=== PATIENT | female | born 1945 | race Caucasian/White ===

== ENCOUNTER 2017-06-21 02:36 | Emergency (ER) | payer MEDICARE, OTHER ==
[2017-06-21] MEDS ORDERED: Aspirin 81 MG Tab.Chew PO ONE (02:50)
[2017-06-21] MEDS: Sodium Chloride 0.9% 10 ML Syringe FLUSH PRN ×2 (02:55→04:00)
[2017-06-21] MEDS ORDERED: Nitroglycerin 0.4 MG Tab.SL SL PRN (03:51)
[2017-06-21] MEDS ORDERED: Ketorolac 30 MG/ML SDV IM ONE (03:52)
[2017-06-21] MEDS ORDERED: Ketorolac 30 MG/ML SDV IVPUSH ONE (03:54)
[2017-06-21 04:44] VITALS: BP 150/117
--- NOTE | 2017-06-21 11:01 | CR ---
INDICATION: Mid chest pain. CHEST: AP upright portable view of the chest 06/21/2017 was compared with 03/11 and 03/10/2016, revealing no definite interval change or acute process. The heart, again, appears to be enlarged. Minimal calcification in the arch of the aorta is suggested. The lungs appear to be slightly hyperaerated. A definite active infiltrate or effusion was not identified. Overlying EKG leads are noted. Evidence of exogenous obesity is noted. Degenerative changes are noted at the glenohumeral joints, left greater than right. IMPRESSION: Stable chest. No acute process. Multiple findings as noted above. MTDD
--- NOTE | 2017-06-22 01:57 | ER ---
DATE SEEN: 06/21/2017 TIME OF SERVICE: 0400 hours. HISTORY OF PRESENT ILLNESS: A 71-year-old female who came in to the ER on Monday morning with complaints of retrosternal chest pain 01/25. This started about 2100 hours. She had also fallen a few days ago and complains of pain in the left rib cage, worse with sudden movements. The pain when she presented was slightly relieved by nitroglycerin. This was not associated with any diaphoresis, vomiting, or shortness of breath. PAST MEDICAL HISTORY: I reviewed her past medical history that included type 2 diabetes, hypertension, history of PE. She was seen last year in February for similar symptoms as above and at that time the technical clerk and Dr. Shepherd believed that the pain was not cardiac based on the EKG findings and the labs. REVIEW OF SYSTEMS: She denies any anxiety, fevers, chills, cough, or cold symptoms. No constipation or heartburn. No dyspepsia. CURRENT MEDICATIONS: Please see the electronic record which was reviewed extensively. ALLERGIES: Please see the electronic record which was reviewed extensively. PHYSICAL EXAMINATION: VITAL SIGNS: Blood pressure initially 150/117, temperature 96.7, and pulse is 55, oxygenation was normal at 97%. ENT: Negative. NECK: Supple. Trachea is midline. CHEST: There is reproducible tenderness in the sternum. LUNGS: Clear. CARDIOVASCULAR: Normal. EXTREMITIES: No edema. MENTAL STATUS: Alert. LABORATORY DATA: White cell count was normal. Troponin was negative. EKG was normal. Chest x-ray was unremarkable. IMPRESSION: Atypical chest pain. PLAN: I gave her ketorolac which seemed to help some of her symptoms. I kept for six more hours so she could obtain a troponin, repeat and see if the symptoms are better. Dr. Garza will take over care at that time. /[id number] ALOK/GASTON
== END 2017-06-21 09:10 | disposition home or self-care (01) ==
LOC: FB.ED 02:36
DX: R07.89 Other chest pain (principal); E11.9 Type 2 diabetes mellitus without complications; I10 Essential (primary) hypertension; Z86.711 Personal history of pulmonary embolism
CPT/HCPCS: 36415; 71010; 80053; 82550; 82553; 84484; 85025; 93005; 99284; 99285; A9270; J1885; J7050; 96374

== ENCOUNTER 2017-07-21 08:41 | Emergency (ER) | payer MEDICARE, OTHER ==
[2017-07-21] MEDS ORDERED: Aspirin 81 MG Tab.Chew PO ONE (08:52)
[2017-07-21] MEDS ORDERED: Alum Hydroxide/Mag Hydroxide 30 ML, Lidocaine 2% 15 ML PO ONE ×4 (09:24→11:25)
--- NOTE | 2017-07-21 09:31 | EDM.PDOC ---
ED HPI GENERAL MEDICAL PROBLEM - General Chief Complaint: Chest Pain Stated Complaint: CHEST PAIN Time Seen by Provider: 07/21/17 09:05 Source of Information: Reports: Patient History Limitations: Reports: Altered Mental Status - History of Present Illness INITIAL COMMENTS - FREE TEXT/NARRATIVE: c/o lower sternal CP inc'd tender to palpation sternum, epigastrium also tender, since 3 AM, 6h has healing shingles under R breast around to back, present x 3w, pt says it gets worse when she gets flu vaccine lives in own house in [place], says her single adult son is going to move in with her no apparent distress, pleasant, talkative, says she took her morning meds on omeprazole for GERD on propranolol 80 mg qd and atenolol 100 mg qd as per EHR recent labs with CBC 1 1m ago, BUN/creat 28/1.1 1m ago (BUN 16 1y ago), mg 1.4 1y ago, CRP >20 1y ago, ammonia 69 1y ago, trop <.01 1m ago, BNP 45 1y ago recent imaging: CxR with cardiomegaly and DJD and nothing acute 1m ago EKG today with SR 47, no ST changes, RRR PMH includes dementia, DM - Related Data Allergies Allergy/AdvReac Type Severity Reaction Status Date / Time codeine Allergy Cannot Verified 07/21/17 09:07 Remember oxycodone [Oxycodone] Allergy Headache Verified 07/21/17 09:07 Penicillins Allergy Cannot Verified 07/21/17 09:07 Remember Home Meds: Home Meds Atenolol 100 mg PO WITHDINNER 04/18/14 [History] atorvaSTATin [Lipitor] 20 mg PO WITHDINNER 04/18/14 [History] carBAMazepine [Carbamazepine] 200 mg PO BID 04/18/14 [History] Albuterol Sulfate [Proair Hfa] 2 puff INH QID PRN 02/22/16 [History] Citalopram Hydrobromide [Citalopram HBr] 10 mg PO BEDTIME 02/22/16 [History] Levothyroxine Sodium [Synthroid] 75 mcg PO DAILY 02/22/16 [History] Omeprazole 20 mg PO BIDAC 02/22/16 [History] Aspirin [Adult Low Dose Aspirin EC] 81 mg PO BEDTIME 02/23/16 [History] Acetaminophen [Tylenol] 650 mg PO Q4H PRN #0 tablet 02/29/16 [Rx] Insulin Aspart [NovoLOG] See Protocol SUBCUT TIDMEALS 30 Days pen 02/29/16 [Rx] Donepezil [Aricept] 5 mg PO BEDTIME 06/21/17 [History] Gabapentin [Neurontin] 100 mg PO QID 06/21/17 [History] Insulin Detemir [Levemir] 32 unit SUBCUT DAILY 06/21/17 [History] Propranolol [Inderal LA] 80 mg PO DAILY 06/21/17 [History] glipiZIDE [Glipizide ER] 10 mg PO DAILY 06/21/17 [History] metFORMIN [Glucophage] 1,000 mg PO BIDMEALS 06/21/17 [History] Magnesium Oxide 400 mg PO DAILY #30 tab 07/21/17 [Rx] Past Medical History - Past Health History Medical/Surgical History: Denies Medical/Surgical History HEENT History: Reports: Cataract, Glaucoma, Hard of Hearing, Other (See Below) Other HEENT History: presbycusis, bryan hearing aids Cardiovascular History: Reports: High Cholesterol, Hypertension, Other (See Below) Other Cardiovascular History: Recent history of chest discomfort. Respiratory History: Reports: Sleep Apnea, Other (See Below) Other Respiratory History: uses CPAP at night Gastrointestinal History: Reports: GERD Genitourinary History: Reports: Urinary Incontinence, Other (See Below) Other Genitourinary History: urinary incontinence mostly at night MESS COOK History: Reports: Musculoskeletal History: Reports: Back Pain, Chronic, Osteoarthritis Neurological History: Reports: Neuropathy, Peripheral, Seizure Endocrine/Metabolic History: Reports: Diabetes, Type II, Hypothyroidism - Past Surgical History HEENT Surgical History: Reports: None Cardiovascular Surgical History: Reports: None GI Surgical History: Reports: Appendectomy Female Surgical History: Reports: Hysterectomy, Oophorectomy Musculoskeletal Surgical History: Reports: Carpal Tunnel, Hip Replacement, Other (See Below) Other Musculoskeletal Surgeries/Procedures:: right hip replacement Social & Family History - Family History Family Medical History: Noncontributory - Tobacco Use Smoking Status *Q: Never Smoker Second Hand Smoke Exposure: No - Caffeine Use Caffeine Use: Reports: None - Alcohol Use Days Per Week of Alcohol Use: 0 - Recreational Drug Use Recreational Drug Use: No ED ROS GENERAL - Review of Systems Review Of Systems: See Below Constitutional: Reports: No Symptoms HEENT: Reports: No Symptoms Respiratory: Reports: No Symptoms. Denies: Shortness of Breath, Wheezing, Pleuritic Chest Pain, Cough Cardiovascular: Reports: Chest Pain Endocrine: Reports: No Symptoms GI/Abdominal: Reports: Abdominal Pain. Denies: Nausea, Vomiting : Reports: No Symptoms Musculoskeletal: Reports: No Symptoms Skin: Reports: No Symptoms Neurological: Reports: Confusion Psychiatric: Reports: No Symptoms Hematologic/Lymphatic: Reports: No Symptoms Immunologic: Reports: No Symptoms ED EXAM, GENERAL - Physical Exam Exam: See Below Exam Limited By: Other (friendly, talkative, NAD, nontoxic) General Appearance: Alert, WD/WN, No Apparent Distress Eye Exam: Bilateral Eye: EOMI, Normal Inspection, PERRL Ears: Normal External Exam, Hearing Grossly Normal Nose: Normal Inspection, Normal Mucosa, No Blood Throat/Mouth: Normal Inspection, Normal Lips, Normal Oropharynx, Normal Voice, No Airway Compromise Head: Atraumatic, Normocephalic Neck: Normal Inspection, Supple, Non-Tender Respiratory/Chest: No Respiratory Distress, Lungs Clear, Normal Breath Sounds, No Accessory Muscle Use, Chest Non-Tender, Other (no dyspnea) Cardiovascular: Regular Rate, Rhythm, No Gallop, No Rub, Other (trace edema b/l , symmetric, quiet precordium, 2/6 MARIAM at LSB) GI/Abdominal: Normal Bowel Sounds, Soft, No Organomegaly, No Distention, Other ( 1+ tender at epigastrium and lower sternum) Back Exam: Normal Inspection, Full Range of Motion, NT Extremities: Normal Inspection, Non-Tender Neurological: Alert, CN II-XII Intact, No Motor/Sensory Deficits. No: Oriented , Normal Cognition Psychiatric: Normal Affect, Normal Mood Skin Exam: Warm, Dry, Intact, Normal Color, Other (under R breast is a dry maculopapular rash wrapping around the dermatone to midline of back with multiple dried ulcers of back) Course - Vital Signs Last Recorded V/S: Last Vital Signs Temp 36.8 C 07/21/17 08:45 Pulse 46 L 07/21/17 08:45 Resp 16 07/21/17 08:45 BP 135/57 L 07/21/17 08:45 Pulse Ox 97 07/21/17 08:45 - Orders/Labs/Meds Orders: Active Orders 24 hr Category Date Time Status AMMONIA [REF] Stat Lab 07/21/17 09:45 Received EKG 12 Lead [EK] Routine Ther 07/21/17 09:23 Ordered Labs: Laboratory Tests 07/21/17 07/21/17 07/21/17 Range/Units 09:45 09:45 09:45 WBC 7.1 (4.5-12.0) X10-3/uL RBC 3.97 (3.23-5.20) x10(6)uL Hgb 12.4 (11.5-15.5) g/dL Hct 37.0 (30.0-51.3) % MCV 93.2 (80-96) fL MCH 31.3 (27.7-33.6) pg MCHC 33.6 (32.2-35.4) g/dL RDW 13.7 (11.5-15.5) % Plt Count 160 (125-369) X10(3)uL MPV 8.0 (7.4-10.4) fL Neut % (Auto) 65.0 (46-82) % Lymph % (Auto) 27.8 (13-37) % [place] % (Auto) 6.9 (4-12) % Eos % (Auto) 0 L (1.0-5.0) % Baso % (Auto) 0 (0-2) % Neut # (Auto) 4.6 (1.6-8.3) # Lymph # (Auto) 2.0 (0.6-5.0) # [place]ws # (Auto) 0.5 (0.0-1.3) # Eos # (Auto) 0.0 (0.0-0.8) # Baso # (Auto) 0.0 (0.0-0.2) # Sodium 137 (135-145) mmol/L Potassium 6.0 H D (3.5-5.3) mmol/L Chloride 107 (100-110) mmol/L Carbon Dioxide 20 L (23-29) mmol/L BUN 39 H D (8-23) mg/dL Creatinine 1.2 (0.6-1.3) mg/dL Est Cr Clr Drug Dosing 32.45 mL/min Estimated GFR (MDRD) 44 L (>60) BUN/Creatinine Ratio 32.5 H (9-20) Glucose 103 (80-116) mg/dL Calcium 9.0 (8.6-10.2) mg/dL Magnesium 1.6 L (1.8-2.5) mg/dL Total Bilirubin 0.6 (0.1-1.3) mg/dL AST 15 D (5-27) IU/L ALT 14 (14-26) IU/L Alkaline Phosphatase 50 L (56-112) IU/L Troponin I < 0.01 L (0.02-0.06) NG/ML C-Reactive Protein < 0.5 (0.0-1.0) mg/dL Total Protein 7.2 (6.0-8.0) g/dL Albumin 4.0 (3.2-4.6) g/dL Globulin 3.2 g/dL Albumin/Globulin Ratio 1.3 Amylase (28-100) U/L Carbamazepine (4.0-10.0) Ug/mL 07/21/17 Range/Units 09:45 WBC (4.5-12.0) X10-3/uL RBC (3.23-5.20) x10(6)uL Hgb (11.5-15.5) g/dL Hct (30.0-51.3) % MCV (80-96) fL MCH (27.7-33.6) pg MCHC (32.2-35.4) g/dL RDW (11.5-15.5) % Plt Count (125-369) X10(3)uL MPV (7.4-10.4) fL Neut % (Auto) (46-82) % Lymph % (Auto) (13-37) % [place] % (Auto) (4-12) % Eos % (Auto) (1.0-5.0) % Baso % (Auto) (0-2) % Neut # (Auto) (1.6-8.3) # Lymph # (Auto) (0.6-5.0) # Mathews # (Auto) (0.0-1.3) # Eos # (Auto) (0.0-0.8) # Baso # (Auto) (0.0-0.2) # Sodium (135-145) mmol/L Potassium (3.5-5.3) mmol/L Chloride (100-110) mmol/L Carbon Dioxide (23-29) mmol/L BUN (8-23) mg/dL Creatinine (0.6-1.3) mg/dL Est Cr Clr Drug Dosing mL/min Estimated GFR (MDRD) (>60) BUN/Creatinine Ratio (9-20) Glucose (80-116) mg/dL Calcium (8.6-10.2) mg/dL Magnesium (1.8-2.5) mg/dL Total Bilirubin (0.1-1.3) mg/dL AST (5-27) IU/L ALT (14-26) IU/L Alkaline Phosphatase (56-112) IU/L Troponin I (0.02-0.06) NG/ML C-Reactive Protein (0.0-1.0) mg/dL Total Protein (6.0-8.0) g/dL Albumin (3.2-4.6) g/dL Globulin g/dL Albumin/Globulin Ratio Amylase 76 (28-100) U/L Carbamazepine 7.7 (4.0-10.0) Ug/mL Meds: Medications Discontinued Medications Generic Name Dose Route Start Last Admin Trade Name Freq PRN Reason Stop Dose Admin Aspirin 324 mg 07/21/17 08:52 07/21/17 08:52 Aspirin PO 07/21/17 08:53 324 mg ONETIME ONE Administration Al Hydroxide/Mg Hydroxide 30 0 ml 07/21/17 09:24 07/21/17 09:41 ml/ Lidocaine HCl 15 ml PO 07/21/17 09:25 15 ml ONETIME ONE Administration Al Hydroxide/Mg Hydroxide 30 0 ml 07/21/17 11:25 07/21/17 11:35 ml/ Lidocaine HCl 15 ml PO 07/21/17 11:26 15 ml ONETIME ONE Administration - Re-Assessments/Exams Free Text/Narrative Re-Assessment/Exam: 07/21/17 11:23 pt apparently had apt in clinic today but decided to take a taxi to ED instead epigastric pain and tenderness gone after GI cocktail, now back a little bit and will repeat GI cocktail I repeated 3x times that she had GERD and needed to increase fluids and use liquid antacids, pt did not seem to understand altho she did know today's day and date she continues to smile and is cheerful Departure - Departure Time of Disposition: 11:28 Disposition: Home, Self-Care 01 Condition: Good Clinical Impression: GERD (gastroesophageal reflux disease), Dehydration, Elevated BUN, Hypomagnesemia, Sinus bradycardia, Hyperkalemia Prescriptions: Magnesium Oxide 400 mg PO DAILY #30 tab Referrals: Newton Jacobs MD [Primary Care Provider] - Forms: ED Department Discharge Additional Instructions: To increase your heart rate, stop taking the propranolol. Continue your other medications. To replace your magnesium, start taking magnesium oxide 400 mg 1 tab daily. Increase your fluids as you are dehydrated. Drink at least 1.5 liters of fluids without caffeine daily. For heartburn (pain in your lower sternum and upper abdomen), take liquid antacids (such as Maalox or Mylanta) 2 tablespoons 2 hours after meals and bedtime for 1 week, then every 4 hours as needed. See Dr Jacobs in 3 days. Return to ED if you are feeling worse. - My Orders Last 24 Hours: My Active Orders 07/21/17 09:23 EKG 12 Lead [EK] Routine 07/21/17 09:45 AMMONIA [REF] Stat - Assessment/Plan Last 24 Hours: My Active Orders 07/21/17 09:23 EKG 12 Lead [EK] Routine 07/21/17 09:45 AMMONIA [REF] Stat
[2017-07-21 10:18] VITALS: BP 135/57
== END 2017-07-21 12:43 | disposition home or self-care (01) ==
LOC: FB.ED 08:41
DX: K21.9 Gastro-esophageal reflux disease without esophagitis (principal); E86.0 Dehydration; E83.42 Hypomagnesemia; R00.1 Bradycardia, unspecified; E87.5 Hyperkalemia; R79.89 Other specified abnormal findings of blood chemistry; I10 Essential (primary) hypertension; E11.9 Type 2 diabetes mellitus without complications; Z79.4 Long term (current) use of insulin; Z79.899 Other long term (current) drug therapy; Z88.0 Allergy status to penicillin; Z88.5 Allergy status to narcotic agent; Z88.6 Allergy status to analgesic agent
CPT/HCPCS: 36415; 80053; 80156; 82140; 82150; 83735; 84484; 85025; 86140; 93005; 99283; A9270; 99284

== ENCOUNTER 2017-08-01 09:48 | Emergency (ER) | payer MEDICARE, OTHER ==
[2017-08-01 09:52] VITALS: BP 172/59
[2017-08-01] MEDS ORDERED: Alum Hydroxide/Mag Hydroxide 15 ML, Lidocaine 2% 15 ML PO ONE ×2 (10:13)
--- NOTE | 2017-08-01 10:50 | EDM.PDOC ---
ED HPI GENERAL MEDICAL PROBLEM - General Chief Complaint: Chest Pain Stated Complaint: CHEST PAIN Time Seen by Provider: 08/01/17 10:01 Source of Information: Reports: Patient History Limitations: Reports: No Limitations - History of Present Illness INITIAL COMMENTS - FREE TEXT/NARRATIVE: c/o epigastric pain daily had sharp epigastric pain last night, went to bed at 9 PM and slept until 5:30 AM, still with epigastric pain and some under lower sternum, not taken AA, on omeprazole, not eaten today had same sxs 11d ago in ED and dx with GERD, pain relieved with GI cocktail x 2 , has not been taking AA 30 cc QID as prescribed, did take Mg for low Mg has not seen PCP Dr Jacobs who is on vacation, has an apt with him 08/16 no n/v, no f/c/d, no sob Chest Pain Score (Numeric/FACES): 2 - Related Data Allergies Allergy/AdvReac Type Severity Reaction Status Date / Time codeine Allergy Cannot Verified 08/01/17 09:50 Remember oxycodone [Oxycodone] Allergy Headache Verified 08/01/17 09:50 Penicillins Allergy Cannot Verified 08/01/17 09:50 Remember Home Meds: Home Meds Atenolol 100 mg PO WITHDINNER 04/18/14 [History] atorvaSTATin [Lipitor] 20 mg PO WITHDINNER 04/18/14 [History] carBAMazepine [Carbamazepine] 200 mg PO BID 04/18/14 [History] Citalopram Hydrobromide [Citalopram HBr] 10 mg PO BEDTIME 02/22/16 [History] Levothyroxine Sodium [Synthroid] 75 mcg PO DAILY 02/22/16 [History] Omeprazole 20 mg PO BIDAC 02/22/16 [History] Aspirin [Adult Low Dose Aspirin EC] 81 mg PO BEDTIME 02/23/16 [History] Acetaminophen [Tylenol] 650 mg PO Q4H PRN #0 tablet 02/29/16 [Rx] Insulin Aspart [NovoLOG] See Protocol SUBCUT TIDMEALS 30 Days pen 02/29/16 [Rx] Donepezil [Aricept] 5 mg PO BEDTIME 06/21/17 [History] Gabapentin [Neurontin] 300 mg PO TID 06/21/17 [History] Insulin Detemir [Levemir] 32 unit SUBCUT BEDTIME 06/21/17 [History] Propranolol [Inderal LA] 80 mg PO DAILY 06/21/17 [History] glipiZIDE [Glipizide ER] 10 mg PO DAILY 06/21/17 [History] metFORMIN [Glucophage] 1,000 mg PO BIDMEALS 06/21/17 [History] Ferrous Sulfate 1 tab PO DAILY 07/21/17 [History] Magnesium Oxide 400 mg PO DAILY #30 tab 07/21/17 [Rx] traMADol [Ultram] 1 tab PO DAILY PRN 07/21/17 [History] Sucralfate 1 gm PO QID #40 tablet 08/01/17 [Rx] Past Medical History - Past Health History Medical/Surgical History: Denies Medical/Surgical History HEENT History: Reports: Cataract, Glaucoma, Hard of Hearing, Other (See Below) Other HEENT History: presbycusis, bryan hearing aids Cardiovascular History: Reports: High Cholesterol, Hypertension, Other (See Below) Other Cardiovascular History: Recent history of chest discomfort. Respiratory History: Reports: Sleep Apnea, Other (See Below) Other Respiratory History: uses CPAP at night Gastrointestinal History: Reports: GERD Genitourinary History: Reports: Urinary Incontinence, Other (See Below) Other Genitourinary History: urinary incontinence mostly at night [employer] History: Reports: Musculoskeletal History: Reports: Back Pain, Chronic, Osteoarthritis Neurological History: Reports: Neuropathy, Peripheral, Seizure Endocrine/Metabolic History: Reports: Diabetes, Type II, Hypothyroidism - Infectious Disease History Infectious Disease History: Reports: Chicken Pox, Shingles - Past Surgical History HEENT Surgical History: Reports: None Cardiovascular Surgical History: Reports: None GI Surgical History: Reports: Appendectomy Female Surgical History: Reports: Hysterectomy, Oophorectomy Musculoskeletal Surgical History: Reports: Carpal Tunnel, Hip Replacement, Other (See Below) Other Musculoskeletal Surgeries/Procedures:: right hip replacement Social & Family History - Family History Family Medical History: Noncontributory - Tobacco Use Smoking Status *Q: Never Smoker Second Hand Smoke Exposure: No - Caffeine Use Caffeine Use: Reports: None - Alcohol Use Days Per Week of Alcohol Use: 0 - Recreational Drug Use Recreational Drug Use: No ED ROS GENERAL - Review of Systems Review Of Systems: See Below Constitutional: Reports: No Symptoms HEENT: Reports: No Symptoms Respiratory: Reports: No Symptoms Cardiovascular: Reports: No Symptoms Endocrine: Reports: No Symptoms GI/Abdominal: Reports: Abdominal Pain : Reports: No Symptoms Musculoskeletal: Reports: No Symptoms Skin: Reports: No Symptoms Neurological: Reports: No Symptoms Psychiatric: Reports: No Symptoms Hematologic/Lymphatic: Reports: No Symptoms Immunologic: Reports: No Symptoms ED EXAM, GI/ABD - Physical Exam Exam: See Below Exam Limited By: No Limitations General Appearance: Alert, WD/WN, No Apparent Distress Head: Atraumatic, Normocephalic Neck: Normal Inspection Respiratory/Chest: No Respiratory Distress, Lungs Clear, Normal Breath Sounds, No Accessory Muscle Use, Chest Non-Tender Cardiovascular: Normal Peripheral Pulses, Regular Rate, Rhythm, No Edema, No Gallop, No JVD, No Rub GI/Abdominal Exam: Normal Bowel Sounds, Soft, No Organomegaly, No Distention, No Mass, Other (1+ epigastric pain localized below xiphoid, sternum NT) Back Exam: Normal Inspection, Full Range of Motion, NT Extremities: Normal Inspection, Normal Range of Motion, Non-Tender, No Pedal Edema Neurological: Alert, Oriented, CN II-XII Intact, No Motor/Sensory Deficits Psychiatric: Normal Affect, Normal Mood Skin Exam: Warm, Dry, Intact, Normal Color, No Rash Lymphatic: No Adenopathy Course - Vital Signs Last Recorded V/S: Last Vital Signs Temp 36.7 C 08/01/17 09:51 Pulse 50 L 08/01/17 09:51 Resp 18 08/01/17 09:51 BP 172/59 H 08/01/17 09:51 Pulse Ox 96 08/01/17 09:51 - Orders/Labs/Meds Orders: Active Orders 24 hr Category Date Time Status EKG 12 Lead [EK] Routine Ther 08/01/17 10:33 Ordered Labs: Laboratory Tests 08/01/17 08/01/17 08/01/17 Range/Units 10:20 10:20 10:20 WBC 5.0 (4.5-12.0) X10-3/uL RBC 3.68 (3.23-5.20) x10(6)uL Hgb 11.3 L (11.5-15.5) g/dL Hct 34.4 (30.0-51.3) % MCV 93.5 (80-96) fL MCH 30.8 (27.7-33.6) pg MCHC 32.9 (32.2-35.4) g/dL RDW 14.1 (11.5-15.5) % Plt Count 165 (125-369) X10(3)uL MPV 8.2 (7.4-10.4) fL Neut % (Auto) 54.5 (46-82) % Lymph % (Auto) 34.0 (13-37) % [place] % (Auto) 10.9 (4-12) % Eos % (Auto) 0 L (1.0-5.0) % Baso % (Auto) 1 (0-2) % Neut # (Auto) 2.8 (1.6-8.3) # Lymph # (Auto) 1.7 (0.6-5.0) # [place] # (Auto) 0.5 (0.0-1.3) # Eos # (Auto) 0.0 (0.0-0.8) # Baso # (Auto) 0.0 (0.0-0.2) # Sodium 137 (135-145) mmol/L Potassium 5.1 (3.5-5.3) mmol/L Chloride 104 (100-110) mmol/L Carbon Dioxide 28 (23-29) mmol/L BUN 29 H D (8-23) mg/dL Creatinine 1.0 (0.6-1.3) mg/dL Est Cr Clr Drug Dosing 38.94 mL/min Estimated GFR (MDRD) 55 L (>60) BUN/Creatinine Ratio 29.0 H (9-20) Glucose 103 (80-116) mg/dL Calcium 9.0 (8.6-10.2) mg/dL Magnesium 2.0 (1.8-2.5) mg/dL Troponin I < 0.01 L (0.02-0.06) NG/ML Meds: Medications Discontinued Medications Generic Name Dose Route Start Last Admin Trade Name Bhupendraq PRN Reason Stop Dose Admin Al Hydroxide/Mg Hydroxide 15 0 ml 08/01/17 10:13 08/01/17 10:18 ml/ Lidocaine HCl 15 ml PO 08/01/17 10:14 15 ml ONETIME ONE Administration Al Hydroxide/Mg Hydroxide 30 0 ml 08/01/17 11:00 08/01/17 11:11 ml/ Lidocaine HCl 15 ml PO 08/01/17 11:01 45 ml ONETIME ONE Administration - Re-Assessments/Exams Free Text/Narrative Re-Assessment/Exam: 08/01/17 11:26 BUN 29 and down from 39 c/w inc'd fluid intake Mg corrected form 1.6 to 2.0, pt asked re taking Mg oxide 400 mg bid rather than qd, altho qd has worked just fine trop neg at <0.01, EKG neg hgb now 11.3, was 12.4, cannot exclude PUD was oozing RBC, however the decrease in hgb more likely d/t rehydration may need EGD if sxs persist, will add carafate pain and tender in epigastrium gone after GI cocktail x 2 Departure - Departure Time of Disposition: 11:28 Disposition: Home, Self-Care 01 Condition: Good Clinical Impression: GERD (gastroesophageal reflux disease) - Discharge Information Prescriptions: Sucralfate 1 gm PO QID #40 tablet Referrals: Newton Jacobs MD [Primary Care Provider] - Forms: ED Department Discharge Additional Instructions: To decrease acid production, continue the omeprazole 20 mg daily. To neutralize acid, continue with liquid antacid 15 cc 2 hours after meals and bedtime for 10 days. To coat and protect the stomach, add sucralfate 1 gm 1 tab 1 hour before meals and bedtime for 10 days. Continue the magnesium oxide 400 mg 1 tab daily, which is working just fine, as your magnesium level has now corrected back to normal. Continue your other meds. See Dr Jacobs on 08/16 as scheduled. Call your Physician or Return to Emergency Department if: * Your condition worsens in any way. * You develop fever greater than 100.4. * You have vomitting that does not stop with medications. * You have pain that is not controlled with medications. - My Orders Last 24 Hours: My Active Orders 08/01/17 10:33 EKG 12 Lead [EK] Routine - Assessment/Plan Last 24 Hours: My Active Orders 08/01/17 10:33 EKG 12 Lead [EK] Routine
[2017-08-01] MEDS ORDERED: Alum Hydroxide/Mag Hydroxide 30 ML, Lidocaine 2% 15 ML PO ONE ×2 (11:00)
== END 2017-08-01 11:40 | disposition home or self-care (01) ==
LOC: FB.ED 09:48
DX: K21.9 Gastro-esophageal reflux disease without esophagitis (principal); I10 Essential (primary) hypertension; E78.00 Pure hypercholesterolemia, unspecified; G47.30 Sleep apnea, unspecified; E11.42 Type 2 diabetes mellitus with diabetic polyneuropathy; E03.9 Hypothyroidism, unspecified; Z79.4 Long term (current) use of insulin; Z79.82 Long term (current) use of aspirin; Z79.899 Other long term (current) drug therapy; Z88.0 Allergy status to penicillin; Z88.5 Allergy status to narcotic agent; Z88.6 Allergy status to analgesic agent
CPT/HCPCS: 36415; 80048; 83735; 84484; 85025; 93005; 99285; A9270; 99284

== ENCOUNTER 2018-09-11 11:55 | Inpatient (IN) | payer MEDICARE, OTHER ==
[2018-09-12] MEDS ORDERED: Magnesium Hydroxide 400 MG/5 ML Susp 30 ML Cup PO PRN (12:43)
[2018-09-12] MEDS ORDERED: Bisacodyl 5 MG Tab PO PRN (12:43)
[2018-09-12] MEDS ORDERED: Sodium Chloride 0.65% Nasal Spray 45 ML Bottle NASBOTH PRN (12:43)
[2018-09-12] MEDS ORDERED: Bisacodyl 10 MG Supp RECTAL PRN (12:43)
[2018-09-12] MEDS ORDERED: Acetaminophen 325 MG Tab PO SCH (14:00)
[2018-09-12] MEDS: oxyCODONE 5 MG Tab PO PRN (17:10)
[2018-09-12] MEDS ORDERED: Ertapenem 1 GM Vial IV SCH (18:00)
--- NOTE | 2018-09-12 18:17 | PCM.HP ---
H&P History of Present Illness - General Date of Service: 09/12/18 Admit Problem/Dx: Admission Diagnosis/Problem Admission Diagnosis/Problem Hip fracture requiring operative repair Source of Information: Patient History Limitations: Reports: No Limitations - History of Present Illness Initial Comments - Free Text/Narative: This is a 72 y/o old female that had a hip revision in [facility] for infected joint. She was transferred back here for Iv antibiotics and PT/OT. She has no other concerns other than right hip soreness. Denies fevers, chills or night sweats. left hip Pain Score (Numeric/FACES): 5 - Related Data Allergies/Adverse Reactions: Allergies Allergy/AdvReac Type Severity Reaction Status Date / Time codeine Allergy Headache Verified 07/06/18 13:47 oxycodone [Oxycodone] Allergy Headache Verified 07/06/18 13:47 Penicillins Allergy Cannot Verified 07/06/18 13:47 Remember Home Medications: Home Meds Atenolol 50 mg PO BID 04/18/14 [History] carBAMazepine [Carbamazepine] 200 mg PO BID 04/18/14 [History] Citalopram Hydrobromide [Citalopram HBr] 10 mg PO DAILY 02/22/16 [History] Levothyroxine Sodium [Synthroid] 75 mcg PO QAM 02/22/16 [History] Ferrous Sulfate 325 mg PO DAILY 07/09/18 [History] Magnesium Hydroxide [Milk of Magnesia] 30 ml PO BID PRN cup 08/21/18 [Rx] Pantoprazole [ProTONIX] 40 mg PO DAILY@0600 tab.cr 08/21/18 [Rx] Polyethylene Glycol 3350 [MiraLAX] 17 gm PO DAILY packet 09/05/18 [Rx] Acetaminophen [Tylenol] 650 mg PO Q6H 09/12/18 [History] Ascorbic Acid [Vitamin C] 500 mg PO DAILY 09/12/18 [History] Bisacodyl 10 mg RECTAL DAILY PRN 09/12/18 [History] Bisacodyl [Dulcolax] 5 mg PO BID PRN 09/12/18 [History] Cetirizine [ZyrTEC] 10 mg PO DAILY 09/12/18 [History] DAPTOmycin [Cubicin] 500 mg IV Q48H 09/12/18 [History] Ertapenem [INVanz] 1 gm IV Q24H 09/12/18 [History] Heparin Sodium,Porcine [Heparin Sodium] 5,000 unit SUBCUT Q12H 09/12/18 [History ] Insulin Aspart [NovoLOG] 2 - 12 unit SUBCUT TIDMEALS 09/12/18 [History] Insulin Aspart [NovoLOG] 5 units SUBCUT TIDMEALS 09/12/18 [History] Insulin Detemir [Levemir] 25 units SUBCUT BEDTIME 09/12/18 [History] Magnesium Oxide 500 mg PO BID 09/12/18 [History] Melatonin 3 mg PO BEDTIME 09/12/18 [History] Sodium Chloride [[place]] 2 spray NASBOTH Q2H PRN 09/12/18 [History] Thiamine [Vitamin B-1] 100 mg PO DAILY 09/12/18 [History] oxyCODONE 2.5 mg PO Q4H PRN 09/12/18 [History] Past Medical History - Past Health History Medical/Surgical History: Denies Medical/Surgical History HEENT History: Reports: Cataract, Glaucoma, Hard of Hearing, Other (See Below) Other HEENT History: Presbycusis. Bilateral hearing aids Cardiovascular History: Reports: High Cholesterol, Hypertension, Other (See Below) Other Cardiovascular History: history of chest discomfort. BLOOD CLOTTING DISORDER. HYPERTENSIVE CRISIS Respiratory History: Reports: Asthma, Sleep Apnea, Other (See Below) Other Respiratory History: Uses CPAP at night. Gastrointestinal History: Reports: GERD Genitourinary History: Reports: Urinary Incontinence, Other (See Below) Other Genitourinary History: Urinary incontinence mostly at night. 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 LEFT KNEE INSTABILITY Neurological History: Reports: Neuropathy, Peripheral, Seizure Psychiatric History: Reports: None Endocrine/Metabolic History: Reports: Diabetes, Type II, Hypothyroidism, Obesity /BMI 30+ Hematologic History: Reports: Bleeding Disorder Immunologic History: Reports: None Oncologic (Cancer) History: Reports: Uterine Dermatologic History: Reports: None - Infectious Disease History Infectious Disease History: Reports: Chicken Pox, Shingles - Past Surgical History HEENT Surgical History: Reports: None Cardiovascular Surgical History: Reports: None Respiratory Surgical History: Reports: None GI Surgical History: Reports: Appendectomy Female Surgical History: Reports: Hysterectomy, Oophorectomy Endocrine Surgical History: Reports: None Neurological Surgical History: Reports: None Musculoskeletal Surgical History: Reports: Carpal Tunnel, Hip Replacement, Other (See Below) Other Musculoskeletal Surgeries/Procedures:: Right hip replacement. left hip replacement. BUNIONECTOMY Dermatological Surgical History: Reports: None Social & Family History - Family History Family Medical History: Noncontributory - Caffeine Use Caffeine Use: Reports: None H&P Review of Systems - Review of Systems: Review Of Systems: See Below General: Reports: No Symptoms HEENT: Reports: No Symptoms Pulmonary: Reports: No Symptoms Cardiovascular: Reports: No Symptoms Gastrointestinal: Reports: No Symptoms Genitourinary: Reports: No Symptoms Musculoskeletal: Reports: Joint Pain Skin: Reports: No Symptoms Psychiatric: Reports: No Symptoms Neurological: Reports: No Symptoms Hematologic/Lymphatic: Reports: No Symptoms Immunologic: Reports: No Symptoms Exam - Exam Exam: See Below - Vital Signs Vital Signs: Last Vital Signs Temp 97.8 F 09/12/18 12:20 Pulse 52 L 09/12/18 12:20 Resp 16 09/12/18 12:20 BP 158/67 H 09/12/18 12:20 Pulse Ox 99 09/12/18 12:40 - Exam General: Alert, Oriented, Cooperative HEENT: Hearing Intact, Mucosa Moist & [place], Posterior Pharynx Clear, TMs Clear Neck: Supple, Trachea Midline Lungs: Clear to Auscultation, Normal Respiratory Effort Cardiovascular: Regular Rate, Regular Rhythm. No: Systolic Murmur GI/Abdominal Exam: Normal Bowel Sounds, Non-Tender, No Distention Back Exam: Normal Inspection, Full Range of Motion Extremities: Normal Inspection, No Pedal Edema Skin: Warm, Dry, Intact Neurological: Normal Speech, Normal Tone Psychiatric: Alert, Normal Affect, Normal Mood - Patient Data Lab Results Last 24 hrs: Laboratory Results - last 24 hr 09/12/18 Range/Units 17:27 POC Glucose 144 H (80-116) mg/dL - Problem List (1) Diabetes type 2, controlled SNOMED Code(s): 39844452, 783462049 ICD Code: E11.9 - TYPE 2 DIABETES MELLITUS WITHOUT COMPLICATIONS Status: Acute Current Visit: No Problem Details: Blood sugars have been well controlled to promote wound healing with all sugars under 200 since 08/17/2018. Continue long acting and short acting insulin. (2) Primary osteoarthritis of left hip SNOMED Code(s): 796146120, 223410747 ICD Code: M16.12 - UNILATERAL PRIMARY OSTEOARTHRITIS, LEFT HIP Status: Acute Current Visit: No (3) Prosthetic joint infection of left hip SNOMED Code(s): 122031082, 079997017 ICD Code: T84.52XA - INFECT/INFLM REACTION DUE TO INTERNAL LEFT HIP PROSTH, INIT Status: Acute Current Visit: No Problem Details: Being managed and followed by Dr. Wallis. He is managing the antibiotic therapy, wound care, and anticoagulation per his request. Plans to take patient back to OR today for revision of wound and secondary closure. Qualifiers: Problem List Initiated/Reviewed/Updated: Yes Orders Last 24hrs: Active Orders 24 hr Category Date Time Status Patient Status [ADT] Routine ADT 09/12/18 12:40 Active Activity as Tolerated [RC] .Routine Care 09/12/18 13:48 Active Blood Glucose Check, Bedside [RC] 07,17 Care 09/12/18 12:40 Active Height and Weight [RC] .WE Care 09/12/18 12:40 Active May Shower [RC] ASDIRECTED Care 09/12/18 13:49 Active Oxygen Therapy [RC] PRN Care 09/12/18 12:40 Active Up With Assistance [RC] 09,13,17,21 Care 09/12/18 12:40 Active VTE/DVT Education [RC] UPON Care 09/12/18 12:40 Active Vital Signs [RC] 08 Care 09/12/18 12:40 Active OT Evaluation and Treatment [CONS] Routine Cons 09/12/18 12:40 Active PT Evaluation and Treatment [CONS] Routine Cons 09/12/18 12:40 Active Consistent Carbohydrate Diet [DIET] Diet 09/12/18 Dinner Active C-REACTIVE PROTEIN [CHEM] WEEKLY Lab 09/24/18 06:00 Ordered C-REACTIVE PROTEIN [CHEM] WEEKLY Lab 10/01/18 06:00 Ordered C-REACTIVE PROTEIN [CHEM] WEEKLY Lab 10/08/18 06:00 Ordered C-REACTIVE PROTEIN [CHEM] WEEKLY Lab 10/15/18 06:00 Ordered C-REACTIVE PROTEIN [CHEM] WEEKLY Lab 09/17/18 06:00 Ordered CBC WITH AUTO DIFF [HEME] WEEKLY Lab 09/24/18 06:00 Ordered CBC WITH AUTO DIFF [HEME] WEEKLY Lab 10/01/18 06:00 Ordered CBC WITH AUTO DIFF [HEME] WEEKLY Lab 10/08/18 06:00 Ordered CBC WITH AUTO DIFF [HEME] WEEKLY Lab 10/15/18 06:00 Ordered CBC WITH AUTO DIFF [HEME] WEEKLY Lab 09/17/18 06:00 Ordered COMPREHENSIVE METABOLIC PN,CMP [CHEM] WEEKLY Lab 09/24/18 06:00 Ordered COMPREHENSIVE METABOLIC PN,CMP [CHEM] WEEKLY Lab 10/01/18 06:00 Ordered COMPREHENSIVE METABOLIC PN,CMP [CHEM] WEEKLY Lab 10/08/18 06:00 Ordered COMPREHENSIVE METABOLIC PN,CMP [CHEM] WEEKLY Lab 10/15/18 06:00 Ordered COMPREHENSIVE METABOLIC PN,CMP [CHEM] WEEKLY Lab 09/17/18 06:00 Ordered CREATINE KINASE,CK [CHEM] WEEKLY Lab 09/24/18 06:00 Ordered CREATINE KINASE,CK [CHEM] WEEKLY Lab 10/01/18 06:00 Ordered CREATINE KINASE,CK [CHEM] WEEKLY Lab 10/08/18 06:00 Ordered CREATINE KINASE,CK [CHEM] WEEKLY Lab 10/15/18 06:00 Ordered CREATINE KINASE,CK [CHEM] WEEKLY Lab 09/17/18 06:00 Ordered SEDIMENTATION RATE MANUAL [HEME] WEEKLY Lab 09/24/18 06:00 Ordered SEDIMENTATION RATE MANUAL [HEME] WEEKLY Lab 10/01/18 06:00 Ordered SEDIMENTATION RATE MANUAL [HEME] WEEKLY Lab 10/08/18 06:00 Ordered SEDIMENTATION RATE MANUAL [HEME] WEEKLY Lab 10/15/18 06:00 Ordered SEDIMENTATION RATE MANUAL [HEME] WEEKLY Lab 09/17/18 06:00 Ordered Acetaminophen [Tylenol] Med 09/12/18 20:00 Active 650 mg PO Q6H Ascorbic Acid [Vitamin C] Med 09/13/18 09:00 Active 500 mg PO DAILY Atenolol [Tenormin] Med 09/12/18 21:00 Active 50 mg PO BID Bisacodyl [Dulcolax] Med 09/12/18 12:43 Active 10 mg RECTAL DAILY PRN Bisacodyl [Dulcolax] Med 09/12/18 12:43 Active 5 mg PO BID PRN Cetirizine [ZyrTEC] Med 09/13/18 09:00 Active 10 mg PO DAILY Citalopram [Celexa] Med 09/13/18 09:00 Active 10 mg PO DAILY DAPTOmycin [Cubicin] 500 mg Med 09/13/18 09:00 Active Sodium Chloride 0.9% [Normal Saline] 10 ml IVPUSH Q48H Ertapenem [INVanz] 0.5 gm Med 09/12/18 18:00 Active Sodium Chloride 0.9% [Normal Saline] 50 ml IV Q24H Ferrous Sulfate Med 09/13/18 09:00 Active 325 mg PO DAILY Heparin Sodium Med 09/12/18 21:00 Active 5,000 units SUBCUT Q12H Insulin Glarg,Human.Rec.Analog [LantUS Solostar] Med 09/12/18 21:00 Active 25 units SUBCUT BEDTIME Insulin Lispro [HumaLOG] Med 09/12/18 18:00 Active 5 unit SUBCUT TIDMEALS Levothyroxine Med 09/13/18 06:00 Active 75 mcg PO QAM Magnesium Hydroxide [Milk of Magnesia] Med 09/12/18 12:43 Active 30 ml PO BID PRN Magnesium Oxide Med 09/12/18 21:00 Active 400 mg PO BID Melatonin Med 09/12/18 21:00 Active 3 mg PO BEDTIME Pantoprazole [ProTONIX] Med 09/13/18 06:00 Active 40 mg PO DAILY@0600 Sodium Chloride 0.65% [[place] Nasal [place]] Med 09/12/18 12:43 Active 0 ml NASBOTH Q2H PRN Thiamine [Vitamin B-1] Med 09/13/18 09:00 Active 100 mg PO DAILY carBAMazepine [TEGretol Tab] Med 09/12/18 21:00 Active 200 mg PO BID oxyCODONE Med 09/12/18 12:43 Active 2.5 mg PO Q4H PRN Weight bearing status [OM.PC] Routine Oth 09/12/18 13:48 Ordered Resuscitation Status Routine Resus Stat 09/12/18 12:40 Ordered Medication Orders Acetaminophen (Tylenol) 650 mg PO Q6H [facility] Ascorbic Acid (Vitamin C) 500 mg PO DAILY [facility] Atenolol (Tenormin) 50 mg PO BID [facility] Bisacodyl (Dulcolax) 10 mg RECTAL DAILY PRN PRN Reason: Constipation Bisacodyl (Dulcolax) 5 mg PO BID PRN PRN Reason: Constipation Carbamazepine (Tegretol Tab) 200 mg PO BID [facility] Cetirizine HCl (Zyrtec) 10 mg PO DAILY [facility] Citalopram Hydrobromide (Celexa) 10 mg PO DAILY [facility] Ferrous Sulfate (Ferrous Sulfate) 325 mg PO DAILY [facility] Heparin Sodium (Porcine) (Heparin Sodium) 5,000 units SUBCUT Q12H [facility] Daptomycin 500 mg/ Sodium (Chloride) 10 mls @ 300 mls/hr IVPUSH Q48H [facility] Stop: 10/17/18 23:59 Ertapenem 0.5 gm/ Sodium (Chloride) 50 mls @ 100 mls/hr IV Q24H [facility] Stop: 10/17/18 23:59 Insulin Glargine (Lantus Solostar) 25 units SUBCUT BEDTIME [facility] Insulin Human Lispro (Humalog) 5 unit SUBCUT TIDMEALS [facility] Levothyroxine Sodium (Levothyroxine) 75 mcg PO QAM [facility] Magnesium Hydroxide (Milk Of Magnesia) 30 ml PO BID PRN PRN Reason: Constipation Magnesium Oxide (Magnesium Oxide) 400 mg PO BID [facility] Melatonin (Melatonin) 3 mg PO BEDTIME [facility] Oxycodone HCl (Oxycodone) 2.5 mg PO Q4H PRN PRN Reason: MODERATE PAIN Last Admin: 09/12/18 17:10 Dose: 2.5 mg Pantoprazole Sodium (Protonix) 40 mg PO DAILY@0600 [facility] Sodium Chloride ([place] Nasal [place]) 0 ml NASBOTH Q2H PRN PRN Reason: Congestion Thiamine HCl (Vitamin B-1) 100 mg PO DAILY [facility] Assessment/Plan Comment:: 1. admit to swing bed 2. DM diet 3. PT/OT and continue Iv antibiiotics. 4. activity up per PT 5. Accuchecks bid 6. resume medications for [place] reviewed and ordered.
[2018-09-12] MEDS: Insulin Lispro 100 Unit/ML 3 ML KwikPen SUBCUT SCH (18:33)
[2018-09-12] MEDS: Acetaminophen 325 MG Tab PO SCH (20:38)
[2018-09-12] MEDS: Magnesium Oxide 400 MG Tab PO SCH (20:39)
[2018-09-12] MEDS: Heparin Sodium 5,000 Units/ML Vial SUBCUT SCH (20:39)
[2018-09-12] MEDS: carBAMazepine 200 MG Tab PO SCH (20:39)
[2018-09-12] MEDS: Atenolol 50 MG Tab PO SCH (20:40)
[2018-09-12] MEDS: Melatonin 3 MG Tab PO SCH (20:42)
[2018-09-12] MEDS: Insulin Glargine,Human Rec. Analog 100 Units/ML 3 ML Pen SUBCUT SCH (20:45)
[2018-09-13] MEDS: oxyCODONE 5 MG Tab PO PRN ×2 (02:46→12:49)
[2018-09-13] MEDS: Acetaminophen 325 MG Tab PO SCH ×4 (02:46→19:50)
[2018-09-13] MEDS: Pantoprazole 40 MG Tab.CR PO SCH (06:00)
[2018-09-13] MEDS: Levothyroxine 75 MCG Tab PO SCH (06:00)
[2018-09-13] MEDS: Insulin Lispro 100 Unit/ML 3 ML KwikPen SUBCUT SCH ×3 (08:05→18:30)
[2018-09-13] MEDS ORDERED: Ondansetron 4 MG Tab.DIS ONE (08:47)
[2018-09-13] MEDS: Ondansetron 4 MG Tab.DIS PO PRN (08:50)
[2018-09-13] MEDS ORDERED: DAPTOmycin 500 MG Vial IV SCH (09:00)
[2018-09-13] MEDS: Cetirizine 10 MG Tab PO SCH (09:32)
[2018-09-13] MEDS: Magnesium Oxide 400 MG Tab PO SCH ×2 (09:32→20:01)
[2018-09-13] MEDS: Atenolol 50 MG Tab PO SCH ×2 (09:32→20:00)
[2018-09-13] MEDS: Thiamine 100 MG Tab PO SCH (09:32)
[2018-09-13] MEDS: carBAMazepine 200 MG Tab PO SCH ×2 (09:32→20:01)
[2018-09-13] MEDS: Heparin Sodium 5,000 Units/ML Vial SUBCUT SCH ×2 (09:33→20:01)
[2018-09-13] MEDS: Ferrous Sulfate 325 MG Tab PO SCH (09:33)
[2018-09-13] MEDS: DAPTOmycin 500 MG in Sodium Chloride 0.9% 10 ML IVPUSH SCH (09:48)
[2018-09-13] MEDS: Citalopram 10 MG Tab PO SCH (09:48)
[2018-09-13] MEDS: Ascorbic Acid 500 MG Tab PO SCH (09:48)
[2018-09-13] MEDS: Sodium Chloride 0.9% 10 ML Syringe FLUSH PRN ×2 (18:36→19:37)
[2018-09-13] MEDS: Melatonin 3 MG Tab PO SCH (20:00)
[2018-09-13] MEDS: Insulin Glargine,Human Rec. Analog 100 Units/ML 3 ML Pen SUBCUT SCH (20:28)
[2018-09-14] MEDS: Acetaminophen 325 MG Tab PO SCH ×4 (02:43→20:40)
[2018-09-14] MEDS: Pantoprazole 40 MG Tab.CR PO SCH (05:06)
[2018-09-14] MEDS: Levothyroxine 75 MCG Tab PO SCH (05:06)
[2018-09-14] MEDS: Ondansetron 4 MG Tab.DIS PO PRN ×2 (09:56→17:24)
[2018-09-14] MEDS: oxyCODONE 5 MG Tab PO PRN (09:58)
[2018-09-14] MEDS: Insulin Lispro 100 Unit/ML 3 ML KwikPen SUBCUT SCH ×3 (09:59→17:46)
[2018-09-14] MEDS: Citalopram 10 MG Tab PO SCH (10:00)
[2018-09-14] MEDS: Ferrous Sulfate 325 MG Tab PO SCH (10:00)
[2018-09-14] MEDS: Thiamine 100 MG Tab PO SCH (10:01)
[2018-09-14] MEDS: carBAMazepine 200 MG Tab PO SCH ×2 (10:01→20:42)
[2018-09-14] MEDS: Cetirizine 10 MG Tab PO SCH (10:01)
[2018-09-14] MEDS: Magnesium Oxide 400 MG Tab PO SCH ×2 (10:01→20:42)
[2018-09-14] MEDS: Ascorbic Acid 500 MG Tab PO SCH (10:01)
[2018-09-14] MEDS: Atenolol 50 MG Tab PO SCH ×2 (10:01→20:43)
[2018-09-14] MEDS: Heparin Sodium 5,000 Units/ML Vial SUBCUT SCH ×2 (10:02→20:40)
[2018-09-14] MEDS: Sodium Chloride 0.9% 10 ML Syringe FLUSH PRN ×4 (11:16→22:53)
[2018-09-14] MEDS: Ketorolac 15 MG/ML SDV IVPUSH SCH ×3 (11:16→22:48)
[2018-09-14] MEDS: Betamethasone Dipropionate/Clotrimazole 0.05-1% Crm 45 GM Tube TOP SCH ×2 (11:19→20:39)
[2018-09-14] MEDS: Melatonin 3 MG Tab PO SCH (20:42)
[2018-09-14] MEDS: Insulin Glargine,Human Rec. Analog 100 Units/ML 3 ML Pen SUBCUT SCH (21:40)
[2018-09-15] MEDS: Acetaminophen 325 MG Tab PO SCH ×4 (01:51→21:09)
[2018-09-15] MEDS: Ketorolac 15 MG/ML SDV IVPUSH SCH ×4 (04:34→22:42)
[2018-09-15] MEDS: Sodium Chloride 0.9% 10 ML Syringe FLUSH PRN ×9 (04:38→22:45)
[2018-09-15] MEDS: Levothyroxine 75 MCG Tab PO SCH (06:02)
[2018-09-15] MEDS: Pantoprazole 40 MG Tab.CR PO SCH (06:03)
[2018-09-15] MEDS: Ondansetron 4 MG Tab.DIS PO PRN (08:22)
[2018-09-15] MEDS: Insulin Lispro 100 Unit/ML 3 ML KwikPen SUBCUT SCH ×3 (09:00→18:08)
[2018-09-15] MEDS: Ascorbic Acid 500 MG Tab PO SCH (09:17)
[2018-09-15] MEDS: Magnesium Oxide 400 MG Tab PO SCH ×2 (09:17→21:10)
[2018-09-15] MEDS: Thiamine 100 MG Tab PO SCH (09:17)
[2018-09-15] MEDS: Citalopram 10 MG Tab PO SCH (09:17)
[2018-09-15] MEDS: carBAMazepine 200 MG Tab PO SCH ×2 (09:17→21:10)
[2018-09-15] MEDS: Atenolol 50 MG Tab PO SCH ×2 (09:17→21:10)
[2018-09-15] MEDS: Ferrous Sulfate 325 MG Tab PO SCH (09:18)
[2018-09-15] MEDS: Cetirizine 10 MG Tab PO SCH (09:18)
[2018-09-15] MEDS: Betamethasone Dipropionate/Clotrimazole 0.05-1% Crm 45 GM Tube TOP SCH ×2 (09:18→21:09)
[2018-09-15] MEDS: Heparin Sodium 5,000 Units/ML Vial SUBCUT SCH ×2 (09:18→21:09)
[2018-09-15] MEDS: DAPTOmycin 500 MG in Sodium Chloride 0.9% 10 ML IVPUSH SCH (09:34)
[2018-09-15] MEDS: traMADol 50 MG Tab PO PRN (14:09)
[2018-09-15] MEDS: Melatonin 3 MG Tab PO SCH (21:10)
[2018-09-15] MEDS: Insulin Glargine,Human Rec. Analog 100 Units/ML 3 ML Pen SUBCUT SCH (21:22)
[2018-09-16] MEDS: Acetaminophen 325 MG Tab PO SCH ×4 (02:18→19:59)
[2018-09-16] MEDS: traMADol 50 MG Tab PO PRN ×3 (02:21→21:50)
[2018-09-16] MEDS: Ketorolac 15 MG/ML SDV IVPUSH SCH ×4 (04:15→22:18)
[2018-09-16] MEDS: Sodium Chloride 0.9% 10 ML Syringe FLUSH PRN ×8 (04:18→22:20)
[2018-09-16] MEDS: Levothyroxine 75 MCG Tab PO SCH (06:04)
[2018-09-16] MEDS: Pantoprazole 40 MG Tab.CR PO SCH (06:04)
[2018-09-16] MEDS: Insulin Lispro 100 Unit/ML 3 ML KwikPen SUBCUT SCH ×3 (09:43→18:22)
[2018-09-16] MEDS: Ondansetron 4 MG Tab.DIS PO PRN (09:47)
[2018-09-16] MEDS: Citalopram 10 MG Tab PO SCH (09:48)
[2018-09-16] MEDS: Magnesium Oxide 400 MG Tab PO SCH ×2 (09:48→20:00)
[2018-09-16] MEDS: Ferrous Sulfate 325 MG Tab PO SCH (09:48)
[2018-09-16] MEDS: Betamethasone Dipropionate/Clotrimazole 0.05-1% Crm 45 GM Tube TOP SCH ×2 (09:49→20:00)
[2018-09-16] MEDS: Ascorbic Acid 500 MG Tab PO SCH (09:49)
[2018-09-16] MEDS: Heparin Sodium 5,000 Units/ML Vial SUBCUT SCH ×2 (09:49→20:00)
[2018-09-16] MEDS: Cetirizine 10 MG Tab PO SCH (09:49)
[2018-09-16] MEDS: carBAMazepine 200 MG Tab PO SCH ×2 (09:49→20:01)
[2018-09-16] MEDS: Thiamine 100 MG Tab PO SCH (09:49)
[2018-09-16] MEDS: Atenolol 50 MG Tab PO SCH ×2 (09:52→20:01)
[2018-09-16] MEDS: Melatonin 3 MG Tab PO SCH (20:01)
[2018-09-16] MEDS: Insulin Glargine,Human Rec. Analog 100 Units/ML 3 ML Pen SUBCUT SCH (21:21)
[2018-09-17] MEDS: Acetaminophen 325 MG Tab PO SCH ×4 (02:09→20:28)
[2018-09-17] MEDS: Ketorolac 15 MG/ML SDV IVPUSH SCH ×4 (04:35→22:16)
[2018-09-17] MEDS: Sodium Chloride 0.9% 10 ML Syringe FLUSH PRN ×5 (04:39→22:17)
[2018-09-17] MEDS: Pantoprazole 40 MG Tab.CR PO SCH (05:57)
[2018-09-17] MEDS: Levothyroxine 75 MCG Tab PO SCH (05:57)
[2018-09-17] MEDS: traMADol 50 MG Tab PO PRN (07:41)
[2018-09-17] MEDS: Insulin Lispro 100 Unit/ML 3 ML KwikPen SUBCUT SCH ×3 (07:45→19:19)
[2018-09-17] MEDS: Ondansetron 4 MG Tab.DIS PO PRN (10:26)
[2018-09-17] MEDS: Betamethasone Dipropionate/Clotrimazole 0.05-1% Crm 45 GM Tube TOP SCH ×2 (10:32→20:30)
[2018-09-17] MEDS: Cetirizine 10 MG Tab PO SCH (10:43)
[2018-09-17] MEDS: carBAMazepine 200 MG Tab PO SCH ×2 (10:43→20:30)
[2018-09-17] MEDS: Atenolol 50 MG Tab PO SCH ×2 (10:43→20:30)
[2018-09-17] MEDS: Citalopram 10 MG Tab PO SCH (10:43)
[2018-09-17] MEDS: Magnesium Oxide 400 MG Tab PO SCH ×2 (10:44→20:30)
[2018-09-17] MEDS: Thiamine 100 MG Tab PO SCH (10:44)
[2018-09-17] MEDS: Ferrous Sulfate 325 MG Tab PO SCH (10:45)
[2018-09-17] MEDS: Ascorbic Acid 500 MG Tab PO SCH (10:45)
[2018-09-17] MEDS: Heparin Sodium 5,000 Units/ML Vial SUBCUT SCH ×2 (10:45→20:29)
[2018-09-17] MEDS: DAPTOmycin 500 MG in Sodium Chloride 0.9% 10 ML IVPUSH SCH (10:53)
[2018-09-17] MEDS: Melatonin 3 MG Tab PO SCH (20:30)
[2018-09-17] MEDS: Insulin Glargine,Human Rec. Analog 100 Units/ML 3 ML Pen SUBCUT SCH (20:38)
[2018-09-18] MEDS: Acetaminophen 325 MG Tab PO SCH ×4 (02:27→20:03)
[2018-09-18] MEDS: Sodium Chloride 0.9% 10 ML Syringe FLUSH PRN ×4 (04:50→22:35)
[2018-09-18] MEDS: Ketorolac 15 MG/ML SDV IVPUSH SCH ×4 (04:50→22:33)
[2018-09-18] MEDS: Levothyroxine 75 MCG Tab PO SCH (05:00)
[2018-09-18] MEDS: Pantoprazole 40 MG Tab.CR PO SCH (05:00)
[2018-09-18] MEDS: Betamethasone Dipropionate/Clotrimazole 0.05-1% Crm 45 GM Tube TOP SCH ×2 (10:00→20:11)
[2018-09-18] MEDS: Insulin Lispro 100 Unit/ML 3 ML KwikPen SUBCUT SCH ×3 (10:00→17:03)
[2018-09-18] MEDS: Magnesium Oxide 400 MG Tab PO SCH ×2 (10:27→20:13)
[2018-09-18] MEDS: carBAMazepine 200 MG Tab PO SCH ×2 (10:27→20:14)
[2018-09-18] MEDS: Ferrous Sulfate 325 MG Tab PO SCH (10:28)
[2018-09-18] MEDS: Citalopram 10 MG Tab PO SCH (10:28)
[2018-09-18] MEDS: Heparin Sodium 5,000 Units/ML Vial SUBCUT SCH ×2 (10:28→20:05)
[2018-09-18] MEDS: Thiamine 100 MG Tab PO SCH (10:28)
[2018-09-18] MEDS: Ascorbic Acid 500 MG Tab PO SCH (10:29)
[2018-09-18] MEDS: Cetirizine 10 MG Tab PO SCH (10:29)
[2018-09-18] MEDS: Atenolol 50 MG Tab PO SCH ×2 (10:29→20:14)
--- NOTE | 2018-09-18 10:41 | PCM.PN ---
- General Info Date of Service: 09/18/18 Subjective Update: Katlin has had problems with nausea, decreased appetite and lack of motivation. She further complains of pain on the left hip that goes down all the way to the ankle. She has a history of depression, currently on 10 mg of Celexa and also has a history of DVT and is on prophylactic doses of heparin. She denies shortness of breath, fever,chills has had on-and-off headache and generalized lethargy - Review of Systems Pulmonary: Reports: No Symptoms Cardiovascular: Reports: No Symptoms Gastrointestinal: Reports: Nausea. Denies: Vomiting Genitourinary: Reports: No Symptoms - Patient Data Vitals - Most Recent: Last Vital Signs Temp 97.5 F 09/17/18 07:30 Pulse 0 L 09/18/18 10:29 Resp 22 H 09/17/18 07:30 BP 0/0 L 09/18/18 10:29 Pulse Ox 96 09/17/18 07:30 Weight - Most Recent: 78.789 kg Lab Results Last 24 Hours: Laboratory Results - last 24 hr 09/17/18 Range/Units 20:34 POC Glucose 147 H (80-116) mg/dL Med Orders - Current: Current Medications Acetaminophen (Tylenol) 650 mg PO Q6H [facility] Last Admin: 09/18/18 08:10 Dose: 650 mg Ascorbic Acid (Vitamin C) 500 mg PO DAILY [facility] Last Admin: 09/18/18 10:29 Dose: 500 mg Atenolol (Tenormin) 50 mg PO BID [facility] Last Admin: 09/18/18 10:29 Dose: 50 mg Betamethasone/Clotrimazole (Lotrisone) 0 gm TOP BID [facility] Last Admin: 09/17/18 20:30 Dose: 1 applic Bisacodyl (Dulcolax) 10 mg RECTAL DAILY PRN PRN Reason: Constipation Bisacodyl (Dulcolax) 5 mg PO BID PRN PRN Reason: Constipation Carbamazepine (Tegretol Tab) 200 mg PO BID [facility] Last Admin: 09/18/18 10:27 Dose: 200 mg Cetirizine HCl (Zyrtec) 10 mg PO DAILY [facility] Last Admin: 09/18/18 10:29 Dose: 10 mg Ferrous Sulfate (Ferrous Sulfate) 325 mg PO DAILY [facility] Last Admin: 01/01/19 10:28 Dose: 325 mg Heparin Sodium (Porcine) (Heparin Sodium) 5,000 units SUBCUT Q12H [facility] Last Admin: 09/18/18 10:28 Dose: 5,000 units Daptomycin 500 mg/ Sodium (Chloride) 10 mls @ 300 mls/hr IVPUSH Q48H [facility] Stop: 10/17/18 23:59 Last Admin: 09/17/18 10:53 Dose: 300 mls/hr Ertapenem 0.5 gm/ Sodium (Chloride) 50 mls @ 100 mls/hr IV Q24H [facility] Stop: 10/17/18 23:59 Last Admin: 09/17/18 17:03 Dose: 100 mls/hr Sodium Chloride (Normal Saline) 250 mls @ 100 mls/hr IV ASDIRECTED [facility] Insulin Glargine (Lantus Solostar) 25 units SUBCUT BEDTIME [facility] Last Admin: 09/17/18 20:38 Dose: 25 units Insulin Human Lispro (Humalog) 5 unit SUBCUT TIDMEALS [facility] Last Admin: 09/18/18 10:00 Dose: Not Given Ketorolac Tromethamine (Toradol) 15 mg IVPUSH Q6H [facility] Stop: 09/19/18 10:34 Last Admin: 09/18/18 10:26 Dose: 15 mg Levothyroxine Sodium (Levothyroxine) 75 mcg PO QAM [facility] Last Admin: 09/18/18 05:00 Dose: 75 mcg Magnesium Hydroxide (Milk Of Magnesia) 30 ml PO BID PRN PRN Reason: Constipation Magnesium Oxide (Magnesium Oxide) 400 mg PO BID [facility] Last Admin: 09/18/18 10:27 Dose: 400 mg Mirtazapine (Remeron) 15 mg PO BEDTIME [facility] Multivitamins/Minerals/Vitamin C (Tab-A-Mary) 1 tab PO DAILY [facility] Ondansetron HCl (Zofran Odt) 4 mg PO Q6H PRN PRN Reason: Nausea/Vomiting Last Admin: 09/17/18 10:26 Dose: 4 mg Pantoprazole Sodium (Protonix) 40 mg PO DAILY@0600 [facility] Last Admin: 09/18/18 05:00 Dose: 40 mg Sodium Chloride ([place] Nasal [place]) 0 ml NASBOTH Q2H PRN PRN Reason: Congestion Sodium Chloride (Saline Flush) 20 ml FLUSH ASDIRECTED PRN PRN Reason: to keep vein open Last Admin: 09/18/18 04:50 Dose: 20 ml Thiamine HCl (Vitamin B-1) 100 mg PO DAILY [facility] Last Admin: 09/18/18 10:28 Dose: 100 mg Tramadol HCl (Ultram) 50 mg PO Q8H PRN PRN Reason: Breakthrough Pain Last Admin: 09/17/18 07:41 Dose: 50 mg Discontinued Medications Acetaminophen (Tylenol) 650 mg PO TID [facility] Last Admin: 09/12/18 13:32 Dose: 650 mg Citalopram Hydrobromide (Celexa) 10 mg PO DAILY [facility] Last Admin: 09/18/18 10:28 Dose: 10 mg Melatonin (Melatonin) 3 mg PO BEDTIME [facility] Last Admin: 09/17/18 20:30 Dose: 3 mg Ondansetron HCl (Zofran Odt) Confirm Administered Dose 4 mg .ROUTE .STK-MED ONE Stop: 09/13/18 08:48 Last Admin: 09/13/18 09:33 Dose: Not Given Oxycodone HCl (Oxycodone) 2.5 mg PO Q4H PRN PRN Reason: MODERATE PAIN Last Admin: 09/14/18 09:58 Dose: 2.5 mg - Exam General: Alert HEENT: Pupils Equal Neck: Supple Lungs: Clear to Auscultation Extremities: No Pedal Edema, Leg Pain - Problem List & Annotations (1) S/P hip replacement SNOMED Code(s): 210935570, 377590461, 640536351, 158412491 Code(s): Z96.649 - PRESENCE OF UNSPECIFIED ARTIFICIAL HIP JOINT Status: Acute Current Visit: Yes Qualifiers: Laterality: left Qualified Code(s): Z96.642 - Presence of left artificial hip joint (2) Blood loss, postoperative SNOMED Code(s): 063484381 Code(s): CSL6881 - Status: Acute Current Visit: No Qualifiers: Surgical complication system/body Area: circulatory system (3) Deep venous thrombosis SNOMED Code(s): 920984963 Code(s): I82.409 - ACUTE EMBOLISM AND THOMBOS UNSP DEEP VN UNSP LOWER EXTREMITY Status: Chronic Current Visit: No Qualifiers: DVT location: lower extremity Affected thrombotic vein of extremity: tibial Chronicity: acute Laterality: left Qualified Code(s): I82.442 - Acute embolism and thrombosis of left tibial vein Annotation/Comment:: Now with evidence of resolution of clot on US. This greatly reduces risk of subtherapeutic anticoagulation and PE. Discussed the case at length with Dr. Wallis on 08/27/18. Although IVC filter is still a possible option, this is is not a benign undertaking and at this point with resolution of distal DVT, I would not recommend it. Dr. Wallis to continue management of anticoagulation. (4) Diabetes type 2, controlled SNOMED Code(s): 83176583, 327301624 Code(s): E11.9 - TYPE 2 DIABETES MELLITUS WITHOUT COMPLICATIONS Status: Acute Current Visit: No Annotation/Comment:: Blood sugars have been well controlled to promote wound healing with all sugars under 200 since 08/17/2018. Continue long acting and short acting insulin. (5) GERD (gastroesophageal reflux disease) SNOMED Code(s): 335437644 Code(s): K21.9 - GASTRO-ESOPHAGEAL REFLUX DISEASE WITHOUT ESOPHAGITIS Status: Acute Current Visit: No (6) HTN (hypertension) SNOMED Code(s): 38094128 Code(s): I10 - ESSENTIAL (PRIMARY) HYPERTENSION Status: Acute Current Visit: No Qualifiers: Hypertension type: essential hypertension Qualified Code(s): I10 - Essential (primary) hypertension Annotation/Comment:: Continue home meds. (7) Mild cognitive impairment SNOMED Code(s): 720341423 Code(s): G31.84 - MILD COGNITIVE IMPAIRMENT, SO STATED Status: Acute Current Visit: No Annotation/Comment:: Alert and oriented. Follow. (8) Palliative care status SNOMED Code(s): 761370856 Code(s): Z51.5 - ENCOUNTER FOR PALLIATIVE CARE Status: Acute Current Visit: No (9) Seizure disorder SNOMED Code(s): 035276745 Code(s): G40.909 - EPILEPSY, UNSP, NOT INTRACTABLE, WITHOUT STATUS EPILEPTICUS Status: Acute Current Visit: No Annotation/Comment:: Avoid seizure inducing meds. - Problem List Review Problem List Initiated/Reviewed/Updated: Yes - My Orders Last 24 Hours: My Active Orders 09/18/18 10:33 RED BLOOD CELLS LP [BBK] Urgent TYPE AND SCREEN [BBK] Urgent Transfuse Red Blood Cells [COMM] Urgent 09/18/18 10:34 VL Duplex Lwr Ext Veins Ltd Lt [US] Routine 09/18/18 10:45 Multivitamins [Tab-A-Mary] 1 tab PO DAILY Sodium Chloride 0.9% [Normal Saline] 250 ml IV ASDIRECTED 09/18/18 21:00 Mirtazapine [Remeron] 15 mg PO BEDTIME 09/19/18 09:00 Citalopram [Celexa] 20 mg PO DAILY - Plan Plan:: I feel that her depression is NOT well controlled. I will increase the dose of Celexa, instead mirtazapine 15 mg nightly help with appetite and depression. Of ordered for an ultrasound of the lower extremity to make sure she has no recurrence of DVT. Also given 1 unit of PRBCs because hemoglobin is down to 7.3. We'll continue Toradol and Ultram for pain control.Encourage physical therapy.
[2018-09-18] MEDS ORDERED: Sodium Chloride 0.9% 250 ML IV SCH (10:45)
[2018-09-18] MEDS: Multivitamin Tab PO SCH (12:47)
[2018-09-18] MEDS: traMADol 50 MG Tab PO PRN (17:42)
[2018-09-18] MEDS: Insulin Glargine,Human Rec. Analog 100 Units/ML 3 ML Pen SUBCUT SCH (20:16)
[2018-09-18] MEDS: Mirtazapine 15 MG Tab PO SCH (20:22)
[2018-09-19] MEDS: Acetaminophen 325 MG Tab PO SCH ×4 (01:37→20:35)
[2018-09-19] MEDS: Ketorolac 15 MG/ML SDV IVPUSH SCH (04:23)
[2018-09-19] MEDS: Sodium Chloride 0.9% 10 ML Syringe FLUSH PRN ×3 (04:24→21:15)
[2018-09-19] MEDS: Levothyroxine 75 MCG Tab PO SCH (04:59)
[2018-09-19] MEDS: Pantoprazole 40 MG Tab.CR PO SCH (04:59)
[2018-09-19] MEDS: Insulin Lispro 100 Unit/ML 3 ML KwikPen SUBCUT SCH ×3 (09:07→18:41)
[2018-09-19] MEDS: Ferrous Sulfate 325 MG Tab PO SCH (09:09)
[2018-09-19] MEDS: Heparin Sodium 5,000 Units/ML Vial SUBCUT SCH ×2 (09:10→21:14)
[2018-09-19] MEDS: Magnesium Oxide 400 MG Tab PO SCH ×2 (09:10→20:41)
[2018-09-19] MEDS: carBAMazepine 200 MG Tab PO SCH ×2 (09:11→20:42)
[2018-09-19] MEDS: Atenolol 50 MG Tab PO SCH ×2 (09:11→20:43)
[2018-09-19] MEDS: Cetirizine 10 MG Tab PO SCH (09:12)
[2018-09-19] MEDS: Thiamine 100 MG Tab PO SCH (09:12)
[2018-09-19] MEDS: Ascorbic Acid 500 MG Tab PO SCH (09:12)
[2018-09-19] MEDS: Multivitamin Tab PO SCH (09:14)
[2018-09-19] MEDS: Citalopram 20 MG Tab PO SCH (09:14)
[2018-09-19] MEDS: DAPTOmycin 500 MG in Sodium Chloride 0.9% 10 ML IVPUSH SCH (09:15)
--- NOTE | 2018-09-19 10:37 | US ---
INDICATION: Left leg pain, question DVT, history of previous DVT. DUPLEX ULTRASOUND, LEFT LOWER EXTREMITY VEINS: Utilizing 2-D real time, duplex Doppler spectral analysis and color flow imaging, examination of the left lower extremity veins was obtained including common femoral, femoral, posterior tibial , popliteal, anterior tibial and greater saphenous to the knee. At the ankle posteriorly there appears to be a branch with a partial deep venous thrombosis of questionable age. No tenderness was ellicited while scanning over that area. Otherwise no evidence of deep venous thrombosis was identified and the greater saphenous was also unremarkable to the knee. The patient was unable to cooperate with valvular competence. IMPRESSION: Possible very minimal, and possible chronic deep venous thrombosis along a very short segment of a very small vein at the posterior lateral left ankle. This likely is a branch of the posterior tibial vein and may represent a chronic process and is very minimal in scope. No other evidence of deep venous thrombosis was identified. MTDD
[2018-09-19] MEDS: traMADol 50 MG Tab PO PRN ×2 (11:28→23:54)
[2018-09-19] MEDS: Betamethasone Dipropionate/Clotrimazole 0.05-1% Crm 45 GM Tube TOP SCH ×2 (12:17→20:41)
[2018-09-19] MEDS: Insulin Glargine,Human Rec. Analog 100 Units/ML 3 ML Pen SUBCUT SCH (20:37)
[2018-09-19] MEDS: Mirtazapine 15 MG Tab PO SCH (20:42)
[2018-09-20] MEDS: Acetaminophen 325 MG Tab PO SCH ×4 (01:28→20:13)
[2018-09-20] MEDS: Pantoprazole 40 MG Tab.CR PO SCH (05:49)
[2018-09-20] MEDS: Levothyroxine 75 MCG Tab PO SCH (05:49)
[2018-09-20] MEDS: Betamethasone Dipropionate/Clotrimazole 0.05-1% Crm 45 GM Tube TOP SCH ×2 (08:19→20:21)
[2018-09-20] MEDS: Thiamine 100 MG Tab PO SCH (08:20)
[2018-09-20] MEDS: Atenolol 50 MG Tab PO SCH ×2 (08:20→20:15)
[2018-09-20] MEDS: Magnesium Oxide 400 MG Tab PO SCH ×2 (08:20→20:14)
[2018-09-20] MEDS: Heparin Sodium 5,000 Units/ML Vial SUBCUT SCH ×2 (08:20→20:14)
[2018-09-20] MEDS: Ascorbic Acid 500 MG Tab PO SCH (08:20)
[2018-09-20] MEDS: Cetirizine 10 MG Tab PO SCH (08:21)
[2018-09-20] MEDS: Multivitamin Tab PO SCH (08:21)
[2018-09-20] MEDS: Ferrous Sulfate 325 MG Tab PO SCH (08:21)
[2018-09-20] MEDS: Citalopram 20 MG Tab PO SCH (08:21)
[2018-09-20] MEDS: traMADol 50 MG Tab PO PRN (08:48)
[2018-09-20] MEDS: Insulin Lispro 100 Unit/ML 3 ML KwikPen SUBCUT SCH ×3 (08:53→17:49)
[2018-09-20] MEDS: carBAMazepine 200 MG Tab PO SCH ×2 (11:44→20:15)
[2018-09-20] MEDS: Sodium Chloride 0.9% 10 ML Syringe FLUSH PRN ×2 (17:53→18:30)
[2018-09-20] MEDS: Mirtazapine 15 MG Tab PO SCH (20:14)
[2018-09-20] MEDS: Insulin Glargine,Human Rec. Analog 100 Units/ML 3 ML Pen SUBCUT SCH (20:19)
[2018-09-21] MEDS: Acetaminophen 325 MG Tab PO SCH ×4 (02:22→20:00)
[2018-09-21] MEDS: traMADol 50 MG Tab PO PRN (02:23)
[2018-09-21] MEDS: Levothyroxine 75 MCG Tab PO SCH (05:35)
[2018-09-21] MEDS: Pantoprazole 40 MG Tab.CR PO SCH (05:35)
[2018-09-21] MEDS: Citalopram 20 MG Tab PO SCH (08:16)
[2018-09-21] MEDS: Heparin Sodium 5,000 Units/ML Vial SUBCUT SCH ×2 (08:16→20:01)
[2018-09-21] MEDS: Ferrous Sulfate 325 MG Tab PO SCH (08:16)
[2018-09-21] MEDS: Betamethasone Dipropionate/Clotrimazole 0.05-1% Crm 45 GM Tube TOP SCH ×2 (08:17→20:01)
[2018-09-21] MEDS: Magnesium Oxide 400 MG Tab PO SCH ×2 (08:17→20:02)
[2018-09-21] MEDS: carBAMazepine 200 MG Tab PO SCH ×2 (08:17→20:02)
[2018-09-21] MEDS: Atenolol 50 MG Tab PO SCH ×2 (08:17→20:03)
[2018-09-21] MEDS: Multivitamin Tab PO SCH (08:17)
[2018-09-21] MEDS: Cetirizine 10 MG Tab PO SCH ×2 (08:18→09:18)
[2018-09-21] MEDS: Ascorbic Acid 500 MG Tab PO SCH (08:18)
[2018-09-21] MEDS: Thiamine 100 MG Tab PO SCH (08:18)
[2018-09-21] MEDS: DAPTOmycin 500 MG in Sodium Chloride 0.9% 10 ML IVPUSH SCH (09:02)
[2018-09-21] MEDS: Sodium Chloride 0.9% 10 ML Syringe FLUSH PRN ×4 (09:02→18:45)
[2018-09-21] MEDS: Insulin Lispro 100 Unit/ML 3 ML KwikPen SUBCUT SCH ×3 (10:04→18:10)
--- NOTE | 2018-09-21 10:07 | PCM.PN ---
- General Info Date of Service: 09/21/18 Subjective Update: Patient is very drowsy and difficult to wake up this morning. Per nursing and physical therapy staff, she has been having a fluctuating course of mentation that has changed significantly over the past few days. She has been also less tolerant of her physical therapy and infact has been very hesitant with weight bearing. She refused to get out of bed yesterday. On my examination this morning the patient is alert to voice but did not open her eyes. She does not answer questions appropriately. - Review of Systems HEENT: Reports: Glasses Systems Review Comment:: unable to obtain - Patient Data Vitals - Most Recent: Last Vital Signs Temp 97.6 F 09/20/18 08:00 Pulse 54 L 09/21/18 08:17 Resp 14 09/20/18 08:00 BP 170/62 H 09/21/18 08:17 Pulse Ox 94 L 09/20/18 08:00 Weight - Most Recent: 171 lb 6.4 oz Lab Results Last 24 Hours: Laboratory Results - last 24 hr 09/20/18 09/20/18 09/20/18 Range/Units 11:50 16:46 18:25 Creatinine 1.8 H (0.55-1.02) mg/dL Est Cr Clr Drug Dosing 20.29 mL/min Estimated GFR (MDRD) 28 L (>60) POC Glucose 178 H 116 (80-116) mg/dL 09/21/18 Range/Units 05:26 Creatinine (0.55-1.02) mg/dL Est Cr Clr Drug Dosing mL/min Estimated GFR (MDRD) (>60) POC Glucose 128 H (80-116) mg/dL Med Orders - Current: Current Medications Acetaminophen (Tylenol) 650 mg PO Q6H [facility] Last Admin: 09/21/18 08:15 Dose: 650 mg Ascorbic Acid (Vitamin C) 500 mg PO DAILY [facility] Last Admin: 09/21/18 08:18 Dose: 500 mg Atenolol (Tenormin) 50 mg PO BID [facility] Last Admin: 09/21/18 08:17 Dose: 50 mg Betamethasone/Clotrimazole (Lotrisone) 0 gm TOP BID [facility] Last Admin: 09/21/18 08:17 Dose: 1 applic Bisacodyl (Dulcolax) 10 mg RECTAL DAILY PRN PRN Reason: Constipation Bisacodyl (Dulcolax) 5 mg PO BID PRN PRN Reason: Constipation Carbamazepine (Tegretol Tab) 200 mg PO BID [facility] Last Admin: 09/21/18 08:17 Dose: 200 mg Citalopram Hydrobromide (Celexa) 20 mg PO DAILY [facility] Last Admin: 09/21/18 08:16 Dose: 20 mg Ferrous Sulfate (Ferrous Sulfate) 325 mg PO DAILY [facility] Last Admin: 09/21/18 08:16 Dose: 325 mg Heparin Sodium (Porcine) (Heparin Sodium) 5,000 units SUBCUT Q12H [facility] Last Admin: 09/21/18 08:16 Dose: 5,000 units Daptomycin 500 mg/ Sodium (Chloride) 10 mls @ 300 mls/hr IVPUSH Q48H [facility] Stop: 10/17/18 23:59 Last Admin: 09/21/18 09:02 Dose: 300 mls/hr Ertapenem 0.5 gm/ Sodium (Chloride) 50 mls @ 100 mls/hr IV Q24H [facility] Stop: 10/17/18 23:59 Last Admin: 09/20/18 17:48 Dose: 100 mls/hr Sodium Chloride (Normal Saline) 250 mls @ 100 mls/hr IV ASDIRECTED [facility] Insulin Glargine (Lantus Solostar) 25 units SUBCUT BEDTIME [facility] Last Admin: 09/20/18 20:19 Dose: 25 units Insulin Human Lispro (Humalog) 5 unit SUBCUT TIDMEALS [facility] Last Admin: 09/20/18 17:49 Dose: 5 units Levothyroxine Sodium (Levothyroxine) 75 mcg PO QAM [facility] Last Admin: 09/21/18 05:35 Dose: 75 mcg Magnesium Hydroxide (Milk Of Magnesia) 30 ml PO BID PRN PRN Reason: Constipation Magnesium Oxide (Magnesium Oxide) 400 mg PO BID [facility] Last Admin: 09/21/18 08:17 Dose: 400 mg Multivitamins/Minerals/Vitamin C (Tab-A-Mary) 1 tab PO DAILY [facility] Last Admin: 09/21/18 08:17 Dose: 1 tab Ondansetron HCl (Zofran Odt) 4 mg PO Q6H PRN PRN Reason: Nausea/Vomiting Last Admin: 09/17/18 10:26 Dose: 4 mg Pantoprazole Sodium (Protonix) 40 mg PO DAILY@0600 [facility] Last Admin: 09/21/18 05:35 Dose: 40 mg Sodium Chloride ([place] Nasal [place]) 0 ml NASBOTH Q2H PRN PRN Reason: Congestion Sodium Chloride (Saline Flush) 20 ml FLUSH ASDIRECTED PRN PRN Reason: to keep vein open Last Admin: 09/21/18 09:02 Dose: 20 ml Thiamine HCl (Vitamin B-1) 100 mg PO DAILY [facility] Last Admin: 09/21/18 08:18 Dose: 100 mg Tramadol HCl (Ultram) 50 mg PO Q8H PRN PRN Reason: Breakthrough Pain Last Admin: 09/21/18 02:23 Dose: 50 mg Discontinued Medications Acetaminophen (Tylenol) 650 mg PO TID [facility] Last Admin: 09/12/18 13:32 Dose: 650 mg Cetirizine HCl (Zyrtec) 10 mg PO DAILY [facility] Last Admin: 09/21/18 09:18 Dose: Not Given Citalopram Hydrobromide (Celexa) 10 mg PO DAILY [facility] Last Admin: 09/18/18 10:28 Dose: 10 mg Ketorolac Tromethamine (Toradol) 15 mg IVPUSH Q6H [facility] Stop: 09/19/18 10:34 Last Admin: 09/19/18 04:23 Dose: 15 mg Melatonin (Melatonin) 3 mg PO BEDTIME [facility] Last Admin: 09/17/18 20:30 Dose: 3 mg Mirtazapine (Remeron) 15 mg PO BEDTIME [facility] Last Admin: 09/20/18 20:14 Dose: 15 mg Ondansetron HCl (Zofran Odt) Confirm Administered Dose 4 mg .ROUTE .STK-MED ONE Stop: 09/13/18 08:48 Last Admin: 09/13/18 09:33 Dose: Not Given Oxycodone HCl (Oxycodone) 2.5 mg PO Q4H PRN PRN Reason: MODERATE PAIN Last Admin: 09/14/18 09:58 Dose: 2.5 mg - Exam General: Alert, No Acute Distress, Lethargic HEENT: Pupils Equal, Pupils Reactive Lungs: Clear to Auscultation, Normal Respiratory Effort Cardiovascular: Regular Rate, Regular Rhythm, No Murmurs GI/Abdominal Exam: Normal Bowel Sounds, Soft, Non-Tender Extremities: Normal Inspection, No Pedal Edema Wound/Incisions: Healing Well, Dressing Dry and Intact, No Drainage - Problem List & Annotations (1) Lethargy SNOMED Code(s): 961310595 Code(s): R53.83 - OTHER FATIGUE Status: Acute Current Visit: Yes (2) S/P hip replacement SNOMED Code(s): 360329955, 832488221, 914090151, 186030451 Code(s): Z96.649 - PRESENCE OF UNSPECIFIED ARTIFICIAL HIP JOINT Status: Acute Current Visit: Yes Qualifiers: Laterality: left Qualified Code(s): Z96.642 - Presence of left artificial hip joint (3) AMPARO (acute kidney injury) SNOMED Code(s): 20250288 Code(s): N17.9 - ACUTE KIDNEY FAILURE, UNSPECIFIED Status: Acute Current Visit: Yes (4) Delirium SNOMED Code(s): 8373689 Code(s): R41.0 - DISORIENTATION, UNSPECIFIED Status: Acute Current Visit : Yes (5) GERD (gastroesophageal reflux disease) SNOMED Code(s): 866146476 Code(s): K21.9 - GASTRO-ESOPHAGEAL REFLUX DISEASE WITHOUT ESOPHAGITIS Status: Acute Current Visit: Yes (6) HTN (hypertension) SNOMED Code(s): 47548563 Code(s): I10 - ESSENTIAL (PRIMARY) HYPERTENSION Status: Acute Current Visit: Yes Qualifiers: Hypertension type: essential hypertension Qualified Code(s): I10 - Essential (primary) hypertension Annotation/Comment:: Continue home meds. (7) Hypothyroidism SNOMED Code(s): 14312489 Code(s): E03.9 - HYPOTHYROIDISM, UNSPECIFIED Status: Acute Current Visit : Yes Qualifiers: Hypothyroidism type: unspecified Qualified Code(s): E03.9 - Hypothyroidism , unspecified Annotation/Comment:: In normal range. Continue home meds. (8) Palliative care status SNOMED Code(s): 292045525 Code(s): Z51.5 - ENCOUNTER FOR PALLIATIVE CARE Status: Acute Current Visit: Yes (9) Seizure disorder SNOMED Code(s): 049097932 Code(s): G40.909 - EPILEPSY, UNSP, NOT INTRACTABLE, WITHOUT STATUS EPILEPTICUS Status: Acute Current Visit: Yes Annotation/Comment:: Avoid seizure inducing meds. - Problem List Review Problem List Initiated/Reviewed/Updated: Yes - My Orders Last 24 Hours: My Active Orders 09/21/18 09:19 CBC WITH AUTO DIFF [HEME] Routine COMPREHENSIVE METABOLIC PN,CMP [CHEM] Routine 09/21/18 09:20 TSH ULTRASENSITIVE [CHEM] Routine UA W/MICROSCOPIC [URIN] Routine 09/21/18 09:21 CRP [C-REACTIVE PROTEIN] [CHEM] Routine 09/21/18 09:22 CARBAMAZEPINE(TEGRETOL),S Routine - Plan Plan:: Patient does show evidence of fluctuating mentation likely secondary to delirium from ?possible polypharmacy or metabolic disturbance. We will check CBC , CMP, TSH, CRP, urinalysis and a Tegratol level today. Unlikely an infectious cause as the patient has been afebrile and her incision is without drainage/ erythema and no evidence of a hematoma. If her labs come back within normal limits can consider infectious workup. We have made changes to her medications as well including discontinuing her Mertazipine and Zyrtec. The patient did have 1 unit of blood transfused a few days ago. She is to continue her IV antibiotics until the end of September. Continue to work with PT as her mentation improves.
[2018-09-21] MEDS: Lisinopril 10 MG Tab PO SCH (11:22)
[2018-09-21] MEDS ORDERED: Morphine 10 MG/ML Syringe SUBCUT PRN (14:55)
[2018-09-21] MEDS: Insulin Glargine,Human Rec. Analog 100 Units/ML 3 ML Pen SUBCUT SCH (20:06)
[2018-09-22] MEDS: Acetaminophen 325 MG Tab PO SCH ×4 (02:08→20:59)
[2018-09-22] MEDS: Pantoprazole 40 MG Tab.CR PO SCH (05:49)
[2018-09-22] MEDS: Levothyroxine 75 MCG Tab PO SCH (05:49)
[2018-09-22] MEDS: Citalopram 20 MG Tab PO SCH (08:59)
[2018-09-22] MEDS: Ascorbic Acid 500 MG Tab PO SCH (08:59)
[2018-09-22] MEDS: Magnesium Oxide 400 MG Tab PO SCH ×2 (09:00→20:58)
[2018-09-22] MEDS: Ferrous Sulfate 325 MG Tab PO SCH (09:02)
[2018-09-22] MEDS: Heparin Sodium 5,000 Units/ML Vial SUBCUT SCH ×2 (09:02→20:59)
[2018-09-22] MEDS: Thiamine 100 MG Tab PO SCH (09:02)
[2018-09-22] MEDS: Multivitamin Tab PO SCH (09:05)
[2018-09-22] MEDS: carBAMazepine 200 MG Tab PO SCH ×2 (09:05→20:58)
[2018-09-22] MEDS: Betamethasone Dipropionate/Clotrimazole 0.05-1% Crm 45 GM Tube TOP SCH ×2 (09:06→20:59)
[2018-09-22] MEDS: Atenolol 50 MG Tab PO SCH (09:08)
[2018-09-22] MEDS: Lisinopril 10 MG Tab PO SCH (09:08)
[2018-09-22] MEDS: traMADol 50 MG Tab PO PRN (09:13)
[2018-09-22] MEDS: Sodium Chloride 0.9% 10 ML Syringe FLUSH PRN (19:04)
[2018-09-22] MEDS: Insulin Glargine,Human Rec. Analog 100 Units/ML 3 ML Pen SUBCUT SCH (21:00)
[2018-09-23] MEDS: Acetaminophen 325 MG Tab PO SCH ×4 (02:28→20:36)
[2018-09-23] MEDS: Levothyroxine 75 MCG Tab PO SCH (07:00)
[2018-09-23] MEDS: Pantoprazole 40 MG Tab.CR PO SCH (07:00)
[2018-09-23] MEDS: traMADol 50 MG Tab PO PRN (08:17)
[2018-09-23] MEDS: Citalopram 20 MG Tab PO SCH (08:22)
[2018-09-23] MEDS: Ferrous Sulfate 325 MG Tab PO SCH (08:22)
[2018-09-23] MEDS: Ascorbic Acid 500 MG Tab PO SCH (08:22)
[2018-09-23] MEDS: Thiamine 100 MG Tab PO SCH (08:22)
[2018-09-23] MEDS: Magnesium Oxide 400 MG Tab PO SCH ×2 (08:23→20:37)
[2018-09-23] MEDS: Heparin Sodium 5,000 Units/ML Vial SUBCUT SCH ×2 (08:23→20:36)
[2018-09-23] MEDS: Lisinopril 10 MG Tab PO SCH (08:24)
[2018-09-23] MEDS: Atenolol 50 MG Tab PO SCH (08:25)
[2018-09-23] MEDS: carBAMazepine 200 MG Tab PO SCH ×2 (08:25→20:38)
[2018-09-23] MEDS: Multivitamin Tab PO SCH (08:26)
[2018-09-23] MEDS: Sodium Chloride 0.9% 10 ML Syringe FLUSH PRN ×4 (08:44→19:28)
[2018-09-23] MEDS: DAPTOmycin 500 MG in Sodium Chloride 0.9% 10 ML IVPUSH SCH (08:46)
[2018-09-23] MEDS: Betamethasone Dipropionate/Clotrimazole 0.05-1% Crm 45 GM Tube TOP SCH ×2 (09:30→20:37)
[2018-09-23] MEDS: Insulin Glargine,Human Rec. Analog 100 Units/ML 3 ML Pen SUBCUT SCH (20:37)
[2018-09-24] MEDS: Acetaminophen 325 MG Tab PO SCH ×4 (02:42→20:15)
[2018-09-24] MEDS: traMADol 50 MG Tab PO PRN ×2 (04:57→17:06)
[2018-09-24] MEDS: Pantoprazole 40 MG Tab.CR PO SCH (05:04)
[2018-09-24] MEDS: Levothyroxine 75 MCG Tab PO SCH (05:04)
[2018-09-24] MEDS: Ferrous Sulfate 325 MG Tab PO SCH (08:40)
[2018-09-24] MEDS: Betamethasone Dipropionate/Clotrimazole 0.05-1% Crm 45 GM Tube TOP SCH ×2 (08:40→20:16)
[2018-09-24] MEDS: Citalopram 20 MG Tab PO SCH (08:40)
[2018-09-24] MEDS: Magnesium Oxide 400 MG Tab PO SCH (08:41)
[2018-09-24] MEDS: Lisinopril 10 MG Tab PO SCH (08:41)
[2018-09-24] MEDS: Multivitamin Tab PO SCH (08:41)
[2018-09-24] MEDS: Ascorbic Acid 500 MG Tab PO SCH (08:41)
[2018-09-24] MEDS: carBAMazepine 200 MG Tab PO SCH (08:41)
[2018-09-24] MEDS: Thiamine 100 MG Tab PO SCH (08:42)
[2018-09-24] MEDS: Atenolol 50 MG Tab PO SCH (08:42)
--- NOTE | 2018-09-24 09:13 | CR ---
INDICATION: Patient sustained fall in room status post left hip arthroplasty. PELVIS WITH LEFT HIP: Frontal views of the pelvis and left hip and lateral views x2 of the left hip were obtained 09/21/18 and compared with 08/17/18 revealing revision of a complete hip arthroplasty on the left which appears to be in good position and alignment, without a definite complicating process--no definite new acute fracture or dislocation was seen. Degenerative changes are again noted at the left sacroiliac joint and at the right sacroiliac joint to a lesser extent. A total hip arthroplasty is noted on the right also which appears to be in good position and alignment without evidence of a complicating process. On the left there is methyl methacrylate extending from the arthroplasty site of the left hip. IMPRESSION: No acute fracture or dislocation is noted--satisfactory appearance post bilateral hip arthroplasties. Report called to Dr. Paul at 1655 hours. [facility]
[2018-09-24] MEDS: Heparin Sodium 5,000 Units/ML Vial SUBCUT SCH ×2 (10:07→20:16)
--- NOTE | 2018-09-24 11:38 | PN ---
DATE SEEN: 09/24/2018 HISTORY: Katlin is a 72-year-old woman who had left total hip arthroplasty back in June. She subsequently had a decline in overall condition and evidence of infection. Investigation reveals she had an infected prosthesis. She was sent to [place] and underwent a total hip revision by Dr. Byrnes on 09/05/2018. She had a turbulent postop course with extensive delirium and lethargy. Medications were decreased and she was discharged to [facility] swing bed on 09/12/2018. Her initial physical therapy evaluation upon arrival showed that she was able to get up and weight bear and walk with assistance. Her level of function has steadily declined since that and she has gotten progressively more weak, lethargic, and unable to complete physical therapy. Evaluation on 08/21/2018 on exam showed the lethargy and discomfort on hip motion on the left. Laboratory at that time revealed a white count of 7300, hemoglobin 10.3, creatinine 1.8, and a CRP of 12.0, which was an improvement from CRP prior to her hip revision. Carbamazepine level returned at 10.7. Medications were discontinued including her Zyrtec and mirtazapine. Her IV antibiotics were continued and attempts were made to minimize pain medication use due to her lethargy. In spite of these measures over the weekend, she has continued to remain quite lethargic and unable to complete her physical therapy. She had 2 falls over the weekend and repeat x-ray of her left hip showed good position of the fracture repair. Katlin is examined this morning in her bed. She states she does not feel well because she is too tired. She denies any specific pain while resting. PHYSICAL EXAMINATION: VITAL SIGNS: Blood pressure 146/67, pulse 62 and regular, respirations 14, temperature 97.6, O2 saturation 94% on room air. SKIN: Shows no rash. HEENT: Showed her pupils to be equal and reactive. Mouth is dry. LUNGS: Clear bilaterally. HEART: Regular without murmur or gallop. ABDOMEN: Normal bowel sounds. Soft and nontender. EXTREMITIES: Showed trace edema at the feet. NEUROLOGIC: Revealed motor exam to be symmetric in the upper extremities. She moved the right lower extremity normally but winced with pain on any movement of left lower extremity. LABORATORY DATA: White count 7000, hemoglobin 9.6. Blood gases showed a pH of 7.42, pO2 of 82, CO2 of 35. Electrolytes normal. BUN 31, creatinine 1.7. CK 469. CRP 15.7. ASSESSMENT: Progressive lethargy, weakness, and poor recuperation post major hip revision. PLAN: Because of the lethargy, we will do a MRI of her brain today. The rising CRP cause a concern for continued infection. We will follow up after MRI is complete. /[id number] ELIE/GASTON
[2018-09-24] MEDS: carBAMazepine 100 MG Tab.Chew PO SCH ×2 (13:40→20:16)
[2018-09-24] MEDS: Sodium Chloride 0.9% 10 ML Syringe FLUSH PRN ×2 (17:48→18:26)
[2018-09-24] MEDS ORDERED: Insulin Glargine,Human Rec. Analog 100 Units/ML 3 ML Pen SUBCUT SCH (21:00)
[2018-09-25] MEDS: Acetaminophen 325 MG Tab PO SCH ×2 (01:52→08:10)
[2018-09-25] MEDS: traMADol 50 MG Tab PO PRN (04:52)
[2018-09-25] MEDS: Levothyroxine 75 MCG Tab PO SCH (05:12)
[2018-09-25 08:15] VITALS: BP 143/69
[2018-09-25] MEDS: Ascorbic Acid 500 MG Tab PO SCH (08:15)
[2018-09-25] MEDS: Ferrous Sulfate 325 MG Tab PO SCH (08:15)
[2018-09-25] MEDS: Lisinopril 10 MG Tab PO SCH (08:15)
[2018-09-25] MEDS: carBAMazepine 100 MG Tab.Chew PO SCH (08:15)
[2018-09-25] MEDS: DAPTOmycin 500 MG in Sodium Chloride 0.9% 10 ML IVPUSH SCH (09:17)
[2018-09-25] MEDS: Sodium Chloride 0.9% 10 ML Syringe FLUSH PRN (09:18)
[2018-09-25] MEDS: Heparin Sodium 5,000 Units/ML Vial SUBCUT SCH (09:18)
--- NOTE | 2018-09-25 10:29 | DISCH ---
DISCHARGE DATE: 09/25/2018 DISCHARGE DIAGNOSES: 1. Infected left hip prosthesis. 2. Delirium. 3. Chronic kidney disease, stage 3. 4. Diabetes mellitus, type 2. 5. Essential hypertension. 6. Seizure disorder, longstanding. 7. Mild cognitive deficits. HISTORY: Ms. Stiles is a 72-year-old woman who underwent a left total hip arthroplasty by Dr. Wallis at [facility] in [place] in June of 2018. She had a prolonged postop course and eventually was found to have a prosthetic joint infection. She was transferred to [facility] and on about the 06 of September underwent a left total hip revision by Dr. Byrnes. Her postoperative course was somewhat stormy with excessive lethargy. Her pain medications were decreased and she seemed to be alert and adequate for discharge. She was admitted to swing bed for further recuperation at [facility] on 09/12/2018. At the time of arrival, she was able to get up and walk with assistance and complete her therapy satisfactorily. She continued her previous medications including the long-term daptomycin and ertapenem. The patient slowly became more fatigued, less able to complete therapy. She had periods of confusion with significant lethargy and seemingly slowly increasing pain in the hip, such that she was no longer able to complete her therapy both due to lethargy and due to increasing hip pain. She had 2 falls after she unhooked her monitor and got up on her own. A repeat x-ray of the hip showed no change in position of her hip revision and no obvious fractures. MRI of the head was accomplished and was unremarkable. Laboratory data included maintenance of a normal white count of 7000, normal blood gases, normal electrolytes, creatinine of 1.7, blood sugars that ranged from the 75 to 160s, and a CRP that slowly nomi from 9 on 09/17/2018 to 12 on 09/21/2018 to 15.7 on 09/24/2018. Consultation was held with Dr. Wick from the hospital service at [facility] in [place] and she agreed to accept Katlin in transfer for further investigation with the largest suspicion being a smoldering hip infection that has not been suppressed with her current antibiotics. The patient will be transferred to [facility] by ambulance. MEDICATIONS ON DISCHARGE: As follows: 1. Tramadol 50 mg every 8 hours p.r.n. pain. 2. Lisinopril 10 mg daily. 3. Levothyroxine 75 mcg daily. 4. Lantus 18 units subcu at bedtime. 5. Heparin 5000 units subcu every 12 hours. 6. Iron sulfate 325 mg daily. 7. Ertapenem 500 mg IV every 24 hours. 8. Daptomycin 500 mg IV every 48 hours. 9. Tegretol 100 mg p.o. t.i.d. 10.Dulcolax 5 mg b.i.d. p.r.n. 11.Tylenol p.r.n. 12.Vitamin C 500 mg daily. DISCHARGE INSTRUCTIONS: We will anticipate likely return to swing bed once her acute hospital evaluation is complete. Palliative care measures have been maintained also for Katlin during the swing bed stay to address her underlying pain, poor mobility. /[id number] ELIE/GASTON MTDD
--- NOTE | 2018-09-25 10:59 | DISCH ---
DISCHARGE DATE: 09/25/2018 ADDENDUM: Please add to her diagnoses, seizure disorder longstanding and mild cognitive deficits. /[id number] ELIE/[place]STON
[2018-09-25] MEDS ORDERED: Insulin Glargine,Human Rec. Analog 100 Units/ML 3 ML Pen SUBCUT SCH (21:00)
== END 2018-09-25 12:00 | DRG 949 ==
LOC: FB.MS 09-12 12:10
PROVIDERS: ADMIT Family Medicine; ATTEND Family Medicine
PROC: 30233N1 Transfusion of Nonautologous Red Blood Cells into Peripheral Vein, Percutaneous Approach (ICD-10-PCS; principal; 2018-09-19)
DX: T84.52XD Infection and inflammatory reaction due to internal left hip prosthesis, subsequent encounter (principal); I82.442 Acute embolism and thrombosis of left tibial vein; N17.9 Acute kidney failure, unspecified; Z51.5 Encounter for palliative care; Z66 Do not resuscitate; Z79.2 Long term (current) use of antibiotics; M16.12 Unilateral primary osteoarthritis, left hip; D50.0 Iron deficiency anemia secondary to blood loss (chronic); I10 Essential (primary) hypertension; G31.84 Mild cognitive impairment of uncertain or unknown etiology; E11.42 Type 2 diabetes mellitus with diabetic polyneuropathy; G40.909 Epilepsy, unspecified, not intractable, without status epilepticus; F32.9 Major depressive disorder, single episode, unspecified; K21.9 Gastro-esophageal reflux disease without esophagitis; G47.30 Sleep apnea, unspecified; Z99.89 Dependence on other enabling machines and devices; E78.00 Pure hypercholesterolemia, unspecified; H91.90 Unspecified hearing loss, unspecified ear; Z85.42 Personal history of malignant neoplasm of other parts of uterus; M79.605 Pain in left leg; R79.82 Elevated C-reactive protein (CRP); E03.9 Hypothyroidism, unspecified; M06.9 Rheumatoid arthritis, unspecified; M19.90 Unspecified osteoarthritis, unspecified site; M54.9 Dorsalgia, unspecified; G89.29 Other chronic pain; N39.44 Nocturnal enuresis; Z96.643 Presence of artificial hip joint, bilateral; Z79.4 Long term (current) use of insulin; Z88.5 Allergy status to narcotic agent; Z88.0 Allergy status to penicillin; Z98.890 Other specified postprocedural states; W19.XXXA Unspecified fall, initial encounter; Y92.239 Unspecified place in hospital as the place of occurrence of the external cause; H40.9 Unspecified glaucoma; Z79.01 Long term (current) use of anticoagulants; R41.0 Disorientation, unspecified; R53.83 Other fatigue; R29.6 Repeated falls
CPT/HCPCS: 36415; 36430; 36600; 70551; 73502-LT; 80048; 80053; 80156; 81001; 82550; 82565; 82803; 82962; 83735; 84443; 85025; 85651; 86140; 86850; 86900; 86901; 86902; 86920; 86922; 93971-LT; 97110-GO; 97110-GP; 97116-GP; 97162-GP; 97165-GO; 97530-GO; 97530-GP; 97535-GO; A9270-GY; J0878; J1335; J1644; J1815; J1815-GY; J1885; J7050; P9016

== ENCOUNTER 2019-12-11 03:01 | Emergency (ER) | payer MEDICARE, OTHER ==
[2019-12-11 04:10] VITALS: PULSE 66
--- NOTE | 2019-12-11 04:24 | EDM.PDOC ---
ED HPI GENERAL MEDICAL PROBLEM - General Chief Complaint: Chest Pain Stated Complaint: CHEST PAIN Time Seen by Provider: 12/11/19 03:19 Source of Information: Reports: Patient, Skilled Nursing Records History Limitations: Reports: No Limitations - History of Present Illness INITIAL COMMENTS - FREE TEXT/NARRATIVE: Katlin is a resident of [facility] who is reporting some mild anterior chest pain this am. "Sxs occurred during the night, appear to radiate into the L arm, without affecting the neck or back. There is no SOB, cough, palpitations , or change in BP. No meds have been given. Sxs appear to have improved since arrival by EMS. Chest Pain Score (Numeric/FACES): 8 - Related Data Allergies Allergy/AdvReac Type Severity Reaction Status Date / Time Penicillins Allergy Cannot Verified 09/13/18 19:11 Remember codeine AdvReac Mild Headache Verified 09/13/18 19:11 oxycodone [Oxycodone] AdvReac Mild Headache Verified 09/13/18 19:11 Home Meds: Home Meds Levothyroxine Sodium [Synthroid] 75 mcg PO QAM 02/22/16 [History] Aspirin [Halfprin] 81 mg PO BID 09/29/18 [History] Omeprazole 40 mg PO ACBREAKFAST 09/29/18 [History] Sodium Chloride [Saline Nose [place]] 2 spray NS Q2H PRN 09/29/18 [History] Ciprofloxacin [Ciprofloxacin HCl] 500 mg PO DAILY #90 tablet 10/22/18 [Rx] carBAMazepine [Carbamazepine] 100 mg PO TID #90 tablet 10/22/18 [Rx] Carboxymethylcellulose Sodium [Refresh Tears] 15 drop EYEBOTH TID 12/11/19 [ History] Cholecalciferol (Vitamin D3) [D-2000] 2,000 unit PO DAILY 12/11/19 [History] Citalopram Hydrobromide [Celexa] 10 mg PO DAILY 12/11/19 [History] Donepezil HCl [Aricept] 20 mg PO ACBREAKFAST 12/11/19 [History] Gabapentin [Neurontin] 200 mg PO BID 12/11/19 [History] Insulin Degludec [Tresiba Flextouch U-200] 90 units SQ BEDTIME 12/11/19 [History ] Latanoprost 1 drop EYEBOTH BEDTIME 12/11/19 [History] Propranolol [Inderal] 20 mg PO BID 12/11/19 [History] carBAMazepine [TEGretol] 200 mg PO BID 12/11/19 [History] carBAMazepine [TEGretol] 200 mg PO Q6HR PRN 12/11/19 [History] metFORMIN [Glucophage] 850 mg PO BIDMEALS 12/11/19 [History] Past Medical History - Past Health History Medical/Surgical History: Denies Medical/Surgical History HEENT History: Reports: Cataract, Glaucoma, Hard of Hearing, Other (See Below) Other HEENT History: Presbycusis. Bilateral hearing aids Cardiovascular History: Reports: High Cholesterol, Hypertension, Other (See Below) Other Cardiovascular History: history of chest discomfort. BLOOD CLOTTING DISORDER. HYPERTENSIVE CRISIS Respiratory History: Reports: Asthma, Sleep Apnea, Other (See Below) Other Respiratory History: Uses CPAP at night. Gastrointestinal History: Reports: GERD Genitourinary History: Reports: Urinary Incontinence, Other (See Below) Other Genitourinary History: Urinary incontinence mostly at night. 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 LEFT KNEE INSTABILITY Neurological History: Reports: Neuropathy, Peripheral, Seizure Psychiatric History: Reports: None Endocrine/Metabolic History: Reports: Diabetes, Type II, Hypothyroidism, Obesity /BMI 30+ Hematologic History: Reports: Bleeding Disorder Immunologic History: Reports: None Oncologic (Cancer) History: Reports: Uterine Dermatologic History: Reports: None - Infectious Disease History Infectious Disease History: Reports: Chicken Pox, Shingles - Past Surgical History HEENT Surgical History: Reports: None Cardiovascular Surgical History: Reports: None Respiratory Surgical History: Reports: None GI Surgical History: Reports: Appendectomy Female Surgical History: Reports: Hysterectomy, Oophorectomy Endocrine Surgical History: Reports: None Neurological Surgical History: Reports: None Musculoskeletal Surgical History: Reports: Carpal Tunnel, Hip Replacement, Other (See Below) Other Musculoskeletal Surgeries/Procedures:: Right hip replacement. left hip replacement. BUNIONECTOMY Dermatological Surgical History: Reports: None Social & Family History - Family History Family Medical History: Noncontributory - Tobacco Use Smoking Status *Q: Never Smoker Second Hand Smoke Exposure: No - Caffeine Use Caffeine Use: Reports: None - Recreational Drug Use Recreational Drug Use: No ED ROS GENERAL - Review of Systems Review Of Systems: Comprehensive ROS is negative, except as noted in HPI. ED EXAM, GENERAL - Physical Exam Exam: See Below Exam Limited By: No Limitations General Appearance: Alert, WD/WN, No Apparent Distress, Obese Eye Exam: Bilateral Eye: EOMI, Normal Inspection, PERRL Ears: Normal External Exam, Other (loss of hearing) Nose: Normal Inspection Throat/Mouth: Normal Inspection, Normal Oropharynx Head: Normocephalic Neck: Normal Inspection Respiratory/Chest: No Respiratory Distress, Lungs Clear, No Accessory Muscle Use , Other (L parasternal chest tenderness) Cardiovascular: Normal Peripheral Pulses, Regular Rate, Rhythm, No Murmur GI/Abdominal: Normal Bowel Sounds, Soft, Non-Tender, No Organomegaly, No Distention, No Mass (Female) Exam: Deferred Rectal (Female) Exam: Deferred Back Exam: Normal Inspection Extremities: Normal Inspection Neurological: Alert, CN II-XII Intact, No Motor/Sensory Deficits Psychiatric: Normal Affect, Normal Mood Skin Exam: Warm, Dry, Intact, Normal Color, No Rash Lymphatic: No Adenopathy Course - Vital Signs Text/Narrative:: Medical work up including ekg, CBC, CMP, and Troponin I were all WNL for age. The chest x ray was unchanged. Last Recorded V/S: Last Vital Signs Temp 36.6 C 12/11/19 03:14 Pulse 66 12/11/19 04:09 Resp 12 12/11/19 04:09 BP 132/53 L 12/11/19 04:09 Pulse Ox 98 12/11/19 04:09 - Orders/Labs/Meds Orders: Active Orders 24 hr Category Date Time Status EKG Documentation Completion [RC] ASDIRECTED Care 12/11/19 03:19 Active Chest 1V Frontal [CR] Stat Exams 12/11/19 03:18 Taken EKG 12 Lead [EK] Routine Ther 12/11/19 03:18 Ordered Labs: Laboratory Tests 12/11/19 12/11/19 12/11/19 Range/Units 03:35 03:35 03:35 WBC 5.5 (4.5-12.0) X10-3/uL RBC 3.69 (3.23-5.20) x10(6)uL Hgb 11.0 L (11.5-15.5) g/dL Hct 32.9 (30.0-51.3) % MCV 88.9 (80-96) fL MCH 29.8 (27.7-33.6) pg MCHC 33.5 (32.2-35.4) g/dL RDW 13.3 (11.5-15.5) % Plt Count 198 (125-369) X10(3)uL MPV 7.1 L (7.4-10.4) fL Neut % (Auto) 59.0 (46-82) % Lymph % (Auto) 31.7 (13-37) % [place] % (Auto) 9.0 (4-12) % Eos % (Auto) 0 L (1.0-5.0) % Baso % (Auto) 0 (0-2) % Neut # (Auto) 3.3 (1.6-8.3) # Lymph # (Auto) 1.7 (0.6-5.0) # [place] # (Auto) 0.5 (0.0-1.3) # Eos # (Auto) 0.0 (0.0-0.8) # Baso # (Auto) 0.0 (0.0-0.2) # Sodium 143 (135-145) mmol/L Potassium 4.8 (3.5-5.3) mmol/L Chloride 107 D (100-110) mmol/L Carbon Dioxide 25 (21-32) mmol/L BUN 36 H (7-18) mg/dL Creatinine 1.4 H (0.55-1.02) mg/dL Est Cr Clr Drug Dosing TNP Estimated GFR (MDRD) 37 L (>60) BUN/Creatinine Ratio 25.7 H (9-20) Glucose 97 (80-116) mg/dL Calcium 8.7 (8.6-10.2) mg/dL Total Bilirubin 0.2 (0.1-1.3) mg/dL AST 17 (5-25) IU/L ALT 18 (12-36) U/L Alkaline Phosphatase 64 (56-112) IU/L Troponin I 8.8 (4.0-60.3) pg/mL Total Protein 7.5 (6.0-8.0) g/dL Albumin 3.4 (3.2-4.6) g/dL Globulin 4.1 g/dL Albumin/Globulin Ratio 0.8 Departure - Departure Time of Disposition: 04:26 Disposition: Home, Self-Care 01 Condition: Fair Clinical Impression: Atypical chest pain Instructions: Nonspecific Chest Pain, Adult Referrals: PCP,None [Primary Care Provider] - Sepsis Event Note - Evaluation Sepsis Screening Result: No Definite Risk - Focused Exam Vital Signs: Vital Signs Temp Pulse Resp BP Pulse Ox 12/11/19 04:09 66 12 132/53 L 98 12/11/19 03:30 64 143/59 H 12/11/19 03:14 36.6 C 66 18 128/100 H 97 Date Exam was Performed: 12/11/19 Time Exam was Performed: 04:18 - Problem List & Annotations (1) Atypical chest pain SNOMED Code(s): 173551695 Code(s): R07.89 - OTHER CHEST PAIN Status: Acute Current Visit: Yes Annotation/Comment:: Atypical chest pain with chest wall features, managed with NSAIDs. - Problem List Review Problem List Initiated/Reviewed/Updated: Yes - My Orders Last 24 Hours: My Active Orders 12/11/19 03:18 Chest 1V Frontal [CR] Stat EKG 12 Lead [EK] Routine 12/11/19 03:19 EKG Documentation Completion [RC] ASDIRECTED - Assessment/Plan Last 24 Hours: My Active Orders 12/11/19 03:18 Chest 1V Frontal [CR] Stat EKG 12 Lead [EK] Routine 12/11/19 03:19 EKG Documentation Completion [RC] ASDIRECTED Plan: Follow up if needed.
[2019-12-11 06:03] VITALS: BP 120/58
--- NOTE | 2019-12-11 10:03 | CR ---
INDICATION: Chest pain. CHEST, ONE VIEW: Portable AP upright view of the chest was obtained 12/11/2019 and compared with 06/21/2017 and 03/11/2016. The heart appears to be at the upper limits of normal in size or slightly enlarged. The aorta is minimally tortuous. Overlying EKG leads are noted. A definite active infiltrate or effusion was not identified. Evidence of exogenous obesity is again noted. IMPRESSION: 1. No acute process - stable appearance compared with previous study. 2. Mild ASHD. 3. Exogenous obesity. MTDD
== END 2019-12-11 05:42 | disposition home or self-care (01) ==
LOC: FB.ED 03:01
DX: R07.89 Other chest pain (principal); E78.00 Pure hypercholesterolemia, unspecified; E11.42 Type 2 diabetes mellitus with diabetic polyneuropathy; E03.9 Hypothyroidism, unspecified; E66.9 Obesity, unspecified; K21.9 Gastro-esophageal reflux disease without esophagitis; J45.909 Unspecified asthma, uncomplicated; Z88.0 Allergy status to penicillin; Z88.5 Allergy status to narcotic agent; Z79.82 Long term (current) use of aspirin; Z79.899 Other long term (current) drug therapy; Z79.4 Long term (current) use of insulin
CPT/HCPCS: 36415; 71045; 80053; 84484; 85025; 93005; 99285-25

== ENCOUNTER 2020-09-12 15:11 | Emergency (ER) | payer MEDICARE, OTHER ==
[2020-09-12] MEDS ORDERED: Ketorolac 60 MG/2 ML SDV IM ONE ×3 (15:39→18:16)
[2020-09-12] MEDS ORDERED: Ketorolac 30 MG/ML SDV IM ONE (15:44)
[2020-09-12] MEDS ORDERED: Acetaminophen 500 MG Tab PO ONE (15:44)
[2020-09-12] MEDS ORDERED: amLODIPine 10 MG Tab PO ONE (15:50)
--- NOTE | 2020-09-12 16:33 | EDM.PDOC ---
ED HPI GENERAL MEDICAL PROBLEM - General Chief Complaint: Headache Time Seen by Provider: 09/12/20 15:20 Source of Information: Reports: Patient History Limitations: Reports: No Limitations - History of Present Illness INITIAL COMMENTS - FREE TEXT/NARRATIVE: Patient presented to the ED because of headache over the frontal and parietal area. It's throbbing, denies any N/V or any other Neuro symptoms. Upon triage she is found to have an elevated BP. headache Pain Score (Numeric/FACES): 8 - Related Data Allergies Allergy/AdvReac Type Severity Reaction Status Date / Time Penicillins Allergy Cannot Verified 09/13/18 19:11 Remember codeine AdvReac Mild Headache Verified 09/13/18 19:11 oxycodone [Oxycodone] AdvReac Mild Headache Verified 09/13/18 19:11 Home Meds: Home Meds Levothyroxine Sodium [Synthroid] 75 mcg PO QAM 02/22/16 [History] Aspirin [Halfprin] 81 mg PO BID 09/29/18 [History] Omeprazole 40 mg PO ACBREAKFAST 09/29/18 [History] Sodium Chloride [Saline Nose [place]] 2 spray NS Q2H PRN 09/29/18 [History] Ciprofloxacin [Ciprofloxacin HCl] 500 mg PO DAILY #90 tablet 10/22/18 [Rx] carBAMazepine [Carbamazepine] 100 mg PO TID #90 tablet 10/22/18 [Rx] Carboxymethylcellulose Sodium [Refresh Tears] 15 drop EYEBOTH TID 12/11/19 [History] Cholecalciferol (Vitamin D3) [D-2000] 2,000 unit PO DAILY 12/11/19 [History] Citalopram Hydrobromide [Celexa] 10 mg PO DAILY 12/11/19 [History] Donepezil HCl [Aricept] 20 mg PO ACBREAKFAST 12/11/19 [History] Gabapentin [Neurontin] 200 mg PO BID 12/11/19 [History] Insulin Degludec [Tresiba Flextouch U-200] 90 units SQ BEDTIME 12/11/19 [History] Latanoprost 1 drop EYEBOTH BEDTIME 12/11/19 [History] Propranolol [Inderal] 20 mg PO BID 12/11/19 [History] carBAMazepine [TEGretol] 200 mg PO BID 12/11/19 [History] carBAMazepine [TEGretol] 200 mg PO Q6HR PRN 12/11/19 [History] metFORMIN [Glucophage] 850 mg PO BIDMEALS 12/11/19 [History] Past Medical History - Past Health History Medical/Surgical History: Denies Medical/Surgical History HEENT History: Reports: Cataract, Glaucoma, Hard of Hearing, Other (See Below) Other HEENT History: Presbycusis. Bilateral hearing aids Cardiovascular History: Reports: High Cholesterol, Hypertension, Other (See Below) Other Cardiovascular History: history of chest discomfort. BLOOD CLOTTING DISORDER. HYPERTENSIVE CRISIS Respiratory History: Reports: Asthma, Sleep Apnea, Other (See Below) Other Respiratory History: Uses CPAP at night. Gastrointestinal History: Reports: GERD Genitourinary History: Reports: Urinary Incontinence, Other (See Below) Other Genitourinary History: Urinary incontinence mostly at night. 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 Immunologic History: Reports: None Oncologic (Cancer) History: Reports: Uterine Dermatologic History: Reports: None - Infectious Disease History Infectious Disease History: Reports: Chicken Pox, Shingles - Past Surgical History HEENT Surgical History: Reports: None Cardiovascular Surgical History: Reports: None Respiratory Surgical History: Reports: None GI Surgical History: Reports: Appendectomy Female Surgical History: Reports: Hysterectomy, Oophorectomy Endocrine Surgical History: Reports: None Neurological Surgical History: Reports: None Musculoskeletal Surgical History: Reports: Carpal Tunnel, Hip Replacement, Other (See Below) Other Musculoskeletal Surgeries/Procedures:: Right hip replacement. left hip replacement. BUNIONECTOMY Dermatological Surgical History: Reports: None Social & Family History - Family History Family Medical History: No Pertinent Family History - Caffeine Use Caffeine Use: Reports: None ED ROS GENERAL - Review of Systems Review Of Systems: See Below Constitutional: Reports: No Symptoms HEENT: Reports: No Symptoms Respiratory: Reports: No Symptoms Cardiovascular: Reports: No Symptoms Endocrine: Reports: No Symptoms GI/Abdominal: Reports: No Symptoms : Reports: No Symptoms Musculoskeletal: Reports: No Symptoms Skin: Reports: No Symptoms Neurological: Reports: Headache Psychiatric: Reports: No Symptoms - Physical Exam Exam: See Below Exam Limited By: No Limitations General Appearance: Alert, No Apparent Distress Ears: Normal External Exam, Normal Canal, Hearing Grossly Normal Nose: Normal Inspection, Normal Mucosa Throat/Mouth: Normal Inspection, Normal Lips, Normal Teeth, Normal Gums Head Exam: Atraumatic, Normocephalic Neck: Normal Inspection, Supple, Non-Tender, Full Range of Motion Respiratory/Chest: No Respiratory Distress, Lungs Clear, Normal Breath Sounds, No Accessory Muscle Use, Chest Non-Tender Cardiovascular: Normal Peripheral Pulses, Regular Rate, Rhythm, No Edema, No Gallop GI/Abdominal: Normal Bowel Sounds, Soft, Non-Tender, No Organomegaly Neuro Exam (Abbreviated): Alert, Oriented, CN II-XII Intact, Normal Cognition, Normal Gait Back Exam: Normal Inspection, Full Range of Motion Extremities: Normal Inspection, Normal Range of Motion Psychiatric: Normal Affect, Normal Mood Skin Exam: Warm, Dry, Intact, Normal Color, No Rash Course - Vital Signs Text/Narrative:: Head [id number] result Toradol 30 mg IM x1 Tylenol 1000 mg PO x1 Norvasc 10 mg PO x1 Last Recorded V/S: Last Vital Signs Temp 36.4 C 09/12/20 15:15 Pulse 66 09/12/20 15:58 Resp 17 09/12/20 15:58 BP 149/65 H 09/12/20 15:58 Pulse Ox 95 09/12/20 15:58 - Orders/Labs/Meds Orders: Active Orders 24 hr Category Date Time Status Head wo Cont [CT] Stat Exams 09/12/20 15:39 Ordered Meds: Medications Discontinued Medications Generic Name Dose Route Start Last Admin Trade Name Lorin PRN Reason Stop Dose Admin Acetaminophen 1,000 mg 09/12/20 15:44 09/12/20 15:55 Tylenol Extra Strength PO 09/12/20 15:45 1,000 mg ONETIME ONE Administration Amlodipine Besylate 10 mg 09/12/20 21:00 Norvasc PO BEDTIME GAVIN Amlodipine Besylate 10 mg 09/12/20 15:50 Norvasc PO 09/12/20 15:51 ONETIME ONE Ketorolac Tromethamine 60 mg 09/12/20 15:39 09/12/20 15:46 Toradol IM 09/12/20 15:40 Not Given ONETIME ONE Ketorolac Tromethamine 60 mg 09/12/20 15:41 09/12/20 15:46 Toradol IM 09/12/20 15:42 Not Given ONETIME ONE Ketorolac Tromethamine 30 mg 09/12/20 15:44 09/12/20 15:54 Toradol IM 09/12/20 15:45 30 mg ONETIME ONE Administration Morphine Sulfate 4 mg 09/12/20 16:59 09/12/20 17:12 Morphine IM 09/12/20 17:00 Not Given ONETIME ONE Morphine Sulfate 4 mg 09/12/20 17:11 09/12/20 17:16 Morphine IM 09/12/20 17:12 Not Given ONETIME ONE Morphine Sulfate 4 mg 09/12/20 17:16 09/12/20 17:19 Morphine IM 09/12/20 17:17 4 mg ONETIME ONE Administration Departure - Departure Time of Disposition: 17:45 Disposition: Home, Self-Care 01 Condition: Good Clinical Impression: Headache Hypertension Qualifiers: Hypertension type: essential hypertension Qualified Code(s): I10 - Essential (primary) hypertension - Discharge Information Instructions: Hypertension, Adult, [id number], General Headache Without Cause, [id number] Referrals: PCP,None [Primary Care Provider] - Forms: ED Department Discharge Additional Instructions: Please read discharge instructions on headache and hypertension Take ibuprofen 600 mg with tylenol 1000 every 8 hours as needed for headache Follow up as needed Sepsis Event Note (ED) - Evaluation Sepsis Screening Result: No Definite Risk - Focused Exam Vital Signs: Vital Signs Temp Pulse Resp BP Pulse Ox 09/12/20 15:58 66 17 149/65 H 95 09/12/20 15:15 36.4 C 74 16 181/76 H 95 - My Orders Last 24 Hours: My Active Orders 09/12/20 15:39 Head wo Cont [CT] Stat - Assessment/Plan Last 24 Hours: My Active Orders 09/12/20 15:39 Head wo Cont [CT] Stat
[2020-09-12] MEDS ORDERED: Morphine 4 MG/ML VIAL IM ONE ×3 (16:59→17:16)
[2020-09-12] MEDS ORDERED: Acetaminophen/oxyCODONE 325-5 MG Tab PO STA (18:16)
[2020-09-12 18:27] VITALS: BP 144/77; PULSE 64
[2020-09-12] MEDS ORDERED: amLODIPine 10 MG Tab PO SCH (21:00)
== END 2020-09-12 19:21 | disposition home or self-care (01) ==
LOC: FB.ED 15:11
DX: I10 Essential (primary) hypertension (principal); E78.00 Pure hypercholesterolemia, unspecified; J45.909 Unspecified asthma, uncomplicated; K21.9 Gastro-esophageal reflux disease without esophagitis; M19.90 Unspecified osteoarthritis, unspecified site; E11.42 Type 2 diabetes mellitus with diabetic polyneuropathy; E03.9 Hypothyroidism, unspecified; E66.9 Obesity, unspecified; Z68.33 Body mass index [BMI] 33.0-33.9, adult; Z88.0 Allergy status to penicillin; Z88.5 Allergy status to narcotic agent; Z79.82 Long term (current) use of aspirin; Z79.899 Other long term (current) drug therapy; Z79.4 Long term (current) use of insulin
CPT/HCPCS: 70450; 96372; 99284; A9270; J1885; J2270

== ENCOUNTER 2020-10-11 05:17 | Emergency (ER) | payer MEDICARE, OTHER ==
[2020-10-11 05:33] VITALS: BP 105/42; PULSE 64
[2020-10-11] MEDS ORDERED: Sodium Chloride 0.9% 10 ML Syringe FLUSH PRN (05:52)
[2020-10-11] MEDS ORDERED: Aspirin 81 MG Tab.Chew PO ONE (05:53)
[2020-10-11] MEDS ORDERED: Ketorolac 30 MG/ML SDV IVPUSH ONE (05:53)
--- NOTE | 2020-10-11 05:58 | EDM.PDOC ---
ED HPI GENERAL MEDICAL PROBLEM - General Chief Complaint: Chest Pain Stated Complaint: SOB Time Seen by Provider: 10/11/20 05:54 Source of Information: Reports: Patient History Limitations: Reports: No Limitations - History of Present Illness INITIAL COMMENTS - FREE TEXT/NARRATIVE: Patient awoke at 0300 with substernal non-radiating chest pain. Pain persists, has not improved or worsened. Is not worse with inspiration. Denies SOB or cough. Duration: Hour(s): (3) Location: Reports: Chest Quality: Reports: Ache Severity: Moderate Chest Pain Score (Numeric/FACES): 6 - Related Data Allergies Allergy/AdvReac Type Severity Reaction Status Date / Time Penicillins Allergy Cannot Verified 09/13/18 19:11 Remember codeine AdvReac Mild Headache Verified 09/13/18 19:11 oxycodone [Oxycodone] AdvReac Mild Headache Verified 09/13/18 19:11 Home Meds: Home Meds Levothyroxine Sodium [Synthroid] 75 mcg PO QAM 02/22/16 [History] Aspirin [Halfprin] 81 mg PO BID 09/29/18 [History] Omeprazole 40 mg PO ACBREAKFAST 09/29/18 [History] Sodium Chloride [Saline Nose [place]] 2 spray NS Q2H PRN 09/29/18 [History] Carboxymethylcellulose Sodium [Refresh Tears] 1 drop EYEBOTH TID 12/11/19 [History] Cholecalciferol (Vitamin D3) [D-2000] 2,000 unit PO DAILY 12/11/19 [History] Citalopram Hydrobromide [Celexa] 20 mg PO DAILY 12/11/19 [History] Donepezil HCl [Aricept] 20 mg PO ACBREAKFAST 12/11/19 [History] Gabapentin [Neurontin] 200 mg PO BID 12/11/19 [History] Insulin Degludec [Tresiba Flextouch U-200] 30 units SQ BEDTIME 12/11/19 [History] Latanoprost 1 drop EYEBOTH BEDTIME 12/11/19 [History] Propranolol [Inderal] 20 mg PO BID 12/11/19 [History] carBAMazepine [TEGretol] 200 mg PO BID 12/11/19 [History] metFORMIN [Glucophage] 850 mg PO BIDMEALS 12/11/19 [History] Gabapentin [Neurontin] 200 mg PO DAILY PRN 10/11/20 [History] Mag Hydrox/Aluminum Hyd/Simeth [Mylanta Maximum Strength Liq] 10 ml PO QID PRN 10/11/20 [History] SUMAtriptan succinate [Imitrex] 100 mg PO BID PRN 10/11/20 [History] Topiramate 25 mg PO BEDTIME 10/11/20 [History] guaiFENesin/Dextromethorphan [Guaifenesin-Dm 200-20 mg/10 ml] 10 ml PO Q4HR PRN 10/11/20 [History] Past Medical History HEENT History: Reports: Cataract, Glaucoma, Hard of Hearing, Other (See Below) Other HEENT History: Presbycusis. Bilateral hearing aids Cardiovascular History: Reports: High Cholesterol, Hypertension, Other (See Below). Denies: [place] Other Cardiovascular History: history of chest discomfort. BLOOD CLOTTING DISORDER. HYPERTENSIVE CRISIS Respiratory History: Reports: Asthma, Sleep Apnea, Other (See Below) Other Respiratory History: Uses CPAP at night. Gastrointestinal History: Reports: GERD Genitourinary History: Reports: Urinary Incontinence, Other (See Below) Other Genitourinary History: Urinary incontinence mostly at night. 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 Immunologic History: Reports: None Oncologic (Cancer) History: Reports: Uterine Dermatologic History: Reports: None - Infectious Disease History Infectious Disease History: Reports: Chicken Pox, Shingles - Past Surgical History HEENT Surgical History: Reports: None Cardiovascular Surgical History: Reports: None Respiratory Surgical History: Reports: None GI Surgical History: Reports: Appendectomy Female Surgical History: Reports: Hysterectomy, Oophorectomy Endocrine Surgical History: Reports: None Neurological Surgical History: Reports: None Musculoskeletal Surgical History: Reports: Carpal Tunnel, Hip Replacement, Other (See Below) Other Musculoskeletal Surgeries/Procedures:: Right hip replacement. left hip replacement. BUNIONECTOMY Dermatological Surgical History: Reports: None Social & Family History - Family History Family Medical History: No Pertinent Family History - Tobacco Use Tobacco Use Status *Q: Never Tobacco User - Caffeine Use Caffeine Use: Reports: Coffee - Recreational Drug Use Recreational Drug Use: No ED ROS GENERAL - Review of Systems Review Of Systems: Comprehensive ROS is negative, except as noted in HPI. ED EXAM, GENERAL - Physical Exam Exam: Not Obtained Exam Limited By: No Limitations General Appearance: Alert, WD/WN, No Apparent Distress Throat/Mouth: No Airway Compromise Head: Atraumatic, Normocephalic Neck: Full Range of Motion Respiratory/Chest: No Respiratory Distress, Lungs Clear, Normal Breath Sounds, Other (Bilateral parasternal chest wall tenderness present) Cardiovascular: Regular Rate, Rhythm, No Murmur GI/Abdominal: Normal Bowel Sounds, Soft, Non-Tender, No Distention Back Exam: Full Range of Motion Extremities: Normal Range of Motion, Non-Tender Neurological: Normal Cognition Psychiatric: Normal Affect, Normal Mood Skin Exam: Warm, Dry, Intact #1 Interpretation EKG Date: 10/11/20 Time: 05:22 Rhythm: NSR Rate (Beats/Min): 55 [place]: Normal P-Wave: Present QRS: RBBB ST-T: Normal QT: Normal Comparison: No Change (12/11/2019) Course - Vital Signs Last Recorded V/S: Last Vital Signs Temp 36.6 C 10/11/20 05:28 Pulse 64 10/11/20 05:28 Resp 16 10/11/20 05:28 BP 105/42 L 10/11/20 05:28 Pulse Ox 98 10/11/20 05:28 - Orders/Labs/Meds Orders: Active Orders 24 hr Category Date Time Status EKG Documentation Completion [RC] ASDIRECTED Care 10/11/20 05:52 Active Ang Chest [CT] Stat Exams 10/11/20 07:25 Taken CXR [Chest 1V Frontal] [CR] Stat Exams 10/11/20 05:50 Taken Sodium Chloride 0.9% [Saline Flush] Med 10/11/20 05:52 Active 10 ml FLUSH ASDIRECTED PRN Saline Lock Insert [OM.PC] Routine Oth 10/11/20 05:52 Ordered EKG 12 Lead [EK] Stat Ther 10/11/20 05:52 Ordered Medication Orders Sodium Chloride (Saline Flush) 10 ml FLUSH ASDIRECTED PRN PRN Reason: Keep Vein Open Labs: Laboratory Tests 01/10/11/20 10/11/20 Range/Units 06:00 06:00 06:00 WBC 5.4 (3.0-10.3) x10-3/uL RBC 3.58 L (3.60-5.20) x10(6)uL Hgb 10.5 L (11.4-15.5) g/dL Hct 32.5 L (34.2-48.2) % MCV 90.6 (76.7-100.5) fL MCH 29.3 (23.9-33.9) pg MCHC 32.3 (31.9-34.8) g/dL RDW 13.3 (12.3-16.5) % Plt Count 170 (151-488) x10(3)uL MPV 8.3 (7.1-12.4) fL Neut % (Auto) 56.4 (30.8-76.2) % Lymph % (Auto) 33.2 (18.4-52.1) % [place] % (Auto) 10.0 (4.4-15.7) % Eos % (Auto) 0.0 L (0.6-8.1) % Baso % (Auto) 0.4 (0.2-1.5) % Neut # (Auto) 3.1 (1.5-6.3) x10-3/uL Lymph # (Auto) 1.8 (1.0-4.4) x10-3/uL [place] # (Auto) 0.5 (0.3-1.0) x10-3/uL Eos # (Auto) 0.0 (0.0-0.8) x10-3/uL Baso # (Auto) 0.0 (0.0-0.1) x10-3/uL PT 10.4 (9.0-11.1) sec INR 0.96 L (1.00-1.24) APTT 25.4 (24.4-33.2) SECONDS D-Dimer, Quantitative (0.0-0.59) mg/LFEU Sodium 143 (135-145) mmol/L Potassium 5.2 (3.5-5.3) mmol/L Chloride 107 (100-110) mmol/L Carbon Dioxide 27 (21-32) mmol/L BUN 35 H (7-18) mg/dL Creatinine 1.6 H (0.55-1.02) mg/dL Est Cr Clr Drug Dosing TNP Estimated GFR (MDRD) 32 L (>60) BUN/Creatinine Ratio 21.9 H (9-20) Glucose 127 H (80-116) mg/dL Calcium 9.0 (8.6-10.2) mg/dL Total Bilirubin 0.2 (0.1-1.3) mg/dL AST 15 D (5-25) IU/L ALT 19 (12-36) U/L Alkaline Phosphatase 58 (56-112) IU/L Troponin I (4.0-60.3) pg/mL Total Protein 7.3 (6.0-8.0) g/dL Albumin 3.5 (3.2-4.6) g/dL Globulin 3.8 g/dL Albumin/Globulin Ratio 0.9 10/11/20 10/11/20 10/11/20 Range/Units 06:00 06:00 08:40 WBC (3.0-10.3) x10-3/uL RBC (3.60-5.20) x10(6)uL Hgb (11.4-15.5) g/dL Hct (34.2-48.2) % MCV (76.7-100.5) fL MCH (23.9-33.9) pg MCHC (31.9-34.8) g/dL RDW (12.3-16.5) % Plt Count (151-488) x10(3)uL MPV (7.1-12.4) fL Neut % (Auto) (30.8-76.2) % Lymph % (Auto) (18.4-52.1) % [place] % (Auto) (4.4-15.7) % Eos % (Auto) (0.6-8.1) % Baso % (Auto) (0.2-1.5) % Neut # (Auto) (1.5-6.3) x10-3/uL Lymph # (Auto) (1.0-4.4) x10-3/uL [place] # (Auto) (0.3-1.0) x10-3/uL Eos # (Auto) (0.0-0.8) x10-3/uL Baso # (Auto) (0.0-0.1) x10-3/uL PT (9.0-11.1) sec INR (1.00-1.24) APTT (24.4-33.2) SECONDS D-Dimer, Quantitative 0.96 H (0.0-0.59) mg/LFEU Sodium (135-145) mmol/L Potassium (3.5-5.3) mmol/L Chloride (100-110) mmol/L Carbon Dioxide (21-32) mmol/L BUN (7-18) mg/dL Creatinine (0.55-1.02) mg/dL Est Cr Clr Drug Dosing Estimated GFR (MDRD) (>60) BUN/Creatinine Ratio (9-20) Glucose (80-116) mg/dL Calcium (8.6-10.2) mg/dL Total Bilirubin (0.1-1.3) mg/dL AST (5-25) IU/L ALT (12-36) U/L Alkaline Phosphatase (56-112) IU/L Troponin I 6.8 6.8 (4.0-60.3) pg/mL Total Protein (6.0-8.0) g/dL Albumin (3.2-4.6) g/dL Globulin g/dL Albumin/Globulin Ratio Meds: Medications Generic Name Dose Route Start Last Admin Trade Name Lorin PRN Reason Stop Dose Admin Sodium Chloride 10 ml 10/11/20 05:52 Saline Flush FLUSH ASDIRECTED PRN Keep Vein Open Discontinued Medications Generic Name Dose Route Start Last Admin Trade Name Lorin PRN Reason Stop Dose Admin Aspirin 324 mg 10/11/20 05:53 10/11/20 05:57 Aspirin PO 10/11/20 05:54 324 mg ONETIME ONE Administration Sodium Chloride 500 mls @ 500 mls/hr 10/11/20 08:05 10/11/20 08:10 Normal Saline IV 10/11/20 09:04 500 mls/hr .BOLUS ONE Administration Iopamidol 100 ml 10/11/20 07:26 10/11/20 07:54 Isovue-370 (76%) IV 10/11/20 07:27 75 ml . DIRECTED ONE Administration Ketorolac Tromethamine 15 mg 10/11/20 05:53 10/11/20 05:57 Toradol IVPUSH 10/11/20 05:54 15 mg ONETIME ONE Administration - Radiology Interpretation Free Text/Narrative:: CXR: No acute process. (ED provider interpretation) CTA Chest: IMPRESSION: 1. No evidence of acute PE. 2. Age indeterminate L1 vertebral compression deformity. Recommend correlation for point tenderness. 3. Multiple small solid subpleural pulmonary nodules, measuring up to 6 mm in the right lower lobe. Recommend initial follow up chest CT at 3-6 months to evaluate stability, per Fleischner criteria. Dictated by Felipe Christopher MD @ 10/11/2020 8:15:20 AM - Re-Assessments/Exams Free Text/Narrative Re-Assessment/Exam: 10/11/20 09:22 Symptoms improved after Toradol 15mg IV. Departure - Departure Time of Disposition: 09:23 Disposition: Home, Self-Care 01 Condition: Good Clinical Impression: Costochondritis Instructions: Costochondritis, [id number] Referrals: PCP,None [Primary Care Provider] - Fadi Johnson MD [ED Physician] - 3 Days Forms: ED Department Discharge Additional Instructions: Take OTC Ibuprofen 400mg every 6 hours as needed to control pain. Rest. Follow up with your primary physician in 3-4 days. Return to the ER if symptoms worsen. Sepsis Event Note (ED) - Evaluation Sepsis Screening Result: No Definite Risk - Focused Exam Vital Signs: Vital Signs Temp Pulse Resp BP Pulse Ox 10/11/20 05:28 36.6 C 64 16 105/42 L 98 - My Orders Last 24 Hours: My Active Orders 10/11/20 05:50 CXR [Chest 1V Frontal] [CR] Stat 10/11/20 05:52 EKG Documentation Completion [RC] ASDIRECTED Sodium Chloride 0.9% [Saline Flush] 10 ml FLUSH ASDIRECTED PRN Saline Lock Insert [OM.PC] Routine EKG 12 Lead [EK] Stat 10/11/20 07:25 Ang Chest [CT] Stat - Assessment/Plan Last 24 Hours: My Active Orders 10/11/20 05:50 CXR [Chest 1V Frontal] [CR] Stat 10/11/20 05:52 EKG Documentation Completion [RC] ASDIRECTED Sodium Chloride 0.9% [Saline Flush] 10 ml FLUSH ASDIRECTED PRN Saline Lock Insert [OM.PC] Routine EKG 12 Lead [EK] Stat 10/11/20 07:25 Ang Chest [CT] Stat
[2020-10-11] MEDS ORDERED: Iopamidol 755 Mg/ML 100 ML Bottle IV ONE (07:26)
[2020-10-11] MEDS ORDERED: Sodium Chloride 0.9% 500 ML IV ONE (08:05)
--- NOTE | 2020-10-12 11:08 | CR ---
INDICATION: Chest pain. CHEST ONE VIEW: AP portable upright view of the chest 10/11/20 was compared with 12/11/19 and 06/21/17. The heart did not appear enlarged. Overlying EKG leads are noted. The aorta was only very minimally tortuous. A definite active infiltrate or effusion was not identified. Evidence of exogenous obesity is again noted. Somewhat heavy markings are again noted at the lung bases which likely are on the basis of relatively poor inspiration. IMPRESSION: Fairly stable appearance of the chest with no definite acute process. MTDD
== END 2020-10-11 10:15 | disposition home or self-care (01) ==
LOC: FB.ED 05:17
DX: M94.0 Chondrocostal junction syndrome [Tietze] (principal); J45.909 Unspecified asthma, uncomplicated; I10 Essential (primary) hypertension; K21.9 Gastro-esophageal reflux disease without esophagitis; M19.90 Unspecified osteoarthritis, unspecified site; E03.9 Hypothyroidism, unspecified; E11.42 Type 2 diabetes mellitus with diabetic polyneuropathy; E66.9 Obesity, unspecified; Z88.0 Allergy status to penicillin; Z88.5 Allergy status to narcotic agent; Z79.82 Long term (current) use of aspirin
CPT/HCPCS: 36415; 71045; 71275; 80053; 84484; 85025; 85379; 85610; 85730; 93005; 96374; 99284; 99285-25; A9270-GY; J1885; J7040; Q9967

== ENCOUNTER 2020-11-09 15:42 | Emergency (ER) | payer MEDICARE, OTHER ==
[2020-11-09] MEDS ORDERED: Sodium Chloride 0.9% 10 ML Syringe FLUSH PRN (15:49)
[2020-11-09] MEDS ORDERED: Aspirin 81 MG Tab.Chew PO ONE (15:55)
[2020-11-09] MEDS ORDERED: Ketorolac 30 MG/ML SDV IVPUSH ONE (16:00)
--- NOTE | 2020-11-09 16:05 | EDM.PDOC ---
ED HPI GENERAL MEDICAL PROBLEM - General Chief Complaint: Chest Pain Stated Complaint: CHEST PAIN Time Seen by Provider: 11/09/20 16:00 Source of Information: Reports: Patient History Limitations: Reports: No Limitations - History of Present Illness INITIAL COMMENTS - FREE TEXT/NARRATIVE: Presents with sharp substernal chest pain since this morning. Pain worsened throughout the day. Was given Mylanta without improvement. Treated in the ED on 10/11/20 for similar symptoms, diagnosed with costochondritis. Denies SOB or cough. Onset: Today Location: Reports: Chest Quality: Reports: Same as Previous Episode, Sharp Severity: Moderate Chest Pain Score (Numeric/FACES): 5 - Related Data Allergies Allergy/AdvReac Type Severity Reaction Status Date / Time Penicillins Allergy Cannot Verified 09/13/18 19:11 Remember codeine AdvReac Mild Headache Verified 09/13/18 19:11 oxycodone [Oxycodone] AdvReac Mild Headache Verified 09/13/18 19:11 Home Meds: Home Meds Levothyroxine Sodium [Synthroid] 75 mcg PO ACBREAKFAST 02/22/16 [History] Aspirin [Halfprin] 81 mg PO BID 09/29/18 [History] Omeprazole 40 mg PO ACBREAKFAST 09/29/18 [History] Carboxymethylcellulose Sodium [Refresh Tears] 1 drop EYEBOTH TID 12/11/19 [History] Cholecalciferol (Vitamin D3) [D-2000] 2,000 unit PO DAILY 12/11/19 [History] Donepezil HCl [Aricept] 20 mg PO DAILY 12/11/19 [History] Gabapentin [Neurontin] 200 mg PO BID 12/11/19 [History] Latanoprost 1 drop EYEBOTH BEDTIME 12/11/19 [History] Propranolol [Inderal] 20 mg PO BID 12/11/19 [History] metFORMIN [Glucophage] 850 mg PO BIDMEALS 12/11/19 [History] Gabapentin [Neurontin] 200 mg PO DAILY PRN 10/11/20 [History] Mag Hydrox/Aluminum Hyd/Simeth [Mylanta Maximum Strength Liq] 10 ml PO QID PRN 10/11/20 [History] SUMAtriptan succinate [Imitrex] 100 mg PO BID PRN 10/11/20 [History] Topiramate 50 mg PO BEDTIME 10/11/20 [History] guaiFENesin/Dextromethorphan [Guaifenesin-Dm 200-20 mg/10 ml] 10 ml PO Q4HR PRN 10/11/20 [History] Acetaminophen [Tylenol Arthritis Pain] 650 mg PO Q8H PRN 11/09/20 [History] Bisacodyl [Laxative Suppository] 10 mg RC ASDIRECTED PRN 11/09/20 [History] Citalopram Hydrobromide [Celexa] 20 mg PO DAILY 11/09/20 [History] Docusate Sodium [Colace] 100 mg PO DAILY 11/09/20 [History] Insulin Degludec [Tresiba] 30 unit SQ BEDTIME 11/09/20 [History] Loperamide HCl [Imodium A-D] 2 mg PO Q6HR PRN MDD 8 mg 11/09/20 [History] Magnesium Hydroxide [Milk of Magnesia] 30 ml PO DAILY PRN 11/09/20 [History] carBAMazepine [TEGretol XR] 200 mg PO BID 11/09/20 [History] cephALEXin [Cephalexin] 500 mg PO ASDIRECTED PRN 11/09/20 [History] Past Medical History HEENT History: Reports: Cataract, Glaucoma, Hard of Hearing, Other (See Below) Other HEENT History: Presbycusis. Bilateral hearing aids Cardiovascular History: Reports: High Cholesterol, Hypertension, Other (See Below). Denies: [place] Other Cardiovascular History: history of chest discomfort. BLOOD CLOTTING DISORDER. HYPERTENSIVE CRISIS Respiratory History: Reports: Asthma, Sleep Apnea, Other (See Below) Other Respiratory History: Uses CPAP at night. Gastrointestinal History: Reports: GERD Genitourinary History: Reports: Urinary Incontinence, Other (See Below) Other Genitourinary History: Urinary incontinence mostly at night. 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 Immunologic History: Reports: None Oncologic (Cancer) History: Reports: Uterine Dermatologic History: Reports: None - Infectious Disease History Infectious Disease History: Reports: Chicken Pox, Shingles - Past Surgical History HEENT Surgical History: Reports: None Cardiovascular Surgical History: Reports: None Respiratory Surgical History: Reports: None GI Surgical History: Reports: Appendectomy Female Surgical History: Reports: Hysterectomy, Oophorectomy Endocrine Surgical History: Reports: None Neurological Surgical History: Reports: None Musculoskeletal Surgical History: Reports: Carpal Tunnel, Hip Replacement, Other (See Below) Other Musculoskeletal Surgeries/Procedures:: Right hip replacement. left hip replacement. BUNIONECTOMY Dermatological Surgical History: Reports: None Social & Family History - Family History Family Medical History: No Pertinent Family History - Caffeine Use Caffeine Use: Reports: Coffee ED ROS GENERAL - Review of Systems Review Of Systems: Comprehensive ROS is negative, except as noted in HPI. ED EXAM, GENERAL - Physical Exam Exam: See Below Exam Limited By: No Limitations General Appearance: Alert, WD/WN, No Apparent Distress Throat/Mouth: No Airway Compromise Neck: Full Range of Motion Respiratory/Chest: No Respiratory Distress, Lungs Clear, Normal Breath Sounds, Other (sternal chest wall tenderness) Cardiovascular: Regular Rate, Rhythm, No Gallop, No Murmur GI/Abdominal: Non-Tender, No Distention Back Exam: Full Range of Motion Extremities: Normal Range of Motion, Non-Tender Neurological: Alert, Normal Cognition Psychiatric: Normal Affect, Normal Mood Skin Exam: Warm, Dry, Intact #1 Interpretation EKG Date: 11/09/20 Time: 15:47 Rhythm: NSR Rate (Beats/Min): 61 [place]: Normal P-Wave: Present QRS: RBBB ST-T: Normal QT: Normal Comparison: No Change (10/11/2020) Course - Vital Signs Last Recorded V/S: Last Vital Signs Temp 36.6 C 11/09/20 15:59 Pulse 67 11/09/20 17:25 Resp 14 11/09/20 17:25 BP 164/104 H 11/09/20 17:25 Pulse Ox 98 11/09/20 17:25 - Orders/Labs/Meds Orders: Active Orders 24 hr Category Date Time Status EKG Documentation Completion [RC] ASDIRECTED Care 11/09/20 15:49 Active TROPONIN I [CHEM] Routine Lab 11/09/20 18:30 Received Sodium Chloride 0.9% [Saline Flush] Med 11/09/20 15:49 Active 10 ml FLUSH ASDIRECTED PRN Saline Lock Insert [OM.PC] Routine Oth 11/09/20 15:49 Ordered EKG 12 Lead [EK] Stat Ther 11/09/20 15:48 Ordered Medication Orders Sodium Chloride (Saline Flush) 10 ml FLUSH ASDIRECTED PRN PRN Reason: Keep Vein Open Last Admin: 11/09/20 16:08 Dose: 10 ml Documented by: LC Labs: Laboratory Tests 11/09/20 11/09/20 11/09/20 Range/Units 16:00 16:00 16:00 WBC 5.8 (3.0-10.3) x10-3/uL RBC 3.41 L (3.60-5.20) x10(6)uL Hgb 10.2 L (11.4-15.5) g/dL Hct 30.6 L (34.2-48.2) % MCV 89.8 (76.7-100.5) fL MCH 29.9 (23.9-33.9) pg MCHC 33.3 (31.9-34.8) g/dL RDW 13.1 (12.3-16.5) % Plt Count 166 (151-488) x10(3)uL MPV 8.2 (7.1-12.4) fL Neut % (Auto) 53.7 (30.8-76.2) % Lymph % (Auto) 38.0 (18.4-52.1) % [place] % (Auto) 7.7 (4.4-15.7) % Eos % (Auto) 0.0 L (0.6-8.1) % Baso % (Auto) 0.6 (0.2-1.5) % Neut # (Auto) 3.1 (1.5-6.3) x10-3/uL Lymph # (Auto) 2.2 (1.0-4.4) x10-3/uL [place] # (Auto) 0.4 (0.3-1.0) x10-3/uL Eos # (Auto) 0.0 (0.0-0.8) x10-3/uL Baso # (Auto) 0.0 (0.0-0.1) x10-3/uL PT 10.1 (9.0-11.1) sec INR 0.94 L (1.00-1.24) APTT 24.7 (24.4-33.2) SECONDS D-Dimer, Quantitative (0.0-0.59) mg/LFEU Sodium 139 (135-145) mmol/L Potassium 5.1 (3.5-5.3) mmol/L Chloride 105 (100-110) mmol/L Carbon Dioxide 26 (21-32) mmol/L BUN 36 H (7-18) mg/dL Creatinine 1.5 H (0.55-1.02) mg/dL Est Cr Clr Drug Dosing 24.45 mL/min Estimated GFR (MDRD) 34 L (>60) BUN/Creatinine Ratio 24.0 H (9-20) Glucose 147 H (80-116) mg/dL Calcium 8.5 L (8.6-10.2) mg/dL Total Bilirubin 0.2 (0.1-1.3) mg/dL AST 17 D (5-25) IU/L ALT 20 (12-36) U/L Alkaline Phosphatase 56 (56-112) IU/L Troponin I (4.0-60.3) pg/mL Total Protein 7.5 (6.0-8.0) g/dL Albumin 3.6 (3.2-4.6) g/dL Globulin 3.9 g/dL Albumin/Globulin Ratio 0.9 11/09/20 11/09/20 Range/Units 16:00 16:00 WBC (3.0-10.3) x10-3/uL RBC (3.60-5.20) x10(6)uL Hgb (11.4-15.5) g/dL Hct (34.2-48.2) % MCV (76.7-100.5) fL MCH (23.9-33.9) pg MCHC (31.9-34.8) g/dL RDW (12.3-16.5) % Plt Count (151-488) x10(3)uL MPV (7.1-12.4) fL Neut % (Auto) (30.8-76.2) % Lymph % (Auto) (18.4-52.1) % [place] % (Auto) (4.4-15.7) % Eos % (Auto) (0.6-8.1) % Baso % (Auto) (0.2-1.5) % Neut # (Auto) (1.5-6.3) x10-3/uL Lymph # (Auto) (1.0-4.4) x10-3/uL [place] # (Auto) (0.3-1.0) x10-3/uL Eos # (Auto) (0.0-0.8) x10-3/uL Baso # (Auto) (0.0-0.1) x10-3/uL PT (9.0-11.1) sec INR (1.00-1.24) APTT (24.4-33.2) SECONDS D-Dimer, Quantitative 0.94 H (0.0-0.59) mg/LFEU Sodium (135-145) mmol/L Potassium (3.5-5.3) mmol/L Chloride (100-110) mmol/L Carbon Dioxide (21-32) mmol/L BUN (7-18) mg/dL Creatinine (0.55-1.02) mg/dL Est Cr Clr Drug Dosing mL/min Estimated GFR (MDRD) (>60) BUN/Creatinine Ratio (9-20) Glucose (80-116) mg/dL Calcium (8.6-10.2) mg/dL Total Bilirubin (0.1-1.3) mg/dL AST (5-25) IU/L ALT (12-36) U/L Alkaline Phosphatase (56-112) IU/L Troponin I 7.6 (4.0-60.3) pg/mL Total Protein (6.0-8.0) g/dL Albumin (3.2-4.6) g/dL Globulin g/dL Albumin/Globulin Ratio Meds: Medications Generic Name Dose Route Start Last Admin Trade Name Freq PRN Reason Stop Dose Admin Sodium Chloride 10 ml 11/09/20 15:49 11/09/20 16:08 Saline Flush FLUSH 10 ml ASDIRECTED PRN Administration Keep Vein Open Discontinued Medications Generic Name Dose Route Start Last Admin Trade Name Freq PRN Reason Stop Dose Admin Aspirin 324 mg 11/09/20 15:55 11/09/20 16:03 Aspirin PO 11/09/20 15:56 324 mg ONETIME ONE Administration Iopamidol 75 ml 11/09/20 17:31 11/09/20 17:53 Isovue-370 (76%) IV 11/09/20 17:32 75 ml . DIRECTED ONE Administration Ketorolac Tromethamine 15 mg 11/09/20 16:00 11/09/20 16:02 Toradol IVPUSH 11/09/20 16:01 15 mg ONETIME ONE Administration - Radiology Interpretation Free Text/Narrative:: CXR: No acute process. (Dr. Maynard) CTA Chest: IMPRESSION 1. No definite acute process -no definite active infiltrate or effusion or pulmonary emboli. 2. Atherosclerotic changes with possible cardiac involvement and addition possible significant stenosis at the origin of the celiac axis. 3. Small fixed hiatal hernia. 4. Degenerative changes and disk disease mid to lower thoracic spine. Stable probable osteoporitic compression fracture lower thoracic spine. Dictated by: Devonte Maynard [place] - Re-Assessments/Exams Free Text/Narrative Re-Assessment/Exam: 11/09/20 17:55 Symptoms improved after Toradol 15mg IV. 11/09/20 19:23 Troponin #2: 9.1 Departure - Departure Time of Disposition: 19:22 Disposition: Home, Self-Care 01 Condition: Good Clinical Impression: Costochondritis Instructions: Costochondritis, [id number] Referrals: Newton Jacobs MD [Primary Care Provider] - Forms: ED Department Discharge Additional Instructions: Take OTC Ibuprofen 400mg every 6 hours as needed. Apply a heating pad for comfort. Follow up as needed. Sepsis Event Note (ED) - Evaluation Sepsis Screening Result: No Definite Risk - Focused Exam Vital Signs: Vital Signs Temp Pulse Resp BP Pulse Ox 11/09/20 17:25 67 14 164/104 H 98 11/09/20 16:43 58 L 16 148/50 H 100 11/09/20 15:59 36.6 C 67 16 176/68 H 100 - My Orders Last 24 Hours: My Active Orders 11/09/20 15:48 EKG 12 Lead [EK] Stat 11/09/20 15:49 EKG Documentation Completion [RC] ASDIRECTED Sodium Chloride 0.9% [Saline Flush] 10 ml FLUSH ASDIRECTED PRN Saline Lock Insert [OM.PC] Routine 11/09/20 18:30 TROPONIN I [CHEM] Routine - Assessment/Plan Last 24 Hours: My Active Orders 11/09/20 15:48 EKG 12 Lead [EK] Stat 11/09/20 15:49 EKG Documentation Completion [RC] ASDIRECTED Sodium Chloride 0.9% [Saline Flush] 10 ml FLUSH ASDIRECTED PRN Saline Lock Insert [OM.PC] Routine 11/09/20 18:30 TROPONIN I [CHEM] Routine
--- NOTE | 2020-11-09 17:17 | CR ---
INDICATION: Chest pain. CHEST X-RAY ONE VIEW: Portable AP upright view of the chest was obtained 11/09/20 and compared with 10/11/20 and 12/11/19 revealing no significant appearing interval change - no acute process. The heart did not appear grossly enlarged. The aorta is minimally tortuous. Overlying EKG leads are noted. Exogenous obesity is again noted. Lungs appear to be somewhat hyperaerated without a definite active infiltrate or effusion. IMPRESSION: No definite acute process - stable appearance of the chest. MTDD
[2020-11-09] MEDS ORDERED: Iopamidol 755 Mg/ML 100 ML Bottle IV ONE (17:31)
--- NOTE | 2020-11-09 18:36 | CT ---
INDICATION: Chest pain, question PE. COMPUTERIZED TOMOGRAPHY ANGIOGRAPHY OF THE CHEST WITH CONTRAST: Spiral 1.25 mm axial sections were obtained through the chest with 75 mL Isovue-370 at 3.5 mL per second with sagittal, coronal and axial reconstructions 11/09/20 and compared with 10/11/20. Total exam DLP was 819.95 mGy-cm. A definite active infiltrate or effusion was not identified. There are a few subpleural densities most likely representing lymph nodes. No mediastinal mass was identified. Mediastinal lymphadenopathy is mild and nonspecific. Calcification is noted at the arch of the aorta and descending aorta to a mild degree. There is also is narrowing of the origin of the celiac axis which may be significant since there does appear to be poststenotic dilatation of the celiac axis. The heart appears to be slightly enlarged or at the upper limits of normal in size with coronary artery calcifications noted. Pericardial effusion is absent. Small fixed hiatal hernia is suggested. Upper abdomen included on the study was fairly unremarkable. No evidence of pulmonary emboli could be identified. IMPRESSION: 1. No definite acute process - no definite active infiltrate or effusion or pulmonary emboli identified. 2. Atherosclerotic changes with possible cardiac involvement and additional possible significant stenosis at the origin of the celiac axis. 3. Small fixed hiatal hernia. 4. Degenerative changes and disk disease mid to lower thoracic spine. Stable probable osteoporotic compression fracture lower thoracic spine. Report was called to Dr. Velez at 1818 hours. [facility]
[2020-11-09 19:38] VITALS: PULSE 69
[2020-11-09 19:40] VITALS: BP 148/74
== END 2020-11-09 20:08 | disposition home or self-care (01) ==
LOC: FB.ED 15:42
DX: M94.0 Chondrocostal junction syndrome [Tietze] (principal); I45.10 Unspecified right bundle-branch block; I10 Essential (primary) hypertension; J45.909 Unspecified asthma, uncomplicated; K21.9 Gastro-esophageal reflux disease without esophagitis; M06.9 Rheumatoid arthritis, unspecified; E11.42 Type 2 diabetes mellitus with diabetic polyneuropathy; E03.9 Hypothyroidism, unspecified; E66.9 Obesity, unspecified; Z68.33 Body mass index [BMI] 33.0-33.9, adult; Z88.0 Allergy status to penicillin; Z88.5 Allergy status to narcotic agent; Z79.82 Long term (current) use of aspirin; Z79.899 Other long term (current) drug therapy
CPT/HCPCS: 36415; 71045; 71275; 80053; 84484; 85025; 85379; 85610; 85730; 93005; 96374; 99285-25; A9270-GY; J1885; Q9967

== ENCOUNTER 2020-12-01 10:52 | Emergency (ER) | payer MEDICARE, OTHER ==
[2020-12-01] MEDS: Sodium Chloride 0.9% 1,000 ML IV SCH (11:34)
[2020-12-01] MEDS: Aspirin 81 MG Tab.Chew PO STA (11:56)
[2020-12-01] MEDS: Nitroglycerin 0.4 MG Tab.SL SL PRN (12:01)
--- NOTE | 2020-12-01 12:04 | EDM.PDOC ---
ED HPI GENERAL MEDICAL PROBLEM - General Stated Complaint: CHEST PAIN Time Seen by Provider: 12/01/20 10:55 Source of Information: Reports: Patient History Limitations: Reports: No Limitations - History of Present Illness INITIAL COMMENTS - FREE TEXT/NARRATIVE: Patient presented to the ED because of sudden onset of chest pain which woke her up at 0600. The pain is sharp,8/10, without any associated nausea,vomiting, dyspnea or diaphoresis. Never had chest pain before but positive family history of cardiac disease. Chest Pain Score (Numeric/FACES): 7 - Related Data Allergies Allergy/AdvReac Type Severity Reaction Status Date / Time Penicillins Allergy Cannot Verified 12/01/20 11:39 Remember codeine AdvReac Mild Headache Verified 12/01/20 11:39 oxycodone [Oxycodone] AdvReac Mild Headache Verified 12/01/20 11:39 Home Meds: Home Meds Levothyroxine Sodium [Synthroid] 75 mcg PO ACBREAKFAST 02/22/16 [History] Aspirin [Halfprin] 81 mg PO BID 09/29/18 [History] Omeprazole 40 mg PO ACBREAKFAST 09/29/18 [History] Carboxymethylcellulose Sodium [Refresh Tears] 1 drop EYEBOTH TID 12/11/19 [History] Cholecalciferol (Vitamin D3) [D-2000] 2,000 unit PO DAILY 12/11/19 [History] Donepezil HCl [Aricept] 20 mg PO DAILY 12/11/19 [History] Gabapentin [Neurontin] 200 mg PO BID 12/11/19 [History] Latanoprost 1 drop EYEBOTH BEDTIME 12/11/19 [History] Propranolol [Inderal] 20 mg PO BID 12/11/19 [History] metFORMIN [Glucophage] 850 mg PO BIDMEALS 12/11/19 [History] Gabapentin [Neurontin] 200 mg PO DAILY PRN 10/11/20 [History] Mag Hydrox/Aluminum Hyd/Simeth [Mylanta Maximum Strength Liq] 10 ml PO QID PRN 10/11/20 [History] SUMAtriptan succinate [Imitrex] 100 mg PO BID PRN 10/11/20 [History] Topiramate 50 mg PO BEDTIME 10/11/20 [History] guaiFENesin/Dextromethorphan [Guaifenesin-Dm 200-20 mg/10 ml] 10 ml PO Q4HR PRN 10/11/20 [History] Acetaminophen [Tylenol Arthritis Pain] 650 mg PO Q8H PRN 11/09/20 [History] Bisacodyl [Laxative Suppository] 10 mg RC ASDIRECTED PRN 11/09/20 [History] Citalopram Hydrobromide [Celexa] 20 mg PO DAILY 11/09/20 [History] Docusate Sodium [Colace] 100 mg PO DAILY 11/09/20 [History] Insulin Degludec [Tresiba] 30 unit SQ BEDTIME 11/09/20 [History] Loperamide HCl [Imodium A-D] 2 mg PO Q6HR PRN MDD 8 mg 11/09/20 [History] Magnesium Hydroxide [Milk of Magnesia] 30 ml PO DAILY PRN 11/09/20 [History] carBAMazepine [TEGretol XR] 200 mg PO BID 11/09/20 [History] cephALEXin [Cephalexin] 500 mg PO ASDIRECTED PRN 11/09/20 [History] Past Medical History HEENT History: Reports: Cataract, Glaucoma, Hard of Hearing, Other (See Below) Other HEENT History: Presbycusis. Bilateral hearing aids Cardiovascular History: Reports: High Cholesterol, Hypertension, Other (See Below) Other Cardiovascular History: history of chest discomfort. BLOOD CLOTTING DISORDER. HYPERTENSIVE CRISIS Respiratory History: Reports: Asthma, Sleep Apnea, Other (See Below) Other Respiratory History: Uses CPAP at night. Gastrointestinal History: Reports: GERD Genitourinary History: Reports: Urinary Incontinence, Other (See Below) Other Genitourinary History: Urinary incontinence mostly at night. 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 Immunologic History: Reports: None Oncologic (Cancer) History: Reports: Uterine Dermatologic History: Reports: None - Infectious Disease History Infectious Disease History: Reports: Chicken Pox, Measles, Shingles - Past Surgical History HEENT Surgical History: Reports: None Cardiovascular Surgical History: Reports: None Respiratory Surgical History: Reports: None GI Surgical History: Reports: Appendectomy Female Surgical History: Reports: Hysterectomy, Oophorectomy Endocrine Surgical History: Reports: None Neurological Surgical History: Reports: None Musculoskeletal Surgical History: Reports: Carpal Tunnel, Hip Replacement, Other (See Below) Other Musculoskeletal Surgeries/Procedures:: Right hip replacement. left hip replacement. BUNIONECTOMY Dermatological Surgical History: Reports: None Social & Family History - Family History Family Medical History: No Pertinent Family History - Caffeine Use Caffeine Use: Reports: Coffee ED ROS GENERAL - Review of Systems Review Of Systems: See Below Constitutional: Reports: No Symptoms HEENT: Reports: No Symptoms Respiratory: Reports: No Symptoms Cardiovascular: Reports: Chest Pain Endocrine: Reports: No Symptoms GI/Abdominal: Reports: No Symptoms : Reports: No Symptoms Musculoskeletal: Reports: No Symptoms Skin: Reports: No Symptoms Neurological: Reports: No Symptoms Psychiatric: Reports: No Symptoms Hematologic/Lymphatic: Reports: No Symptoms ED EXAM, GENERAL - Physical Exam Exam: See Below Exam Limited By: No Limitations General Appearance: Alert, No Apparent Distress Eye Exam: Bilateral Eye: PERRL Ears: Normal External Exam, Normal Canal Nose: Normal Inspection, Normal Mucosa, No Blood Throat/Mouth: Normal Inspection, Normal Lips, Normal Teeth Head: Atraumatic, Normocephalic Neck: Normal Inspection, Supple, Non-Tender Respiratory/Chest: No Respiratory Distress, Lungs Clear, Normal Breath Sounds Cardiovascular: Normal Peripheral Pulses, Regular Rate, Rhythm, No Edema, No Gallop, No JVD, No Murmur GI/Abdominal: Normal Bowel Sounds, Soft, Non-Tender, No Organomegaly Back Exam: Normal Inspection, Full Range of Motion Extremities: Normal Inspection, Normal Range of Motion, Non-Tender Course - Vital Signs Text/Narrative:: Labs/EKG/CXR result was discussed with patient ASA 324 mg po x1 NTG 0.4 mg SL x1 NS 1 L bolus Last Recorded V/S: Last Vital Signs Temp 36.5 C 12/01/20 10:52 Pulse 59 L 12/01/20 10:52 Resp 19 12/01/20 10:52 BP 142/56 H 12/01/20 12:01 Pulse Ox 100 12/01/20 10:52 - Orders/Labs/Meds Orders: Active Orders 24 hr Category Date Time Status EKG Documentation Completion [RC] ASDIRECTED Care 12/01/20 11:20 Active CXR [Chest 1V Frontal] [CR] Stat Exams 12/01/20 11:40 Taken Nitroglycerin [Nitrostat] Med 12/01/20 11:47 Active 0.4 mg SL Q5M PRN Sodium Chloride 0.9% [Normal Saline] 1,000 ml Med 12/01/20 11:30 Active IV ASDIRECTED EKG 12 Lead [EK] Routine Ther 12/01/20 11:19 Ordered Medication Orders Sodium Chloride (Normal Saline) 1,000 mls @ 999 mls/hr IV ASDIRECTED GAVIN Last Admin: 12/01/20 11:34 Dose: 999 mls/hr Documented by: ALONSO Nitroglycerin (Nitroglycerin 0.4 Mg Tab.Sl) 0.4 mg SL Q5M PRN PRN Reason: Chest Pain Last Admin: 12/01/20 12:01 Dose: 0.4 mg Documented by: ALONSO Labs: Laboratory Tests 12/01/20 12/01/20 12/01/20 Range/Units 11:30 11:30 11:30 WBC 7.1 (3.0-10.3) x10-3/uL RBC 3.60 (3.60-5.20) x10(6)uL Hgb 10.9 L (11.4-15.5) g/dL Hct 33.1 L (34.2-48.2) % MCV 91.9 (76.7-100.5) fL MCH 30.3 (23.9-33.9) pg MCHC 32.9 (31.9-34.8) g/dL RDW 13.3 (12.3-16.5) % Plt Count 194 (151-488) x10(3)uL MPV 8.1 (7.1-12.4) fL Neut % (Auto) 66.3 (30.8-76.2) % Lymph % (Auto) 25.0 (18.4-52.1) % [place] % (Auto) 8.2 (4.4-15.7) % Eos % (Auto) 0.0 L (0.6-8.1) % Baso % (Auto) 0.5 (0.2-1.5) % Neut # (Auto) 4.7 (1.5-6.3) x10-3/uL Lymph # (Auto) 1.8 (1.0-4.4) x10-3/uL [place] # (Auto) 0.6 (0.3-1.0) x10-3/uL Eos # (Auto) 0.0 (0.0-0.8) x10-3/uL Baso # (Auto) 0.0 (0.0-0.1) x10-3/uL Sodium 138 (135-145) mmol/L Potassium 5.4 H (3.5-5.3) mmol/L Chloride 102 (100-110) mmol/L Carbon Dioxide 26 (21-32) mmol/L BUN 33 H (7-18) mg/dL Creatinine 1.3 H (0.55-1.02) mg/dL Est Cr Clr Drug Dosing TNP Estimated GFR (MDRD) 40 L (>60) BUN/Creatinine Ratio 25.4 H (9-20) Glucose 116 (80-116) mg/dL Calcium 8.6 (8.6-10.2) mg/dL Total Bilirubin 0.2 (0.1-1.3) mg/dL AST 18 (5-25) IU/L ALT 21 (12-36) U/L Alkaline Phosphatase 57 (56-112) IU/L Troponin I 6.3 (4.0-60.3) pg/mL Total Protein 7.3 (6.0-8.0) g/dL Albumin 3.5 (3.2-4.6) g/dL Globulin 3.8 g/dL Albumin/Globulin Ratio 0.9 Meds: Medications Generic Name Dose Route Start Last Admin Trade Name Freq PRN Reason Stop Dose Admin Sodium Chloride 1,000 mls @ 999 mls/hr 12/01/20 11:30 12/01/20 11:34 Normal Saline IV 999 mls/hr ASDIRECTED GAVIN Administration Nitroglycerin 0.4 mg 12/01/20 11:47 12/01/20 12:01 Nitroglycerin 0.4 Mg Tab.Sl SL 0.4 mg Q5M PRN Administration Chest Pain Discontinued Medications Generic Name Dose Route Start Last Admin Trade Name Freq PRN Reason Stop Dose Admin Aspirin 324 mg 12/01/20 11:46 12/01/20 11:56 Aspirin 81 Mg Tab.Chew PO 12/01/20 11:47 324 mg NOW STA Administration Departure - Departure Time of Disposition: 13:30 Disposition: Home, Self-Care 01 Condition: Good Clinical Impression: Atypical chest pain, GERD (gastroesophageal reflux disease), Dehydration, Gastroenteritis Instructions: Nonspecific Chest Pain, Adult, [id number], Dehydration, Adult, [id number], Chest Wall Pain, [id number] Referrals: Fadi Johnson MD [Primary Care Provider] - Additional Instructions: Please read discharge instructions on Atypical chest pain, GERD, Gastroenteritis Increase oral fluids at least 2 liters a day Frequent hand washing You can take imodium 2 tablets every 6 hours as needed for diarrhea Follow up as needed Sepsis Event Note (ED) - Evaluation Sepsis Screening Result: No Definite Risk - Focused Exam Vital Signs: Vital Signs Temp Pulse Resp BP BP Pulse Ox 12/01/20 12:01 142/56 H 12/01/20 10:52 36.5 C 59 L 19 94/74 100 - My Orders Last 24 Hours: My Active Orders 12/01/20 11:19 EKG 12 Lead [EK] Routine 12/01/20 11:20 EKG Documentation Completion [RC] ASDIRECTED 12/01/20 11:30 Sodium Chloride 0.9% [Normal Saline] 1,000 ml IV ASDIRECTED 12/01/20 11:40 CXR [Chest 1V Frontal] [CR] Stat 12/01/20 11:47 Nitroglycerin [Nitrostat] 0.4 mg SL Q5M PRN - Assessment/Plan Last 24 Hours: My Active Orders 12/01/20 11:19 EKG 12 Lead [EK] Routine 12/01/20 11:20 EKG Documentation Completion [RC] ASDIRECTED 12/01/20 11:30 Sodium Chloride 0.9% [Normal Saline] 1,000 ml IV ASDIRECTED 12/01/20 11:40 CXR [Chest 1V Frontal] [CR] Stat 12/01/20 11:47 Nitroglycerin [Nitrostat] 0.4 mg SL Q5M PRN
[2020-12-01] MEDS: Alum Hydroxide/Mag Hydroxide 15 ML, Lidocaine 2% 15 ML PO ONE ×2 (12:59)
[2020-12-01 14:08] VITALS: BP 148/57; PULSE 62
--- NOTE | 2020-12-01 15:48 | CR ---
INDICATION: Chest pain. CHEST ONE VIEW: A single AP upright view of the chest in a wheelchair was obtained 12/01/20 and compared with 11/08/20 and 10/11/20 again revealing the heart to be within normal limits but likely near the upper limits of normal in size. Evidence of exogenous obesity is again noted. Poor inspiration emphasizes markings somewhat without a definite active infiltrate or effusion. IMPRESSION: No acute process. MTDD
== END 2020-12-01 13:52 | disposition home or self-care (01) ==
LOC: FB.ED 10:52
DX: K21.9 Gastro-esophageal reflux disease without esophagitis (principal); E86.0 Dehydration; K52.9 Noninfective gastroenteritis and colitis, unspecified; I10 Essential (primary) hypertension; J45.909 Unspecified asthma, uncomplicated; M06.9 Rheumatoid arthritis, unspecified; E11.42 Type 2 diabetes mellitus with diabetic polyneuropathy; E03.9 Hypothyroidism, unspecified; E66.9 Obesity, unspecified; Z88.0 Allergy status to penicillin; Z88.5 Allergy status to narcotic agent; Z79.82 Long term (current) use of aspirin; Z79.84 Long term (current) use of oral hypoglycemic drugs; Z79.899 Other long term (current) drug therapy
CPT/HCPCS: 36415; 71045; 80053; 84484; 85025; 93005; 99285; A9270; J7030

== ENCOUNTER 2021-07-05 11:46 | Emergency (ER) | payer MEDICARE, OTHER ==
[2021-07-05] MEDS ORDERED: Acetaminophen 500 MG Tab PO ONE (12:30)
[2021-07-05] MEDS ORDERED: Aspirin 325 MG Tab.EC PO ONE (12:31)
--- NOTE | 2021-07-05 13:22 | EDM.PDOC ---
ED HPI GENERAL MEDICAL PROBLEM - General Stated Complaint: FALL Time Seen by Provider: 07/05/21 11:55 Source of Information: Reports: Patient History Limitations: Reports: No Limitations - History of Present Illness INITIAL COMMENTS - FREE TEXT/NARRATIVE: c/o pain after fall pt from long-term, doing well, not been ill, ate her bfast, she dropped something on floor in her room, she moved her walker out of the way and bend down to pick it up, her right foot slipped on the floor and she fell backward and hit her upper back and head on the floor she has a minor LEON, discomfort across her upper back b/l, and soreness in her R hip her R hip is feeling better, altho she was concerned re R hip fx on prelim ED read the XR R hip and pelvis show no fx and well positioned hip prostehsis pt prefers Excedrin over APAP as "APAP takes too long to work," agreed to both here - Related Data Allergies Allergy/AdvReac Type Severity Reaction Status Date / Time Penicillins Allergy Cannot Verified 12/01/20 11:39 Remember codeine AdvReac Mild Headache Verified 12/01/20 11:39 oxycodone [Oxycodone] AdvReac Mild Headache Verified 12/01/20 11:39 Home Meds: Home Meds Levothyroxine Sodium [Synthroid] 75 mcg PO ACBREAKFAST 02/22/16 [History] Aspirin [Halfprin] 81 mg PO BID 09/29/18 [History] Omeprazole 40 mg PO ACBREAKFAST 09/29/18 [History] Carboxymethylcellulose Sodium [Refresh Tears] 1 drop EYEBOTH TID 12/11/19 [History] Cholecalciferol (Vitamin D3) [D-2000] 2,000 unit PO DAILY 12/11/19 [History] Donepezil HCl [Aricept] 20 mg PO DAILY 12/11/19 [History] Gabapentin [Neurontin] 200 mg PO BID 12/11/19 [History] Latanoprost 1 drop EYEBOTH BEDTIME 12/11/19 [History] Propranolol [Inderal] 20 mg PO BID 12/11/19 [History] metFORMIN [Glucophage] 850 mg PO BIDMEALS 12/11/19 [History] Gabapentin [Neurontin] 200 mg PO DAILY PRN 10/11/20 [History] Mag Hydrox/Aluminum Hyd/Simeth [Mylanta Maximum Strength Liq] 10 ml PO QID PRN 10/11/20 [History] SUMAtriptan succinate [Imitrex] 100 mg PO BID PRN 10/11/20 [History] Topiramate 50 mg PO BEDTIME 10/11/20 [History] guaiFENesin/Dextromethorphan [Guaifenesin-Dm 200-20 mg/10 ml] 10 ml PO Q4HR PRN 10/11/20 [History] Acetaminophen [Tylenol Arthritis Pain] 650 mg PO Q8H PRN 11/09/20 [History] Bisacodyl [Laxative Suppository] 10 mg RC ASDIRECTED PRN 11/09/20 [History] Citalopram Hydrobromide [Celexa] 20 mg PO DAILY 11/09/20 [History] Docusate Sodium [Colace] 100 mg PO DAILY 11/09/20 [History] Insulin Degludec [Tresiba] 30 unit SQ BEDTIME 11/09/20 [History] Loperamide HCl [Imodium A-D] 2 mg PO Q6HR PRN MDD 8 mg 11/09/20 [History] Magnesium Hydroxide [Milk of Magnesia] 30 ml PO DAILY PRN 11/09/20 [History] carBAMazepine [TEGretol XR] 200 mg PO BID 11/09/20 [History] cephALEXin [Cephalexin] 500 mg PO ASDIRECTED PRN 11/09/20 [History] Past Medical History HEENT History: Reports: Cataract, Glaucoma, Hard of Hearing, Other (See Below) Other HEENT History: Presbycusis. Bilateral hearing aids Cardiovascular History: Reports: High Cholesterol, Hypertension, Other (See Below) Other Cardiovascular History: history of chest discomfort. BLOOD CLOTTING DISORDER. HYPERTENSIVE CRISIS Respiratory History: Reports: Asthma, Sleep Apnea, Other (See Below) Other Respiratory History: Uses CPAP at night. Gastrointestinal History: Reports: GERD Genitourinary History: Reports: Urinary Incontinence, Other (See Below) Other Genitourinary History: Urinary incontinence mostly at night. 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 Immunologic History: Reports: None Oncologic (Cancer) History: Reports: Uterine Dermatologic History: Reports: None - Infectious Disease History Infectious Disease History: Reports: Chicken Pox, Measles, Shingles - Past Surgical History HEENT Surgical History: Reports: None Cardiovascular Surgical History: Reports: None Respiratory Surgical History: Reports: None GI Surgical History: Reports: Appendectomy Female Surgical History: Reports: Hysterectomy, Oophorectomy Endocrine Surgical History: Reports: None Neurological Surgical History: Reports: None Musculoskeletal Surgical History: Reports: Carpal Tunnel, Hip Replacement, Other (See Below) Other Musculoskeletal Surgeries/Procedures:: Right hip replacement. left hip replacement. BUNIONECTOMY Dermatological Surgical History: Reports: None Social & Family History - Family History Family Medical History: No Pertinent Family History - Caffeine Use Caffeine Use: Reports: None ED ROS GENERAL - Review of Systems Review Of Systems: See Below Constitutional: Reports: No Symptoms HEENT: Reports: No Symptoms Respiratory: Reports: No Symptoms Cardiovascular: Reports: No Symptoms Endocrine: Reports: No Symptoms GI/Abdominal: Reports: No Symptoms : Reports: No Symptoms Musculoskeletal: Reports: Back Pain, Joint Pain. Denies: Neck Pain Skin: Reports: No Symptoms Neurological: Reports: Headache, Other (slight LEON, on ASA daily) Psychiatric: Reports: No Symptoms Hematologic/Lymphatic: Reports: No Symptoms Immunologic: Reports: No Symptoms ED EXAM, GENERAL - Physical Exam Exam: See Below Exam Limited By: No Limitations General Appearance: Alert, WD/WN, No Apparent Distress, Other (very [place]MA[place], smiles, pleasant, normal speech) Eye Exam: Bilateral Eye: EOMI, PERRL Ears: Hearing Loss Nose: Normal Inspection, Normal Mucosa, No Blood Throat/Mouth: Normal Inspection, Normal Voice, No Airway Compromise Head: Atraumatic, Normocephalic, Other (no swell/tender/ecchymosis posteriorly) Neck: Normal Inspection, Supple, Non-Tender, Other (good ROM with no tenderness on palpation or movement) Respiratory/Chest: No Respiratory Distress, Lungs Clear, Normal Breath Sounds, Chest Non-Tender Cardiovascular: Regular Rate, Rhythm, Other (trace pretib edema b/l, 2/6 MARIAM at LSB) GI/Abdominal: Soft, Non-Tender, No Distention Back Exam: Normal Inspection, Full Range of Motion Extremities: Normal Inspection, Normal Range of Motion, Non-Tender, No Pedal Edema Neurological: Alert, Oriented, CN II-XII Intact, Normal Cognition, No Motor/Sensory Deficits Psychiatric: Normal Affect, Normal Mood Skin Exam: Warm, Dry, Intact, Normal Color, No Rash Lymphatic: No Adenopathy Course - Orders/Labs/Meds Orders: Active Orders 24 hr Category Date Time Status Hip Min 2V or 3V w Pelvis Rt [CR] Stat Exams 07/05/21 12:29 Taken Meds: Medications Discontinued Medications Generic Name Dose Route Start Last Admin Trade Name Freq PRN Reason Stop Dose Admin Acetaminophen 1,000 mg 07/05/21 12:30 07/05/21 12:40 Acetaminophen 500 Mg Tab PO 07/05/21 12:31 1,000 mg ONETIME ONE Administration Aspirin 650 mg 07/05/21 12:31 07/05/21 12:40 Aspirin 325 Mg Tab.Ec PO 07/05/21 12:32 650 mg ONETIME ONE Administration - Re-Assessments/Exams Free Text/Narrative Re-Assessment/Exam: 07/05/21 13:36 pt felt better after Excedrin and APAP, still soreness at head and shoulders, should doing okay no clinical indication for imaging, pt to be re-evaluated if sxs get worse Departure - Departure Time of Disposition: 13:26 Disposition: DC/Tfer to [facility] Condition: Good Clinical Impression: Minor head injury, Contusion of upper back, Contusion of right hip - Discharge Information *PRESCRIPTION DRUG MONITORING PROGRAM REVIEWED*: Not Applicable *COPY OF PRESCRIPTION DRUG MONITORING REPORT IN PATIENT LEROY: Not Applicable Instructions: Head Injury, Adult, Contusion Referrals: Fadi Johnson MD [Primary Care Provider] - Additional Instructions: Continue your regular medications. Take Excedrin 2 tabs and acetaminophen 500 mg 2 tabs with meals and bedtime for 2 days, longer if needed. Rest today. Be sure to use walker when on your feet. Move/walk slowly until you are feeling better. Use ice for 10 minutes every 2 hours. See your doctor in 2-3 days if you are not feeling completely back to normal. - My Orders Last 24 Hours: My Active Orders 07/05/21 12:29 Hip Min 2V or 3V w Pelvis Rt [CR] Stat - Assessment/Plan Last 24 Hours: My Active Orders 07/05/21 12:29 Hip Min 2V or 3V w Pelvis Rt [CR] Stat
--- NOTE | 2021-07-05 16:36 | CR ---
INDICATION: Fell backward from a squat. Pain in right hip. RIGHT HIP WITH PELVIS: Frontal view of the pelvis with frontal view and lateral view of the right hip revealed mild degenerative changes at sacroiliac joints. Total hip arthroplasties are noted bilaterally. The prostheses appear to be in good position and alignment, without evidence of a complicating process - no acute fracture or dislocation. IMPRESSION: No acute fracture or dislocation. MTDD
[2021-07-05 20:27] VITALS: BP 161/67; PULSE 63
== END 2021-07-05 14:54 ==
LOC: FB.ED 11:46
DX: S70.01XA Contusion of right hip, initial encounter (principal); S09.90XA Unspecified injury of head, initial encounter; S20.223A Contusion of bilateral back wall of thorax, initial encounter; E78.00 Pure hypercholesterolemia, unspecified; I10 Essential (primary) hypertension; E11.9 Type 2 diabetes mellitus without complications; E03.9 Hypothyroidism, unspecified; Z90.710 Acquired absence of both cervix and uterus; Z90.49 Acquired absence of other specified parts of digestive tract; Z88.0 Allergy status to penicillin; Z88.5 Allergy status to narcotic agent; Z88.8 Allergy status to other drugs, medicaments and biological substances; Z79.82 Long term (current) use of aspirin; Z79.899 Other long term (current) drug therapy; Z79.4 Long term (current) use of insulin; X58.XXXA Exposure to other specified factors, initial encounter
CPT/HCPCS: 73502-RT; 99283-25; A9270-GY

== ENCOUNTER 2021-10-28 18:55 | Emergency (ER) | payer MEDICARE, OTHER ==
[2021-10-28] MEDS ORDERED: hydrALAZINE 20 MG/ML SDV IM STA (19:44)
[2021-10-28] MEDS ORDERED: LORazepam 1 MG Tab PO STA (19:44)
[2021-10-28] MEDS ORDERED: Ketorolac 30 MG/ML SDV IM STA (19:44)
[2021-10-28 21:08] LABS: CORONAVIRUS COVID-19 NAA NEGATIVE (NEGATIVE)
[2021-10-28 23:15] VITALS: BP 190/74; PULSE 66
== END 2021-10-28 21:20 ==
LOC: FB.ED 18:55
DX: R07.89 Other chest pain (principal); F41.0 Panic disorder [episodic paroxysmal anxiety]; I12.9 Hypertensive chronic kidney disease with stage 1 through stage 4 chronic kidney disease, or unspecified chronic kidney disease; E11.22 Type 2 diabetes mellitus with diabetic chronic kidney disease; N18.9 Chronic kidney disease, unspecified; E78.00 Pure hypercholesterolemia, unspecified; K21.9 Gastro-esophageal reflux disease without esophagitis; E03.9 Hypothyroidism, unspecified; E66.9 Obesity, unspecified; Z68.30 Body mass index [BMI] 30.0-30.9, adult; Z88.0 Allergy status to penicillin; Z88.5 Allergy status to narcotic agent; Z79.899 Other long term (current) drug therapy; Z79.82 Long term (current) use of aspirin; Z79.4 Long term (current) use of insulin; Z20.822 Contact with and (suspected) exposure to COVID-19
CPT/HCPCS: 0240U; 36415; 80053; 83735; 84484; 85025; 93005; 96372; 99285; A9270; J0360; J1885

== ENCOUNTER 2022-04-04 16:47 | Emergency (ER) | payer MEDICARE, OTHER ==
[2022-04-04] MEDS ORDERED: Acetaminophen 500 MG Tab PO ONE (17:40)
[2022-04-04 17:44] VITALS: PULSE 68
[2022-04-04 18:12] LABS: ESTIMATED GFR 43 mL/min (>60)
[2022-04-04] MEDS ORDERED: Hydrochlorothiazide 25 MG Tab PO ONE (19:02)
[2022-04-04 20:58] VITALS: BP 169/89
== END 2022-04-04 20:55 | disposition home or self-care (01) ==
LOC: FB.ED 16:47
DX: E87.5 Hyperkalemia (principal); I10 Essential (primary) hypertension; B34.9 Viral infection, unspecified; E11.9 Type 2 diabetes mellitus without complications; E66.9 Obesity, unspecified; Z68.39 Body mass index [BMI] 39.0-39.9, adult; Z20.822 Contact with and (suspected) exposure to COVID-19; Z88.0 Allergy status to penicillin; Z88.5 Allergy status to narcotic agent; Z79.899 Other long term (current) drug therapy; Z79.82 Long term (current) use of aspirin; Z79.4 Long term (current) use of insulin; Z79.84 Long term (current) use of oral hypoglycemic drugs; Z90.49 Acquired absence of other specified parts of digestive tract; Z90.710 Acquired absence of both cervix and uterus
CPT/HCPCS: 36415; 80048; 81001; 85027; 99283; A9270; U0002

== ENCOUNTER 2022-05-26 11:54 | Inpatient (IN) | payer MEDICARE, OTHER ==
[2022-05-26] MEDS ORDERED: Sodium Chloride 0.9% 10 ML Syringe FLUSH PRN (14:02)
[2022-05-26 14:13] LABS: ESTIMATED GFR 24 mL/min (>60)
[2022-05-26] MEDS ORDERED: Sodium Chloride 0.9% 1,000 ML IV SCH (14:15)
[2022-05-26] MEDS ORDERED: Sodium Bicarbonate 8.4% 50 MEQ/50 ML Syringe IVPUSH ONE (14:20)
[2022-05-26] MEDS ORDERED: Calcium Gluconate 10% 1 GM/10 ML SDV IVPUSH ONE (14:20)
[2022-05-26] MEDS ORDERED: Glucagon,Human Recombinant 1 MG Vial IM PRN (14:44)
[2022-05-26] MEDS ORDERED: Insulin Regular, Human 100 Units/ML 3 ML Vial SUBCUT ONE (14:44)
[2022-05-26] MEDS ORDERED: 50% Dextrose in Water 50 ML Syringe IVPUSH ONE (14:44)
[2022-05-26] MEDS ORDERED: 50% Dextrose in Water 50 ML Syringe IVPUSH PRN (14:44)
[2022-05-26 16:35] LABS: ESTIMATED GFR 27 mL/min (>60)
[2022-05-26] MEDS ORDERED: Furosemide 40 MG/4 ML VIAL IVPUSH ONE (18:34)
[2022-05-26] MEDS: Enoxaparin 30 MG/0.3 ML Syringe SUBCUT SCH (21:54)
[2022-05-26] MEDS: Sodium Chloride 0.9% 1,000 ML IV SCH (21:54)
[2022-05-27] MEDS: Sodium Chloride 0.9% 1,000 ML IV SCH (06:00)
[2022-05-27 06:58] LABS: ESTIMATED GFR 36 mL/min (>60)
[2022-05-27] MEDS ORDERED: Acetaminophen 325 MG Tab PO PRN (10:10)
[2022-05-27] MEDS ORDERED: Acetaminophen/Aspirin/Caffeine 250-250-65 MG Tab PO PRN (15:36)
[2022-05-27] MEDS ORDERED: SUMAtriptan 50 MG Tab PO PRN (15:48)
[2022-05-27] MEDS: Citalopram 20 MG Tab PO SCH (16:43)
[2022-05-27] MEDS: Levothyroxine 75 MCG Tab PO SCH (16:44)
[2022-05-27] MEDS: Gabapentin 100 MG Cap PO SCH (20:29)
[2022-05-27] MEDS: Enoxaparin 30 MG/0.3 ML Syringe SUBCUT SCH (20:29)
[2022-05-27] MEDS: Aspirin 81 MG Tab.EC PO SCH (20:30)
[2022-05-27] MEDS: Latanoprost 0.005% Ophth Soln 2.5 ML Bottle EYEBOTH SCH (20:30)
[2022-05-27] MEDS: ARIPiprazole 5 MG Tab PO SCH (20:30)
[2022-05-27] MEDS: Carboxymethylcellulose Sodium 0.5% Ophth Soln 15 ML Bottle EYEBOTH SCH (20:30)
[2022-05-27] MEDS ORDERED: Insulin Glargine,Human Rec. Analog 100 Units/ML 3 ML Pen SUBCUT ONE (20:33)
[2022-05-27] MEDS: Insulin Glargine,Human Rec. Analog 100 Units/ML 3 ML Pen SUBCUT SCH (20:34)
[2022-05-28] MEDS: Levothyroxine 75 MCG Tab PO SCH (06:06)
[2022-05-28] MEDS: Pantoprazole 40 MG Tab.CR PO SCH (06:06)
[2022-05-28] MEDS: Citalopram 20 MG Tab PO SCH (09:05)
[2022-05-28] MEDS: Donepezil 10 MG Tab PO SCH (09:06)
[2022-05-28] MEDS: Carboxymethylcellulose Sodium 0.5% Ophth Soln 15 ML Bottle EYEBOTH SCH ×3 (09:07→20:14)
[2022-05-28] MEDS: Aspirin 81 MG Tab.EC PO SCH ×2 (09:07→20:17)
[2022-05-28] MEDS: Docusate Sodium 100 MG Cap PO SCH (09:07)
[2022-05-28] MEDS: Cholecalciferol (Vitamin D3) 25 MCG Tab PO SCH (09:08)
[2022-05-28] MEDS: Cetirizine 10 MG Tab PO SCH (09:09)
[2022-05-28] MEDS: Gabapentin 100 MG Cap PO SCH ×2 (09:16→20:16)
[2022-05-28] MEDS ORDERED: Melatonin 3 MG Tab PO PRN (10:10)
[2022-05-28] MEDS ORDERED: Mupirocin Oint 22 GM Tube TOP SCH ×2 (11:45→14:00)
[2022-05-28] MEDS: Enoxaparin 30 MG/0.3 ML Syringe SUBCUT SCH (20:13)
[2022-05-28] MEDS: Latanoprost 0.005% Ophth Soln 2.5 ML Bottle EYEBOTH SCH (20:14)
[2022-05-28] MEDS: Nystatin Topical Powder 15 GM Bottle TOP SCH (20:15)
[2022-05-28] MEDS: ARIPiprazole 5 MG Tab PO SCH (20:18)
[2022-05-28] MEDS: Insulin Glargine,Human Rec. Analog 100 Units/ML 3 ML Pen SUBCUT SCH (20:19)
[2022-05-28] MEDS: Acetaminophen 500 MG Tab PO PRN (21:03)
[2022-05-29] MEDS: Levothyroxine 75 MCG Tab PO SCH (06:14)
[2022-05-29] MEDS: Pantoprazole 40 MG Tab.CR PO SCH (06:14)
[2022-05-29 06:24] LABS: ESTIMATED GFR 33 mL/min (>60)
[2022-05-29] MEDS: Acetaminophen 500 MG Tab PO PRN ×2 (06:59→20:40)
[2022-05-29] MEDS: Donepezil 10 MG Tab PO SCH (08:51)
[2022-05-29] MEDS: Citalopram 20 MG Tab PO SCH (08:52)
[2022-05-29] MEDS: Aspirin 81 MG Tab.EC PO SCH ×2 (08:52→20:32)
[2022-05-29] MEDS: Docusate Sodium 100 MG Cap PO SCH (08:52)
[2022-05-29] MEDS: Nystatin Topical Powder 15 GM Bottle TOP SCH ×2 (08:53→20:33)
[2022-05-29] MEDS: Cholecalciferol (Vitamin D3) 25 MCG Tab PO SCH (08:54)
[2022-05-29] MEDS: Carboxymethylcellulose Sodium 0.5% Ophth Soln 15 ML Bottle EYEBOTH SCH ×3 (08:54→20:34)
[2022-05-29] MEDS: Cetirizine 10 MG Tab PO SCH (08:55)
[2022-05-29] MEDS: Gabapentin 100 MG Cap PO SCH ×2 (09:05→20:32)
[2022-05-29] MEDS: Enoxaparin 30 MG/0.3 ML Syringe SUBCUT SCH (20:31)
[2022-05-29] MEDS: ARIPiprazole 5 MG Tab PO SCH (20:32)
[2022-05-29] MEDS: Latanoprost 0.005% Ophth Soln 2.5 ML Bottle EYEBOTH SCH (20:34)
[2022-05-29] MEDS: Insulin Glargine,Human Rec. Analog 100 Units/ML 3 ML Pen SUBCUT SCH (20:35)
[2022-05-30] MEDS: Pantoprazole 40 MG Tab.CR PO SCH (04:59)
[2022-05-30] MEDS: Levothyroxine 75 MCG Tab PO SCH (04:59)
[2022-05-30] MEDS ORDERED: Nystatin Topical Powder 15 GM Bottle TOP SCH (07:43)
[2022-05-30] MEDS: Donepezil 10 MG Tab PO SCH (09:14)
[2022-05-30] MEDS: Citalopram 20 MG Tab PO SCH (09:14)
[2022-05-30] MEDS: Gabapentin 100 MG Cap PO SCH (09:15)
[2022-05-30] MEDS: Aspirin 81 MG Tab.EC PO SCH (09:15)
[2022-05-30] MEDS: Docusate Sodium 100 MG Cap PO SCH (09:15)
[2022-05-30] MEDS: Carboxymethylcellulose Sodium 0.5% Ophth Soln 15 ML Bottle EYEBOTH SCH (09:16)
[2022-05-30] MEDS: Cholecalciferol (Vitamin D3) 25 MCG Tab PO SCH (09:17)
[2022-05-30] MEDS: Cetirizine 10 MG Tab PO SCH (09:17)
[2022-05-30 09:48] VITALS: BP 137/57; PULSE 77
== END 2022-05-30 13:35 | disposition home health service (06) | DRG 684 ==
LOC: FB.ED 11:54 → FB.MS 18:05 → OBSVTOIN 05-27 08:41
PROVIDERS: ADMIT Student in an Organized Health Care Education/Training Program; ATTEND Family Medicine
DX: R53.1 Weakness (principal); N17.9 Acute kidney failure, unspecified; E87.5 Hyperkalemia; L89.621 Pressure ulcer of left heel, stage 1; E83.42 Hypomagnesemia; D64.9 Anemia, unspecified; T25.231D Burn of second degree of right toe(s) (nail), subsequent encounter; N18.32 Chronic kidney disease, stage 3b; Z51.5 Encounter for palliative care; E11.42 Type 2 diabetes mellitus with diabetic polyneuropathy; K21.9 Gastro-esophageal reflux disease without esophagitis; Z20.822 Contact with and (suspected) exposure to COVID-19; E03.9 Hypothyroidism, unspecified; Z88.8 Allergy status to other drugs, medicaments and biological substances; G40.909 Epilepsy, unspecified, not intractable, without status epilepticus; E86.0 Dehydration; H91.90 Unspecified hearing loss, unspecified ear; E78.00 Pure hypercholesterolemia, unspecified; J45.909 Unspecified asthma, uncomplicated; R32 Unspecified urinary incontinence; G89.29 Other chronic pain; M54.9 Dorsalgia, unspecified; M19.90 Unspecified osteoarthritis, unspecified site; M81.0 Age-related osteoporosis without current pathological fracture; G62.9 Polyneuropathy, unspecified; E66.01 Morbid (severe) obesity due to excess calories; G43.909 Migraine, unspecified, not intractable, without status migrainosus; G47.33 Obstructive sleep apnea (adult) (pediatric); R79.0 Abnormal level of blood mineral; Z96.649 Presence of unspecified artificial hip joint; R79.89 Other specified abnormal findings of blood chemistry; E11.22 Type 2 diabetes mellitus with diabetic chronic kidney disease; I12.9 Hypertensive chronic kidney disease with stage 1 through stage 4 chronic kidney disease, or unspecified chronic kidney disease; E66.9 Obesity, unspecified; Z79.4 Long term (current) use of insulin; Z79.890 Hormone replacement therapy; Z79.82 Long term (current) use of aspirin; Z79.899 Other long term (current) drug therapy; Z97.4 Presence of external hearing-aid; Z88.0 Allergy status to penicillin; Z88.5 Allergy status to narcotic agent; Z90.710 Acquired absence of both cervix and uterus; Z90.49 Acquired absence of other specified parts of digestive tract; Z96.643 Presence of artificial hip joint, bilateral
CPT/HCPCS: 36415; 71045; 80048; 80053; 81001; 82947; 83735; 83880; 84484; 85025; 93005; 93010; 96361; 96372; 96374; 96375; 97165-GO; 97535-GO; 99284; 99285-25; A9270-GY; G0378; J0610; J1650; J1815-GY; J7030; U0002

== ENCOUNTER 2022-06-02 09:01 | Emergency (ER) | payer MEDICARE, OTHER ==
[2022-06-02 09:47] LABS: ESTIMATED GFR 27 mL/min (>60)
[2022-06-02] MEDS ORDERED: Sodium Chloride 0.9% 1,000 ML IV STA (10:32)
[2022-06-02 13:26] VITALS: BP 173/75; PULSE 84
== END 2022-06-02 13:45 | disposition home or self-care (01) ==
LOC: FB.ED 09:01
DX: S00.83XA Contusion of other part of head, initial encounter (principal); E86.0 Dehydration; E78.00 Pure hypercholesterolemia, unspecified; E11.42 Type 2 diabetes mellitus with diabetic polyneuropathy; E03.9 Hypothyroidism, unspecified; K21.9 Gastro-esophageal reflux disease without esophagitis; E66.9 Obesity, unspecified; Z88.0 Allergy status to penicillin; Z88.5 Allergy status to narcotic agent; Z79.82 Long term (current) use of aspirin; Z79.899 Other long term (current) drug therapy; Z68.35 Body mass index [BMI] 35.0-35.9, adult; Z79.4 Long term (current) use of insulin; W18.09XA Striking against other object with subsequent fall, initial encounter
CPT/HCPCS: 36415; 70450; 73030; 73502; 73562; 80053; 81001; 85025; 96360; 99284; J7030; 99282

== ENCOUNTER 2022-06-15 13:30 | Observation (INO) | payer MEDICARE, OTHER ==
[2022-06-15] MEDS ORDERED: Sodium Chloride 0.9% 1,000 ML IV ONE (13:41)
[2022-06-15 14:31] LABS: ESTIMATED GFR 24 mL/min (>60)
[2022-06-15] MEDS ORDERED: Ondansetron 4 MG/2 ML SDV IV PRN (15:36)
[2022-06-15] MEDS ORDERED: Acetaminophen 325 MG Tab PO PRN (15:36)
[2022-06-15] MEDS ORDERED: Bisacodyl 10 MG Supp RECTAL PRN (15:42)
[2022-06-15] MEDS ORDERED: Magnesium Hydroxide 400 MG/5 ML Susp 30 ML Cup PO PRN (15:42)
[2022-06-15] MEDS: Dextrose 5%-0.45% NaCl 1,000 ML IV SCH (16:24)
[2022-06-15] MEDS ORDERED: Enoxaparin 30 MG/0.3 ML Syringe SUBCUT SCH (17:00)
[2022-06-15] MEDS: SUMATRIPTAN SUCCINATE 100 MG PO PRN (17:21)
[2022-06-15] MEDS ORDERED: INSULIN DEGLUDEC 200 UNIT/ML SQ SCH (21:00)
[2022-06-15] MEDS ORDERED: ARIPIPRAZOLE 5 MG PO SCH (21:00)
[2022-06-15] MEDS ORDERED: Nystatin Topical Powder 15 GM Bottle TOP SCH (21:00)
[2022-06-15] MEDS ORDERED: Latanoprost 0.005% Ophth Soln 2.5 ML Bottle *PTOM EYEBOTH SCH (21:00)
[2022-06-15] MEDS: Aspirin 81 MG Tab.EC *PTOM PO SCH (21:14)
[2022-06-15] MEDS: GABAPENTIN 300 MG PO SCH (21:14)
[2022-06-15] MEDS: Carboxymethylcellulose Sodium 0.5% Ophth Soln 15 ML Bottle *PTOM EYEBOTH SCH (21:15)
[2022-06-16] MEDS: Dextrose 5%-0.45% NaCl 1,000 ML IV SCH (00:10)
[2022-06-16 06:24] LABS: ESTIMATED GFR 31 mL/min (>60)
[2022-06-16] MEDS ORDERED: OMEPRAZOLE 40 MG PO SCH (07:30)
[2022-06-16] MEDS ORDERED: Levothyroxine 75 MCG Tab *PTOM PO SCH (07:30)
[2022-06-16] MEDS ORDERED: Donepezil 10 MG Tab *PTOM PO SCH (09:00)
[2022-06-16] MEDS ORDERED: Cetirizine 10 MG Tab *PTOM PO SCH (09:00)
[2022-06-16] MEDS ORDERED: CITALOPRAM HYDROBROMIDE 40 MG PO SCH (09:00)
[2022-06-16] MEDS ORDERED: Hydrochlorothiazide 12.5 MG Cap *PTOM PO SCH (09:00)
[2022-06-16] MEDS ORDERED: Docusate Sodium 100 MG Cap *PTOM PO SCH (09:00)
[2022-06-16] MEDS: GABAPENTIN 300 MG PO SCH (09:03)
[2022-06-16] MEDS: SUMATRIPTAN SUCCINATE 100 MG PO PRN (09:04)
[2022-06-16] MEDS: Aspirin 81 MG Tab.EC *PTOM PO SCH (09:05)
[2022-06-16] MEDS: Carboxymethylcellulose Sodium 0.5% Ophth Soln 15 ML Bottle *PTOM EYEBOTH SCH ×2 (09:07→13:41)
[2022-06-16 13:34] VITALS: BP 136/47; PULSE 78
== END 2022-06-16 13:45 ==
LOC: FB.ED 13:30 → FB.MS 15:27
PROVIDERS: ADMIT Student in an Organized Health Care Education/Training Program; ATTEND Student in an Organized Health Care Education/Training Program
DX: R53.1 Weakness (principal); M25.551 Pain in right hip; E78.00 Pure hypercholesterolemia, unspecified; J45.909 Unspecified asthma, uncomplicated; M81.0 Age-related osteoporosis without current pathological fracture; E11.42 Type 2 diabetes mellitus with diabetic polyneuropathy; I12.9 Hypertensive chronic kidney disease with stage 1 through stage 4 chronic kidney disease, or unspecified chronic kidney disease; E03.9 Hypothyroidism, unspecified; E66.9 Obesity, unspecified; E11.22 Type 2 diabetes mellitus with diabetic chronic kidney disease; N18.31 Chronic kidney disease, stage 3a; K21.9 Gastro-esophageal reflux disease without esophagitis; G47.33 Obstructive sleep apnea (adult) (pediatric); E66.01 Morbid (severe) obesity due to excess calories; Z88.0 Allergy status to penicillin; Z88.5 Allergy status to narcotic agent; Z20.822 Contact with and (suspected) exposure to COVID-19; W19.XXXA Unspecified fall, initial encounter; Z79.890 Hormone replacement therapy; Z98.890 Other specified postprocedural states; Z79.899 Other long term (current) drug therapy; Z79.82 Long term (current) use of aspirin
CPT/HCPCS: 36415; 71045; 73502-RT; 80048; 80053; 81001; 82947; 83605; 84443; 85025; 86140; 87040; 96360; 96361; 96372; 97161-GP; 99285; A9270-GY; G0378; J1650; J7042; U0002

== ENCOUNTER 2022-06-16 12:26 | Inpatient (IN) | payer MEDICARE, OTHER ==
[2022-06-16] MEDS ORDERED: Loperamide 2 MG Cap PO PRN (16:10)
[2022-06-16] MEDS ORDERED: Magnesium Hydroxide 400 MG/5 ML Susp 30 ML Cup PO PRN (16:10)
[2022-06-16] MEDS ORDERED: CEPHALEXIN 500 MG PO PRN (16:10)
[2022-06-16] MEDS ORDERED: Bisacodyl 10 MG Supp RECTAL PRN (16:10)
[2022-06-16] MEDS ORDERED: guaiFENesin 100 MG/5 ML Soln 5 ML UD Cup PO PRN (16:10)
[2022-06-16] MEDS ORDERED: Aluminum Hydroxide/Magnesium Hydroxide Susp 30 ML Cup PO PRN (16:29)
[2022-06-16] MEDS ORDERED: SUMAtriptan 50 MG Tab PO PRN (16:30)
[2022-06-16] MEDS ORDERED: Insulin Glargine,Human Rec. Analog 100 Units/ML 3 ML Pen SUBCUT ONE (20:54)
[2022-06-16] MEDS: Insulin Glargine,Human Rec. Analog 100 Units/ML 3 ML Pen SUBCUT SCH (20:59)
[2022-06-16] MEDS: Gabapentin 300 MG Cap PO SCH (21:04)
[2022-06-16] MEDS: Aspirin 81 MG Tab.EC PO SCH (21:04)
[2022-06-16] MEDS: ARIPiprazole 5 MG Tab PO SCH (21:05)
[2022-06-16] MEDS: Carboxymethylcellulose Sodium 0.5% Ophth Soln 15 ML Bottle EYEBOTH SCH (21:05)
[2022-06-16] MEDS: Latanoprost 0.005% Ophth Soln 2.5 ML Bottle EYEBOTH SCH (21:06)
[2022-06-16] MEDS: Acetaminophen/Aspirin/Caffeine 250-250-65 MG Tab PO PRN (21:08)
[2022-06-17] MEDS: Acetaminophen 500 MG Tab PO PRN ×2 (03:17→20:49)
[2022-06-17] MEDS: Levothyroxine 75 MCG Tab PO SCH (06:31)
[2022-06-17] MEDS: Pantoprazole 40 MG Tab.CR PO SCH (06:31)
[2022-06-17] MEDS: Donepezil 10 MG Tab PO SCH (08:52)
[2022-06-17] MEDS: Docusate Sodium 100 MG Cap PO SCH (08:53)
[2022-06-17] MEDS: Hydrochlorothiazide 12.5 MG Cap PO SCH (08:53)
[2022-06-17] MEDS: Aspirin 81 MG Tab.EC PO SCH ×2 (08:53→20:43)
[2022-06-17] MEDS: Citalopram 20 MG Tab PO SCH (08:53)
[2022-06-17] MEDS: Cetirizine 10 MG Tab PO SCH (08:54)
[2022-06-17] MEDS: Cholecalciferol (Vitamin D3) 25 MCG Tab PO SCH (08:54)
[2022-06-17] MEDS: Carboxymethylcellulose Sodium 0.5% Ophth Soln 15 ML Bottle EYEBOTH SCH ×3 (08:54→20:40)
[2022-06-17] MEDS: Gabapentin 300 MG Cap PO SCH ×2 (08:59→20:41)
[2022-06-17] MEDS: Acetaminophen/Aspirin/Caffeine 250-250-65 MG Tab PO PRN (09:12)
[2022-06-17] MEDS: Latanoprost 0.005% Ophth Soln 2.5 ML Bottle EYEBOTH SCH (20:42)
[2022-06-17] MEDS: ARIPiprazole 5 MG Tab PO SCH (20:42)
[2022-06-17] MEDS: Insulin Glargine,Human Rec. Analog 100 Units/ML 3 ML Pen SUBCUT SCH (20:44)
[2022-06-18] MEDS: Levothyroxine 75 MCG Tab PO SCH (05:19)
[2022-06-18] MEDS: Pantoprazole 40 MG Tab.CR PO SCH (05:20)
[2022-06-18] MEDS: Cholecalciferol (Vitamin D3) 25 MCG Tab PO SCH (08:42)
[2022-06-18] MEDS: Aspirin 81 MG Tab.EC PO SCH ×2 (08:43→20:51)
[2022-06-18] MEDS: Cetirizine 10 MG Tab PO SCH (08:43)
[2022-06-18] MEDS: Carboxymethylcellulose Sodium 0.5% Ophth Soln 15 ML Bottle EYEBOTH SCH ×3 (08:44→20:52)
[2022-06-18] MEDS: Hydrochlorothiazide 12.5 MG Cap PO SCH (08:45)
[2022-06-18] MEDS: Docusate Sodium 100 MG Cap PO SCH (08:45)
[2022-06-18] MEDS: Donepezil 10 MG Tab PO SCH (08:46)
[2022-06-18] MEDS: Citalopram 20 MG Tab PO SCH (08:46)
[2022-06-18] MEDS: Acetaminophen/Aspirin/Caffeine 250-250-65 MG Tab PO PRN (08:47)
[2022-06-18] MEDS: Gabapentin 300 MG Cap PO SCH ×2 (08:50→20:51)
[2022-06-18] MEDS: ARIPiprazole 5 MG Tab PO SCH (20:50)
[2022-06-18] MEDS: Latanoprost 0.005% Ophth Soln 2.5 ML Bottle EYEBOTH SCH (20:52)
[2022-06-18] MEDS: Acetaminophen 500 MG Tab PO PRN (20:53)
[2022-06-18] MEDS: Insulin Glargine,Human Rec. Analog 100 Units/ML 3 ML Pen SUBCUT SCH (20:54)
[2022-06-19] MEDS: Levothyroxine 75 MCG Tab PO SCH (05:09)
[2022-06-19] MEDS: Pantoprazole 40 MG Tab.CR PO SCH (05:10)
[2022-06-19] MEDS: Carboxymethylcellulose Sodium 0.5% Ophth Soln 15 ML Bottle EYEBOTH SCH ×3 (09:02→21:03)
[2022-06-19] MEDS: Cetirizine 10 MG Tab PO SCH (09:03)
[2022-06-19] MEDS: Cholecalciferol (Vitamin D3) 25 MCG Tab PO SCH (09:03)
[2022-06-19] MEDS: Aspirin 81 MG Tab.EC PO SCH ×2 (09:03→21:02)
[2022-06-19] MEDS: Docusate Sodium 100 MG Cap PO SCH (09:03)
[2022-06-19] MEDS: Hydrochlorothiazide 12.5 MG Cap PO SCH (09:04)
[2022-06-19] MEDS: Donepezil 10 MG Tab PO SCH (09:04)
[2022-06-19] MEDS: Citalopram 20 MG Tab PO SCH (09:07)
[2022-06-19] MEDS: Gabapentin 300 MG Cap PO SCH ×2 (09:23→21:02)
[2022-06-19] MEDS: Acetaminophen/Aspirin/Caffeine 250-250-65 MG Tab PO PRN (16:30)
[2022-06-19] MEDS ORDERED: Insulin Glargine,Human Rec. Analog 100 Units/ML 3 ML Pen SUBCUT ONE (21:00)
[2022-06-19] MEDS: ARIPiprazole 5 MG Tab PO SCH (21:02)
[2022-06-19] MEDS: Acetaminophen 500 MG Tab PO PRN (21:03)
[2022-06-19] MEDS: Latanoprost 0.005% Ophth Soln 2.5 ML Bottle EYEBOTH SCH (21:03)
[2022-06-19] MEDS: Insulin Glargine,Human Rec. Analog 100 Units/ML 3 ML Pen SUBCUT SCH (21:07)
[2022-06-22] MEDS: Levothyroxine 75 MCG Tab PO SCH ×2 (19:49→23:06)
[2022-06-22] MEDS: Citalopram 20 MG Tab PO SCH ×3 (19:50→23:13)
[2022-06-22] MEDS: Donepezil 10 MG Tab PO SCH ×2 (19:50→23:14)
[2022-06-22] MEDS: Pantoprazole 40 MG Tab.CR PO SCH ×2 (19:50→23:15)
[2022-06-22] MEDS: Aspirin 81 MG Tab.EC PO SCH ×4 (19:51→21:10)
[2022-06-22] MEDS: Docusate Sodium 100 MG Cap PO SCH ×2 (19:51→23:13)
[2022-06-22] MEDS: Hydrochlorothiazide 12.5 MG Cap PO SCH ×2 (19:52→23:12)
[2022-06-22] MEDS: Gabapentin 300 MG Cap PO SCH ×3 (19:52→21:13)
[2022-06-22] MEDS: Cholecalciferol (Vitamin D3) 25 MCG Tab PO SCH ×3 (19:53→23:09)
[2022-06-22] MEDS: Carboxymethylcellulose Sodium 0.5% Ophth Soln 15 ML Bottle EYEBOTH SCH ×4 (19:53→23:11)
[2022-06-22] MEDS: Cetirizine 10 MG Tab PO SCH ×2 (19:54→23:08)
[2022-06-22] MEDS: ARIPiprazole 5 MG Tab PO SCH ×2 (19:54→21:15)
[2022-06-22] MEDS: Insulin Glargine,Human Rec. Analog 100 Units/ML 3 ML Pen SUBCUT SCH ×3 (19:55→23:08)
[2022-06-22] MEDS: Latanoprost 0.005% Ophth Soln 2.5 ML Bottle EYEBOTH SCH ×3 (19:56→23:07)
[2022-06-22] MEDS: Acetaminophen 500 MG Tab PO PRN (21:17)
[2022-06-23] MEDS: Pantoprazole 40 MG Tab.CR PO SCH (05:20)
[2022-06-23] MEDS: Levothyroxine 75 MCG Tab PO SCH (05:21)
[2022-06-23 06:36] VITALS: BP 112/44; PULSE 68
[2022-06-23] MEDS: Donepezil 10 MG Tab PO SCH (09:35)
[2022-06-23] MEDS: Citalopram 20 MG Tab PO SCH (09:37)
[2022-06-23] MEDS: Cholecalciferol (Vitamin D3) 25 MCG Tab PO SCH (09:37)
[2022-06-23] MEDS: Aspirin 81 MG Tab.EC PO SCH (09:38)
[2022-06-23] MEDS: Cetirizine 10 MG Tab PO SCH (09:38)
[2022-06-23] MEDS: Docusate Sodium 100 MG Cap PO SCH (09:38)
[2022-06-23] MEDS: Carboxymethylcellulose Sodium 0.5% Ophth Soln 15 ML Bottle EYEBOTH SCH (09:39)
[2022-06-23] MEDS: Hydrochlorothiazide 12.5 MG Cap PO SCH (09:45)
[2022-06-23] MEDS: Gabapentin 300 MG Cap PO SCH (09:48)
[2022-06-23] MEDS: Acetaminophen 500 MG Tab PO PRN (10:10)
== END 2022-07-05 10:30 | disposition home or self-care (01) | DRG 948 ==
LOC: UNDOADMIN 14:54 → FB.MS 14:54 → FB.ZCENSUS 16:01 → FB.MS 16:02
PROVIDERS: ADMIT Student in an Organized Health Care Education/Training Program; ATTEND Family Medicine
DX: R53.1 Weakness (principal); N17.9 Acute kidney failure, unspecified; Z96.642 Presence of left artificial hip joint; Z79.4 Long term (current) use of insulin; E03.9 Hypothyroidism, unspecified; E66.01 Morbid (severe) obesity due to excess calories; G47.33 Obstructive sleep apnea (adult) (pediatric); Z51.5 Encounter for palliative care; E78.00 Pure hypercholesterolemia, unspecified; J45.909 Unspecified asthma, uncomplicated; K21.9 Gastro-esophageal reflux disease without esophagitis; M54.9 Dorsalgia, unspecified; G89.29 Other chronic pain; R32 Unspecified urinary incontinence; M19.90 Unspecified osteoarthritis, unspecified site; M81.0 Age-related osteoporosis without current pathological fracture; H91.93 Unspecified hearing loss, bilateral; N18.31 Chronic kidney disease, stage 3a; E11.22 Type 2 diabetes mellitus with diabetic chronic kidney disease; I12.9 Hypertensive chronic kidney disease with stage 1 through stage 4 chronic kidney disease, or unspecified chronic kidney disease; D63.1 Anemia in chronic kidney disease; S70.01XA Contusion of right hip, initial encounter; Z88.0 Allergy status to penicillin; Z88.5 Allergy status to narcotic agent; Z79.890 Hormone replacement therapy; Z79.82 Long term (current) use of aspirin; Z79.899 Other long term (current) drug therapy; W19.XXXA Unspecified fall, initial encounter
CPT/HCPCS: 36415; 82947; 84443; 92610-GN; 97110-GP; 97165-GO; 97530-GO; 97530-GP; 97535-GO; 99305; 99309; 99315; A9270-GY; J1815-GY

== ENCOUNTER 2022-10-13 13:00 | Emergency (ER) | payer MEDICARE, OTHER ==
[2022-10-13] MEDS ORDERED: Sodium Chloride 0.9% 10 ML Syringe FLUSH PRN (13:15)
[2022-10-13 13:45] LABS: ESTIMATED GFR 33 mL/min (>60)
[2022-10-13 14:24] LABS: CORONAVIRUS COVID-19 NAA NEGATIVE (NEGATIVE)
[2022-10-13] MEDS ORDERED: Insulin Regular, Human 100 Units/ML 3 ML Vial IV ONE (14:51)
[2022-10-13] MEDS ORDERED: Albuterol 0.083% 2.5 MG/3 ML Neb Soln NEB ONE (14:51)
[2022-10-13] MEDS ORDERED: Sodium Polystyrene Sulfonate 15 GM/60 ML Susp 60 ML Bot PO ONE (14:51)
[2022-10-13] MEDS ORDERED: Glucagon,Human Recombinant 1 MG Vial IM PRN (14:51)
[2022-10-13] MEDS ORDERED: 50% Dextrose in Water 50 ML Syringe IVPUSH PRN (14:51)
[2022-10-13] MEDS ORDERED: 50% Dextrose in Water 50 ML Syringe IVPUSH ONE (14:51)
[2022-10-13] MEDS ORDERED: Sodium Bicarbonate 8.4% 50 MEQ/50 ML Syringe IVPUSH ONE (14:51)
[2022-10-13] MEDS ORDERED: Sodium Chloride 0.9% 1,000 ML IV ONE (14:54)
[2022-10-13] MEDS ORDERED: Albuterol 0.083% 2.5 MG/3 ML Neb Soln ONE (15:08)
[2022-10-13 18:23] VITALS: BP 154/75; PULSE 71
== END 2022-10-13 19:15 ==
LOC: FB.ED 13:00
DX: E86.0 Dehydration (principal); E87.5 Hyperkalemia; I45.10 Unspecified right bundle-branch block; I10 Essential (primary) hypertension; K21.9 Gastro-esophageal reflux disease without esophagitis; M06.9 Rheumatoid arthritis, unspecified; E11.42 Type 2 diabetes mellitus with diabetic polyneuropathy; E03.9 Hypothyroidism, unspecified; E66.9 Obesity, unspecified; Z88.0 Allergy status to penicillin; Z88.5 Allergy status to narcotic agent; Z79.4 Long term (current) use of insulin; Z79.899 Other long term (current) drug therapy; Z20.822 Contact with and (suspected) exposure to COVID-19
CPT/HCPCS: 0241U; 36415; 71045; 80053; 81001; 82947; 83735; 84132; 84484; 85025; 86140; 87086; 93005; 93010; 96361; 96374; 96375; 99284; 99285; A9270; J1815; J7030

== ENCOUNTER 2022-11-05 10:49 | Emergency (ER) | payer MEDICARE, OTHER ==
[2022-11-05 11:31] LABS: ESTIMATED GFR 36 mL/min (>60)
[2022-11-05 11:38] LABS: HEMOGLOBIN A1C 8.2 % (<5.7)
[2022-11-05 13:24] LABS: CORONAVIRUS COVID-19 NAA NEGATIVE (NEGATIVE)
[2022-11-05 13:46] VITALS: BP 163/70; PULSE 61
== END 2022-11-05 14:15 | disposition home or self-care (01) ==
LOC: FB.ED 10:49
DX: E11.65 Type 2 diabetes mellitus with hyperglycemia (principal); E78.00 Pure hypercholesterolemia, unspecified; G47.33 Obstructive sleep apnea (adult) (pediatric); I12.9 Hypertensive chronic kidney disease with stage 1 through stage 4 chronic kidney disease, or unspecified chronic kidney disease; E11.22 Type 2 diabetes mellitus with diabetic chronic kidney disease; N18.31 Chronic kidney disease, stage 3a; E83.42 Hypomagnesemia; E03.9 Hypothyroidism, unspecified; E66.9 Obesity, unspecified; Z68.30 Body mass index [BMI] 30.0-30.9, adult; Z79.899 Other long term (current) drug therapy; Z88.0 Allergy status to penicillin; Z88.5 Allergy status to narcotic agent; Z20.822 Contact with and (suspected) exposure to COVID-19
CPT/HCPCS: 0241U; 36415; 71045; 80053; 81001; 83036; 83605; 83735; 83880; 84443; 85025; 86140; 87040; 99284